=== PATIENT | male | born 1985 | race Caucasian/White ===

== ENCOUNTER 2024-03-22 20:14 | Inpatient (IN) | payer SELFPAY ==
[2024-03-22] VITALS (14 sets, daily range): BP systolic 147–194; BP diastolic 108–150; PULSE 64–96; RESP 10–19; TEMP 36.4; O2SAT 90–96
--- NOTE | ~2024-03-22 | CT_ITS ---
EXAMINATION: CT abdomen pelvis wo con DATE: 03/26/2024 15:37 INDICATION: Acute abdominal pain. TECHNIQUE: Computed tomography (CT) of the abdomen and pelvis was performed without intravenous contr ast. Automated exposure control and iterative reconstruction technique were employed. The dose-length product was 2081.70 mGy-cm. COMPARISON: CT abdomen and pelvis 03/22/2024 FINDINGS: The visualized portions of the lung bases demonstrate moderate atelectasis. There are small pleural effusions. The heart size is normal. No pericardial effusion. There are coronary artery calc ifications. There is diffuse hepatic steatosis. There is contrast in the gallbladder, which is normal in size. The spleen is normal. There is fat stranding around the pancreas, consistent with acute int erstitial pancreatitis. The adrenal glands and kidneys are normal. The prostate is mildly enlarged. T here are no dilated loops of bowel. The appendix is normal. There is a small volume of ascites. There are no pathologically enlarged lymph nodes. There is mild lumbar spondylosis. IMPRESSION: 1. Acute interstitial pancreatitis, stable from 03/22/2024. 2. Worsened small volume of ascites. 3. Worsened small pleural effusions. Reviewed, dictated and finalized at location A. TRICIAN SHIP
--- NOTE | ~2024-03-22 | US_ITS ---
EXAMINATION: US abdomen limited DATE: 03/27/2024 11:14 INDICATION: Abdominal pain. Biliary sludge. TECHNIQUE: Multiple grayscale and Doppler ultrasound images of the abdomen were obtained. COMPARISON: CT abdomen and pelvis 03/26/2024 FINDINGS: The pancreas is indistinct, consistent with pancreatitis. There is diffuse hepatic steatosi s. There is no abnormal flow in main portal vein. The gallbladder is normal in size. No gallstones or gallbladder wall thickening. There is no sonographic Babin's sign. The common duct is normal and me asures 5 mm. IMPRESSION: 1. Normal gallbladder. 2. Acute pancreatitis. 3. Diffuse hepatic steatosis. Reviewed, dictated and finalized at location A. E DEVELOPER
--- NOTE | ~2024-03-22 | MR_ITS ---
EXAMINATION: MR MRCP wo/w con/w 3D wo ind DATE: 03/27/2024 10:49 INDICATION: Acute interstitial pancreatitis. Assess for IPMN TECHNIQUE: Magnetic resonance imaging (MRI) of the abdomen was performed without and with 20 mL Multi venessa intravenous contrast. Sequences included coronal T2-weighted SS-FSE, coronal T2-weighted FS SS- FSE, coronal T2-weighted FS FIESTA, axial T2-weighted FS FIESTA, axial T2-weighted FIESTA, sagittal T 2-weighted SS-FSE, axial T1-weighted dual-echo FSPGR, axial T2-weighted SS-FSE, axial T1-weighted LAV A, axial T2-weighted STIR FSE. Thick-slab T2-weighted FRFSE-XL images were obtained for magnetic reso nance cholangiopancreatography (MRCP). Rotating maximum intensity projection 3-D reconstructions of t he volumetric data were created by the technologist. Postcontrast sequences included a time course of axial T1-weighted LAVA. COMPARISON: CT dated 03/26/2024 FINDINGS: ABDOMEN MRI: Heart size is normal. No pericardial effusion. There is consolidation along the dependen t bilateral lung bases which could represent atelectasis or pneumonia. Tiny bilateral pleural effusio ns. Hepatomegaly with diffuse hepatic steatosis. Gallbladder, spleen, bilateral adrenal glands and ki dneys are normal. There is prominent peripancreatic stranding consistent with acute interstitial panc reatitis. Homogeneous pancreatic parenchymal enhancement with no evident necrosis or lesions concerni ng for neoplasm. No dilation of the main pancreatic duct or side branches with no evident IPMN. No lo culated peripancreatic fluid collections. Visualized portion of the bowels are unremarkable. Small am ount of ascites scattered throughout the visualized abdomen. No pathologically enlarged abdominal lym phadenopathy. Mild lumbar spondylosis. Normal bone marrow signal throughout. ABDOMEN MRCP: No intra-axial hepatic ductal or ductal dilation or evident intraluminal filling defects to suggest c holedocholithiasis. The common bile duct measures up to 4 mm in maximal diameter which is normal. The distal main pancreatic duct near the ampulla measures up to 2 mm which is normal. The more distal ma in pancreatic duct too small in diameter to be visualized. IMPRESSION: 1. Radiographically uncomplicated acute interstitial pancreatitis. No pancreatic ductal dilation, IPM N or other suspicious pancreatic lesions. 2. Bibasilar lung disease which could represent atelectasis or pneumonia with tiny bilateral pleural effusions. 3. Hepatomegaly with diffuse hepatic steatosis. 4. Small amount of ascites scattered throughout the abdomen and pelvis likely related to the pancreat itis. Reviewed, dictated and finalized at location A. T GRADING SUPERVISOR IMPRESSION: 1. Radiographically uncomplicated acute interstitial pancreatitis. No pancreati c ductal dilation, IPMN or other suspicious pancreatic lesions. 2. Bibasilar lung disease which could represent atelectasis or pneumonia with t iny bilateral pleural effusions. 3. Hepatomegaly with diffuse hepatic steatosis. 4. Small amount of ascites scattered throughout the abdomen and pelvis likely r elated to the pancreatitis.
--- NOTE | ~2024-03-22 | CT_ITS ---
EXAMINATION: CT abdomen pelvis w con DATE: 03/22/2024 21:52 INDICATION: Abdominal pain TECHNIQUE: Computed tomography (CT) of the abdomen and pelvis was performed with 100 mL Omnipaque-350 intravenous contrast. Automated exposure control and iterative reconstruction technique were employe d. The dose-length product was 2036.68 mGy-cm. COMPARISON: None FINDINGS: Mild atelectasis in bilateral lower lobes. Heart size is normal. No pericardial or pleural effusion. Diffuse hepatic steatosis. Spleen, bilateral adrenal glands and kidneys are normal. There is prominen t peripancreatic edema with minimal amounts of fluid tracking craniocaudally in the anterior left par arenal spaces consistent with acute interstitial pancreatitis. No evident necrosis or loculated perip ancreatic fluid collections. Bowels including the appendix are normal. Bladder is normal. No free int raperitoneal gas or fluid. No pathologically enlarged abdominal or pelvic lymphadenopathy. Mild degen erative skeletal changes in the spine and pelvis. IMPRESSION: 1. Radiographically uncomplicated acute interstitial pancreatitis. 2. Diffuse hepatic steatosis. Reviewed, dictated and finalized at location A. PHERE PORTAL ARCHITECT
--- NOTE | ~2024-03-22 | XR_ITS ---
XR chest 1V portable Ordering provider: Andre Cha MD History: 38 years Male with . chest pain . Comparison: None. FINDINGS: MEDIASTINUM: The cardiac silhouette is slightly enlarged. Congestive nolvia. LUNGS: No infiltrates, effusions or pneumothorax. Bilateral interstitial changes which may indicate p neumonitis. Underlying fibrotic changes or pulmonary edema is not excluded. Clinical correlation advi sed. OTHER: No free air under the diaphragm. IMPRESSION: Bilateral interstitial changes with congestive nolvia. This may indicate pneumonitis. Underlying fibrot ic changes versus pulmonary edema is not excluded. Reviewed, dictated and finalized at location A. STERED NURSE NURSERY IMPRESSION: Bilateral interstitial changes with congestive nolvia. This may indicate pneumoni tis. Underlying fibrotic changes versus pulmonary edema is not excluded.
--- NOTE | ~2024-03-22 | XR_ITS ---
EXAMINATION: XR chest 1V portable DATE: 03/26/2024 09:17 INDICATION: Leukocytosis TECHNIQUE: frontal view of the chest was obtained. COMPARISON: Chest radiograph dated 03/22/2024 FINDINGS: Increased linear, bandlike opacities airspace opacities in the lateral lower lung zones which could r epresent atelectasis or pneumonia. Calcified nodules in the right lower lung zone consistent with old granulomatous disease. No pleural effusion or pneumothorax. The cardiomediastinal silhouette is norm al. IMPRESSION: 1. New opacities in the bilateral lower lung zones which could represent atelectasis, pneumonia or co mbination thereof. Reviewed, dictated and finalized at location A. GRAPH OFFICE TELEPHONE CLERK IMPRESSION: 1. New opacities in the bilateral lower lung zones which could represent atelec tasis, pneumonia or combination thereof.
--- NOTE | 2024-03-22 20:19 | ECG_ITS ---
Test Date: 2024-03-22 20:17:51 Measurements Intervals [place] Rate: 89 P: 31 [place]: 163 QRS: 49 QRSD: 98 T: 96 QT: 391 QTc: 476 Interpretive Statements SINUS RHYTHM VOLTAGE CRITERIA FOR LVH ST-T WAVE ABNORMALITY IN HIGH LATERAL LEADS- CONSIDER ISCHEMIA BASELINE ARTIFACT- I, II, III, AVR, AVL, AVF, V5-V6 ABNORMAL ECG No previous ECG available for comparison Electronically Signed On 03-22-2024 20:38:20 ROLLER OPERATOR by Per Restrepo D.O.
[2024-03-22] MEDS: HYDROmorphone HCL INJ (*CRX) 1 MG/ML SYR IV PUSH ×5 (20:23→23:06)
[2024-03-22] MEDS: ONDANSETRON INJ 4 MG/2 ML VIAL IV PUSH (20:27)
--- NOTE | 2024-03-22 20:28 | ED.GENADULT ---
HPI - General Adult General Chief complaint: Chest Pain Stated complaint: STEMI History of Present Illness HPI narrative: patient is a 38-year-old gentleman presents emergency department with chief complaint of chest pain. Patient reports that he had a heart attack about a year ago whenever he was in [place] the patient states that he has heart failure and reports that he has been poorly compliant with his medications due to cost. The patient states the pain has been ongoing since this afternoon. The patient reports that it is a sharp type pain reports that it is not improved by anything reports he is given aspirin prior to EMS arrival and reports that the pain started after eating today Related Data Allergies Allergy/AdvReac Type Severity Reaction Status Date / Time RAGWEED Allergy Mild Uncoded 08/07/09 06:53 Review of Systems Review of Systems: A 10 system review of systems was completed on the patient and is negative except for what is stated in the HPI. Nursing and ancillary documentation was reviewed. Exam Narrative: GENERAL: Well-appearing, well-nourished, and in no acute distress. HEAD: Normocephalic, atraumatic. EYES: PERRLA and EOMI. ENT: Nares clear, no rhinorrhea or epistaxis. Mucous membranes moist. NECK: Supple. CHEST: Clear to auscultation. No respiratory distress. HEART: Regular rate and rhythm. No murmur heard. Normal peripheral pulses. ABDOMEN: Soft, nontender, nondistended, normal active bowel sounds. EXTREMITIES: Normal range of motion. No edema. SKIN: Warm, dry, no rash. NEURO: No focal deficits. Alert and oriented x3. PSYCH: Normal mood and affect. Course Vital Signs Vital signs: Vital Signs Temperature 36.4 C L 03/22/24 20:14 Pulse Rate 92 03/22/24 20:14 Respiratory Rate 13 03/22/24 20:14 Blood Pressure 179/131 H 03/22/24 20:14 Pulse Oximetry 96 03/22/24 20:14 Oxygen Delivery Room Air 03/22/24 20:14 Temperature 36.4 C L 03/22/24 20:14 Pulse Rate 95 03/22/24 23:15 Respiratory Rate 19 03/22/24 23:15 Blood Pressure 194/115 H 03/22/24 23:02 Pulse Oximetry 95 03/22/24 23:02 Oxygen Delivery Room Air 03/22/24 20:30 Medical Decision Making MDM Narrative Medical decision making narrative: differential diagnosis includes ACS, pancreatitis, gastritis, laboratory studies were obtained on the patient which showed a significantly elevated lipase troponin was negative CT scan of the abdomen pelvis showed acute pancreatitis EKG showed no acute ST elevations Vital Signs Vital Signs: Vital Signs Temperature 36.4 C L 03/22/24 20:14 Pulse Rate 92 03/22/24 20:14 Respiratory Rate 13 03/22/24 20:14 Blood Pressure 179/131 H 03/22/24 20:14 Pulse Oximetry 96 03/22/24 20:14 Oxygen Delivery Room Air 03/22/24 20:14 Temperature 36.4 C L 03/22/24 20:14 Pulse Rate 95 03/22/24 23:15 Respiratory Rate 19 03/22/24 23:15 Blood Pressure 194/115 H 03/22/24 23:02 Pulse Oximetry 95 03/22/24 23:02 Oxygen Delivery Room Air 03/22/24 20:30 Lab Data 03/22/24 20:26 03/22/24 20:26 Labs: Lab Results 03/22/24 03/22/24 03/22/24 Range/Units 20:26 22:14 23:31 WBC 10.7 H (4.5-10.0) K/mm3 RBC 5.90 (4.6-6.20) M/mm3 Hgb 16.7 (14.0-18.0) g/dL Hct 49.8 (42.0-52.0) % MCV 84.4 (80-100) fl MCH 28.3 (26-34) pg MCHC 33.5 (32-36) g/dl RDW 13.1 (11.5-14.5) % Plt Count 267 (150-375) k/mm3 MPV 11.1 H (7.4-10.4) fl Immature Gran % (Auto) 0.6 H (0-0.5) % Neut % (Auto) 72.4 (45.5-73.1) % Lymph % (Auto) 14.9 L (18.3-44.2) % [place] % (Auto) 8.9 H (2.6-8.5) % Eos % (Auto) 2.5 (0-4.4) % Baso % (Auto) 0.7 (0.2-1.2) % Lymph # (Auto) 1.60 (0.9-3.2) K/mm3 [place] # (Auto) 1.0 H (0.1-0.6) K/mm3 Eos # (Auto) 0.3 (0-0.3) K/mm3 Baso # (Auto) 0.1 (0.0-0.1) K/mm3 Abs Immat Gran (auto) 0.06 H (0.00-0.031) K/mm3 Absolute Neuts (auto) 7.8 H (1.3-6.7) K/mm3 Absolute Nucleated RBC 0.000 (0.0-0.012) K/mm3 Nucleated RBC % 0.0 (0.0-0.2) % PT 13.0 (11.1-14.7) Seconds INR 1.0 APTT 23.4 (22.3-36.8) Seconds Sodium 138 (137-145) mmol/L Potassium 4.2 (3.4-5.0) mmol/L Chloride 100 (98-107) mmol/L Carbon Dioxide 29 (22-30) mmol/L Anion Gap 9 (4-12) mmol/L BUN 15 (9-20) mg/dL Creatinine 0.90 (0.7-1.3) mg/dL Estim Creat Clear Calc 171 ml/min Estimated GFR > 60 (59 - ) Glucose 335 H (65-110) mg/dL Calcium 9.6 (8.4-10.2) mg/dL Magnesium 2.2 (1.6-2.3) mg/dL Total Bilirubin 0.7 (0.2-1.3) mg/dL AST 22 (17-59) U/L ALT 24 (6-50) U/L Alkaline Phosphatase 98 (38-126) U/L Troponin I < 0.012 0.012 (0.000-0.034) ng/mL NT-Pro-B Natriuret Pep 206 H (19.9-100) pg/mL Total Protein 8.0 (6.3-8.2) g/dL Albumin 4.5 (3.5-5.1) g/dL Lipase 31945 H (23-300) U/L Urine Color Yellow (Yellow) Urine Appearance Clear (Clear) Urine pH 6.0 (5.0-9.0) Ur Specific [place] > 1.045 H (1.001-1.035) Urine Protein 1+ H (Negative) mg/dL Urine Glucose (UA) 3+ H (Negative) mg/dL Urine Ketones Negative (Negative) mg/dL Ur Blood (Man) Negative (Negative) Urine Nitrate Negative (Negative) Urine Bilirubin Negative (Negative) Urine Urobilinogen 0.2 (<2.0) mg/dL Leukocyte Esterase Rfl Negative (Negative) UNIQUE/UL Urine RBC 0-2 (0-2) /hpf Urine WBC 0-5 (0-3) /hpf Ur Squamous Epith Cells None seen (Few) /hpf Urine Bacteria None seen /hpf Urine Casts 0-2 Urine Opiates Screen Positive A (Negative) Urine Methadone Screen Negative (Negative) Ur Barbiturates Screen Negative (Negative) Ur Phencyclidine Scrn Negative (Negative) Ur Amphetamine Screen Negative (Negative) U Benzodiazepines Scrn Negative (Negative) Urine Cocaine Screen Negative (Negative) U Cannabinoids Screen Negative (Negative) Discharge Plan Discharge Clinical Impression: Acute pancreatitis Patient Disposition: Still a Patient Condition: Stable Follow-up/Referrals: Fred Rios MD [Primary Care Provider] - Time of Disposition: 00:07
[2024-03-22 20:31] LABS: Basophils Absolute Auto 0.1 K/mm3 (0.0-0.1); Basophils Percent Auto 0.7 % (0.2-1.2); Eosinophils Absolute Auto 0.3 K/mm3 (0-0.3); Eosinophils Percent Auto 2.5 % (0-4.4); Hematocrit 49.8 % (42.0-52.0); Hemoglobin 16.7 g/dL (14.0-18.0); Immature Granulocyte Absolute 0.06 K/mm3 (0.00-0.031); Immature Granulocyte Percent A 0.6 % (0-0.5); Lymphocytes Percent Auto 14.9 % (18.3-44.2); Mean Corpuscular HGB Conc 33.5 g/dl (32-36); Mean Corpuscular Hemoglobin 28.3 pg (26-34); Mean Corpuscular Volume 84.4 fl (80-100); Mean Platelet Volume 11.1 fl (7.4-10.4); Monocytes Percent Auto 8.9 % (2.6-8.5); Neutrophils Absolute Auto 7.8 K/mm3 (1.3-6.7); Neutrophils Percent Auto 72.4 % (45.5-73.1); Platelet Count Result 267 k/mm3 (150-375); Red Cell Distribution Width 13.1 % (11.5-14.5); White Blood Count 10.7 K/mm3 (4.5-10.0)
[2024-03-22] MEDS: PANTOPRAZOLE SODIUM IV 40 MG VIAL IV PUSH (20:41)
[2024-03-22 20:42] LABS: Alanine Aminotransferase 24 U/L (6-50); Albumin Level 4.5 g/dL (3.5-5.1); Alkaline Phosphatase 98 U/L (38-126); Anion Gap 9 mmol/L (4-12); Aspartate Amino Transferase 22 U/L (17-59); Bilirubin,Total 0.7 mg/dL (0.2-1.3); Blood Urea Nitrogen 15 mg/dL (9-20); Calcium 9.6 mg/dL (8.4-10.2); Carbon Dioxide 29 mmol/L (22-30); Chloride 100 mmol/L (98-107); Estimated CRCL calculation 171 ml/min; Estimated Glomerular Filt Rate > 60; Glucose 335 mg/dL (65-110); Magnesium 2.2 mg/dL (1.6-2.3); Potassium 4.2 mmol/L (3.4-5.0); Sodium 138 mmol/L (137-145)
[2024-03-22 20:46] LABS: Partial Thromboplastin Time 23.4 Seconds (22.3-36.8)
[2024-03-22 20:53] LABS: NT Pro B Type Natriuretic Pept 206 pg/mL (19.9-100); Troponin I < 0.012 ng/mL (0.000-0.034)
[2024-03-22] MEDS: NITROGLYCERIN OINTMENT 1 INCH DOSE TRANSDERM (20:53)
[2024-03-22] MEDS: BELLADONNA ALK/PHENOB ELIX 10 ML, MAG HYDROX/ALUMINUM HYD/SIMETH 30 ML, LIDOCAINE HCL 2... PO (21:08)
[2024-03-22 21:18] LABS: Lipase 25312 U/L (23-300)
[2024-03-22] MEDS: SODIUM CHLORIDE 0.9% IV 1,000 ML 999 ML IV CONT (22:16)
[2024-03-22 22:28] LABS: Add Urine Microscopic? YES; Appearance Urine Clear (Clear); Bacteria Urine None Seen /hpf; Bilirubin Urine Negative (Negative); Blood Urine Negative (Negative); Color Urine Yellow (Yellow); Glucose Urine UA 3+ mg/dL (Negative); Ketones Urine Negative (Negative); Leukocyte Esterase Ur Negative LEU/UL (Negative); Nitrate Urine Negative (Negative); Non Pathogenic Casts 0-2; Protein Urine 1+ mg/dL (Negative); RBC Urine 0-2 /hpf (0-2); Specific Grav Ur > 1.045 (1.001-1.035); Squamous Epithelial Cell Urine None Seen /hpf (Few); Urobilinogen Urine 0.2 mg/dL (<2.0); WBC Urine 0-5 /hpf (0-3)
[2024-03-22 22:38] LABS: Amphetamine Screen Urine Negative (Negative); Barbiturate Screen Urine Negative (Negative); Benzodiazepines Screen Urine Negative (Negative); Cannabinoid Screen Urine Negative (Negative); Cocaine Screen Urine Negative (Negative); Methadone Screen Urine Negative (Negative); Opiate Screen Urine Positive (Negative); Phencyclidine Screen Urine Negative (Negative)
--- NOTE | 2024-03-22 23:33 | ECG_ITS ---
Test Date: 2024-03-22 23:41:30 Measurements Intervals [place] Rate: 63 P: 51 [place]: 132 QRS: -8 QRSD: 92 T: 96 QT: 406 QTc: 418 Interpretive Statements SINUS RHYTHM DELAYED PRECORDIAL R/S TRANSITION VOLTAGE CRITERIA FOR LVH ST-T WAVE ABNORMALITY IN HIGH LATERAL LEADS- CONSIDER ISCHEMIA BASELINE ARTIFACT- I, II, AVR, AVL, V5-V6 ABNORMAL ECG Compared to ECG 03/22/2024 20:17:51 NO SIGNIFICANT CHANGE Electronically Signed On 03-23-2024 06:08:12 SECOND CHEF by Per Restrepo D.O.
[2024-03-23] VITALS (36 sets, daily range): BP systolic 138–217; BP diastolic 107–136; PULSE 64–116; RESP 13–28; TEMP 36.3–36.6; O2SAT 92–100; BMI 41.3
[2024-03-23] LABS: Troponin I 0.012 ng/mL (0.000-0.034)
[2024-03-23] MEDS: HYDROmorphone HCL INJ (*CRX) 1 MG/ML SYR IV PUSH ×4 (00:20→09:16)
[2024-03-23] MEDS: SODIUM CHLORIDE 0.9% IV 1,000 ML 999 ML IV CONT (00:33)
[2024-03-23] MEDS: KETOROLAC 30 MG/ML VIAL (*BKC) IV PUSH ×2 (01:02→06:47)
[2024-03-23] MEDS: SODIUM CHLORIDE 0.9% IV 1,000 ML 200 ML IV CONT (01:46)
[2024-03-23] MEDS: METOPROLOL TARTRATE INJ 5 MG/5 ML VIAL IV PUSH ×2 (01:50→03:21)
--- NOTE | 2024-03-23 02:44 | P.HP_ITS ---
H&P: HPI History of Present Illness Date/Time: 03/23/24 02:44 Chief Complaint: Chest pain Narrative: 38-year-old male with past medical history of asthma, CHF, essential hypertension, coronary artery disease, TIA and prior [place] due to hypertensive disease who presented to the ER from home via EMS due to chest pain. In the field a STEMI was called but EKG was reviewed by ER staff and was not consistent with STEMI findings. The patient reports that he was feeling okay until right after he ate Thanksgiving dinner. He then developed acute severe epigastric pain that radiated into his chest. He became acutely diaphoretic and nauseous. He reported that the symptoms or exactly like when he had had prior heart attack. He the patient admits that he has been noncompliant with his cardiac medications. He had not filled his Coreg or Lasix since January of 2023. He still had some pills left in his bottles of Coreg and Lasix. He was also supposed be on lisinopril. He is also supposed be on cholesterol medications. He states that he was on more expensive cardiac meds but was unable to pay for them. EMS reported that the patient's blood pressures on their arrival to his residence was in 250/150. The patient received 100 mcg of fentanyl, 4 mg of morphine and 2 sublingual nitroglycerin without improvement his pain. His labs demonstrated a lipase greater than 25,[address] demonstrated acute interstitial pancreatitis. The patient denies any recent alcohol use. He was also noted to have glucoses greater than 300. He denies a known history of diabetes. He has been having polydipsia, polyphagia and urinary frequency for the last 2-3 months. He has also been experiencing increased fatigue. The patient reports he has been more were short of breath today. He has noticed that he has been wh eezing but he has been living with his mother who has 3 cats. He is allergic to cats and does have history of asthma. He denies known history of COPD did but does smoke a pack of cigarettes per day and has smoked morbid cigarettes on a daily basis in the past. The patient reports that his pain is not any better despite receiving 6 mg of Dilaudid in the ER. He did receive 1 dose of Toradol which she thinks may have helped this pain more than the Dilaudid. The patient's urine drug screen was positive for opiates on presentation to the ER. He adamantly denies use of non-prescribed opiate agents. He did receive fentanyl and morphine in route to the ER. He was diagnosed with his cardiac condition in 2008 and had his last hospital stay in 2022 at which time he had a cardiac catheterization he did not receive any cardiac stents. Review of Systems Review of Systems: 12 systems were reviewed with pertinent positives and negatives per HPI. Except as documented in the HPI, all other systems were reviewed and are negative. FOR[facility]LY [facility], [facility] Past Medical History Medical History (Updated 03/23/24 @ 06:48 by Kate Henley DO) Asthma Coronary artery disease Hypertensive cardiomyopathy Hypertensive heart disease Kidney stones Morbid obesity with BMI of 40.0-44.9, adult Obstructive sleep apnea Patient never went and got a CPAP because he knew he could not afford it? TIA (transient ischemic attack) Tobacco abuse disorder Surgical History Surgical History (Updated 03/23/24 @ 06:22 by Kate Henley DO) History of cardiac catheterization Status post open reduction with internal fixation of fracture Left orbital fracture Family History Family History (Updated 03/23/24 @ 06:24 by Kate Henley DO) Mother Diabetes mellitus Social History Social History (Updated 03/23/24 @ 06:27 by Kate Henley DO) Social History: He is single. The patient moved here from [place] middle the year 2023. He is living with his mother. He has smoked 1-1/2 pack of cigarettes a day since he was 16. He served in the [employer] 6 years. He worked in [employer] after that but has been unemployed recently. He rarely drinks alcohol. He denies illicit substance use. Code status: Full code (patient states he would not want long-term intubation, tracheostomy or G-tube) Surrogate decision maker: Zahida (Mother) Smoking packs per day: 1 Smoking cigarettes per day: 20.0 Years smoked: 22 Smoking pack-years: 22.00 Smoking status: Heavy tobacco smoker Alcohol intake: current Drinks per week: 1 Substance use: never Do You Feel Safe in your Home?: Yes Lack of Transportation: No Lack of Food: Never True Current Housing: I Have Housing Concerned About Future Housing: No Difficulty Paying Gas/Electric Bills: No Difficulty Paying for Meds: YES Currently Unemployed: YES Education: Bachelor's Degree Difficulty w/ Childcare or Family Care: No 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: Yes ([facility]) Meds Home Medications and Allergies Home Medications Medication Instructions Recorded Confirmed Type aspirin 81 mg tablet,delayed 81 mg PO DAILY 03/23/24 03/23/24 History release (Adult Low Dose Aspirin) carvedilol 12.5 mg tablet 12.5 mg PO BID 03/23/24 03/23/24 History furosemide 40 mg tablet 40 mg PO DAILY 03/23/24 03/23/24 History lisinopril 10 mg tablet 10 mg PO DAILY 03/23/24 03/23/24 History loratadine 10 mg tablet (Claritin) 10 mg PO DAILY 03/23/24 03/23/24 History Allergies Allergy/AdvReac Type Severity Reaction Status Date / Time cat dander Allergy Itching Verified 03/23/24 02:29 RAGWEED Allergy Mild Itching Uncoded 03/23/24 02:29 Vital Signs Vital Signs - 24 hr 03/22/24 20:14 03/22/24 20:21 03/22/24 20:21 Temperature 97.5 F L Pulse Rate 92 91 Respiratory Rate 13 Blood Pressure 179/131 H Pulse Oximetry 96 95 Oxygen Delivery Room Air Room Air 03/22/24 20:30 03/22/24 20:32 03/22/24 22:18 Temperature Pulse Rate 80 94 Respiratory Rate 19 17 Blood Pressure 147/108 H Pulse Oximetry 95 96 96 Oxygen Delivery Room Air 03/22/24 22:30 03/22/24 22:32 03/22/24 22:45 Temperature Pulse Rate 74 74 87 Respiratory Rate 13 10 L 12 Blood Pressure 173/150 H Pulse Oximetry 94 93 94 Oxygen Delivery 03/22/24 22:46 03/22/24 23:00 03/22/24 23:02 Temperature Pulse Rate 76 96 96 Respiratory Rate 14 17 16 Blood Pressure 184/127 H 194/115 H Pulse Oximetry 90 95 95 Oxygen Delivery 03/22/24 23:15 03/22/24 23:30 03/22/24 23:45 Temperature Pulse Rate 95 95 64 Respiratory Rate 19 18 10 L Blood Pressure Pulse Oximetry 96 Oxygen Delivery 03/23/24 00:09 03/23/24 00:16 03/23/24 00:30 Temperature Pulse Rate 110 H 104 H Respiratory Rate 15 28 H Blood Pressure Pulse Oximetry 92 93 Oxygen Delivery 03/23/24 00:45 03/23/24 01:50 03/23/24 01:45 Temperature Pulse Rate 106 H 97 101 H Respiratory Rate 21 H 13 Blood Pressure Pulse Oximetry 95 97 Oxygen Delivery 03/23/24 01:47 03/23/24 01:50 03/23/24 02:00 Temperature Pulse Rate 100 99 73 Respiratory Rate 20 14 14 Blood Pressure 138/112 H 164/125 H Pulse Oximetry 97 96 92 Oxygen Delivery 03/23/24 02:01 03/23/24 02:09 03/23/24 02:24 Temperature Pulse Rate 84 89 Respiratory Rate 15 17 Blood Pressure 169/110 H 182/136 H 182/136 H Pulse Oximetry 97 97 97 Oxygen Delivery Exam Narrative: Weight 170.6 kg BMI 41.3 Const: Other: No acute distress, lying in bed with head of bed at 60? go appears stated age, morbidly obese HENMT: Other: Mucous membranes are tacky, no oral pharyngeal erythema, crowded posterior oropharynx, fair dentition Eyes: Other: Pupils are equal and reactive, extraocular movements intact although it appears if the patient's right eye may chronically be slightly deviated inward but patient does have history of prior orbital surgery which may be distorting the appearance of orbits Neck: Other: Large neck circumference, possible thyromegaly, no JVD Resp: Other: Tachypneic, diffuse wheezing bilateral upper and lower lung zones, no accessory muscle use Cardio: Other: Tachycardic, 2+ bilateral radial pedal pulses, no murmur, no JVD GI: Other: Diffuse abdominal tenderness but worse in the epigastric and right upper quadrant region, distended, normoactive bowel sounds : Other: 1 L of urine sitting in the urinal at be dside Skin: Other: No jaundice, no pallor, extensive struck nugent across the abdominal wall Neuro: Other: Alert oriented x4, speech is clear, no facial asymmetry Extrem: Other: 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, no clubbing , cyanosis or edema Psych: Other: Appropriate mood and affect, cooperative, H&P: Results Labs Labs: Laboratory Tests 03/22/24 20:26 03/22/24 20:26 03/22/24 03/22/24 03/22/24 20:26 22:14 23:31 WBC 10.7 H RBC 5.90 Hgb 16.7 Hct 49.8 MCV 84.4 MCH 28.3 MCHC 33.5 RDW 13.1 Plt Count 267 MPV 11.1 H Immature Gran % (Auto) 0.6 H Neut % (Auto) 72.4 Lymph % (Auto) 14.9 L [place] % (Auto) 8.9 H Eos % (Auto) 2.5 Baso % (Auto) 0.7 Lymph # (Auto) 1.60 [place] # (Auto) 1.0 H Eos # (Auto) 0.3 Baso # (Auto) 0.1 Abs Immat Gran (auto) 0.06 H Absolute Neuts (auto) 7.8 H Absolute Nucleated RBC 0.000 Nucleated RBC % 0.0 PT 13.0 INR 1.0 APTT 23.4 Sodium 138 Potassium 4.2 Chloride 100 Carbon Dioxide 29 Anion Gap 9 BUN 15 Creatinine 0.90 Estim Creat Clear Calc 171 Estimated GFR > 60 Glucose 335 H POC Capillary Glucose Hemoglobin A1c Calcium 9.6 Magnesium 2.2 Total Bilirubin 0.7 AST 22 ALT 24 Alkaline Phosphatase 98 Troponin I < 0.012 0.012 NT-Pro-B Natriuret Pep 206 H Total Protein 8.0 Albumin 4.5 Triglycerides Cholesterol LDL Cholesterol Direct HDL Direct Lipase 90487 H Urine Color Yellow Urine Appearance Clear Urine pH 6.0 Ur Specific [place] > 1.045 H Urine Protein 1+ H Urine Glucose (UA) 3+ H Urine Ketones Negative Ur Blood (Man) Negative Urine Nitrate Negative Urine Bilirubin Negative Urine Urobilinogen 0.2 Leukocyte Esterase Rfl Negative Urine RBC 0-2 Urine WBC 0-5 Ur Squamous Epith Cells None seen Urine Bacteria None seen Urine Casts 0-2 Urine Opiates Screen Positive A Urine Methadone Screen Negative Ur Barbiturates Screen Negative Ur Phencyclidine Scrn Negative Ur Amphetamine Screen Negative U Benzodiazepines Scrn Negative Urine Cocaine Screen Negative U Cannabinoids Screen Negative 03/23/24 03/23/24 05:21 06:16 WBC RBC Hgb Hct MCV MCH MCHC RDW Plt Count MPV Immature Gran % (Auto) Neut % (Auto) Lymph % (Auto) [place] % (Auto) Eos % (Auto) Baso % (Auto) Lymph # (Auto) [place] # (Auto) Eos # (Auto) Baso # (Auto) Abs Immat Gran (auto) Absolute Neuts (auto) Absolute Nucleated RBC Nucleated RBC % PT INR APTT Sodium Potassium Chloride Carbon Dioxide Anion Gap BUN Creatinine Estim Creat Clear Calc Estimated GFR Glucose POC Capillary Glucose 302 H Hemoglobin A1c 10.2 H Calcium Magnesium Total Bilirubin AST ALT Alkaline Phosphatase Troponin I NT-Pro-B Natriuret Pep Total Protein Albumin Triglycerides 160 H Cholesterol 187 LDL Cholesterol Direct 115 HDL Direct 35 Lipase Urine Color Urine Appearance Urine pH Ur Specific [place] Urine Protein Urine Glucose (UA) Urine Ketones Ur Blood (Man) Urine Nitrate Urine Bilirubin Urine Urobilinogen Leukocyte Esterase Rfl Urine RBC Urine WBC Ur Squamous Epith Cells Urine Bacteria Urine Casts Urine Opiates Screen Urine Methadone Screen Ur Barbiturates Screen Ur Phencyclidine Scrn Ur Amphetamine Screen U Benzodiazepines Scrn Urine Cocaine Screen U Cannabinoids Screen Impressions Chest X-Ray 03/22/24 20:58 (personally reviewed and interpreted, possible pulmonary vascular congestion and nolvia although patient appears euvolemic) IMPRESSION: Bilateral interstitial changes with congestive nolvia. This may indicate pneumonitis. Underlying fibrotic changes versus pulmonary edema is not excluded. EKG: Personally reviewed and interpreted Cardiology interpretation below Measurements Intervals [place] Rate: 63 P: 51 NM: 132 QRS: -8 QRSD: 92 T: 96 QT: 406 QTc: 418 Interpretive Statements SINUS RHYTHM DELAYED PRECORDIAL R/S TRANSITION VOLTAGE CRITERIA FOR LVH ST-T WAVE ABNORMALITY IN HIGH LATERAL LEADS- CONSIDER ISCHEMIA BASELINE ARTIFACT- I, II, AVR, AVL, V5-V6 ABNORMAL ECG Compared to ECG 03/22/2024 20:17:[address] personally reviewed and interpreted please see stat read interpretation listed under HPI. Official radiologic interpretation pending. Assessment and Plan Assessment and plan (1) Acute pancreatitis: Qualifiers: Pancreatitis type: idiopathic Acute pancreatitis complication: no infection or necrosis Qualified Code(s): K85.00 - Idiopathic acute pancreatitis without necrosis or infection Code(s): K85.90 - Acute pancreatitis without necrosis or infection, unspecified Status: Acute (2) Type 2 diabetes mellitus: Qualifiers: Diabetes mellitus long term care administrator insulin use: without residential use Diabetes mellitus complication status: with hyperglycemia Qualified Code(s): E11.65 - Type 2 diabetes mellitus with hyperglycemia Code(s): E11.9 - Type 2 diabetes mellitus without complications Status: Acute (3) Uncontrolled hypertension: Code(s): I10 - Essential (primary) hypertension Status: Acute (4) Nonadherence to medication: Code(s): Z91.148 - Patient's other noncompliance with medication regimen for other reason Status: Acute (5) Asthma: Qualifiers: Asthma severity: mild Asthma persistence: intermittent Asthma complication type: with acute exacerbation Qualified Code(s): J45.21 - Mild intermittent asthma with (acute) exacerbation Code(s): J45.909 - Unspecified asthma, uncomplicated Status: Acute (6) Tobacco abuse disorder: Code(s): Z72.0 - Tobacco use Status: Acute Plan The patient has acute uncomplicated interstitial pancreatitis most likely idiopathic in nature. Triglyceride levels were obtained after patient was admitted and were only minimally elevated. Usually pancreatitis due to hypertriglyceridemia would be seen with much higher triglyceride levels. Patient does not have any evidence of biliary involvement, gallstones or transaminases to indicate obstruction. Patient denies alcohol use or family history of pancreatitis. Initially patient was started on aggressive IV fluid hydration at 200 mL an hour but given the patient's history of hypertensive cardiomyopathy will decrease the fluid rate to 150 mL normal monitor strict I&O's and daily weights. Will monitor fluid status closely. Currently the patient appears euvolemic or mildly volume depleted with tacky to dry mucous membranes. Patient will be NPO due to his unrelenting pain and need for excessive amounts of narcotics. I do not want to cause more pancreatic irritat ion in the short term. The patient will be allowed to have home medications with sips. Patient does have uncontrolled hypertension in part due to pain but also due to nonadherence to medication regimen. Will resume the patient's home Coreg and lisinopril. Will also place patient on scheduled IV Lopressor if he cannot tolerate oral medications. Will also give the patient hydralazine 10 mg IV q.4 hours p.r.n. systolic blood pressures greater than 180. Patient is actively wheezing he may have a mild asthma exacerbation versus chronic wheezing doing due to allergic exposure and or some component of COPD. Will place patient on scheduled nebulizer treatments with Xopenex and Atrovent. Patient has new diagnosis of diabetes mellitus. The patient has likely been having hyperglycemia from months. His A1c came back greater than 10. Patient would benefit from diet lifestyle modifications. Will place patient on moderate sliding scale insulin with Accu-Cheks every 6 hours and hypoglycemia protocol. Smoking cessation education has been provided. Patient is not interested in quitting smoking. Nicotine patch was offered but patient refused. Patient has been admitted as observation status. Quality VTE Prophylaxis VTE prophylaxis: pharmacologic ordered (Lovenox 40 mg subQ daily.) Hospitalist MIPS Advance Care Plan I have confirmed that the patient's Advanced Care Plan is present, code status is documented, or surrogate decision maker is listed in patient medical record.: Yes Medication Reconciliation I have utilized all available resources to obtain, update and review the p atients current medications (includes all prescriptions, OTC, herbals, cannabis, and nutritional supplements).: Yes
[2024-03-23] MEDS: ONDANSETRON INJ 4 MG/2 ML VIAL IV PUSH ×3 (02:45→21:34)
[2024-03-23 05:35] LABS: Hemoglobin A1C 10.2 % (<5.7)
[2024-03-23 05:36] LABS: Cholesterol 187 mg/dL (0-200); HDL Direct 35 mg/dL; Triglycerides 160 mg/dL (<150)
[2024-03-23 05:47] LABS: LDL Cholesterol Direct 115 mg/dL
[2024-03-23 06:19] LABS: Glucose Point of Care 302 mg/dl (65-105)
[2024-03-23] MEDS: SODIUM CHLORIDE 0.9% IV 1,000 ML 150 ML IV CONT (06:47)
[2024-03-23] MEDS: INSULIN ASPART (*BKC) 100 UNITS/ML SUB-Q ×3 (06:48→19:01)
[2024-03-23] MEDS: IPRATROPIUM BR 0.02% INH SOLN 0.5 MG/2.5 ML VIAL INHALATION ×3 (07:16→19:28)
[2024-03-23] MEDS: LEVALBUTEROL NEB 1.25 MG/3 ML INHALATION ×3 (07:16→19:28)
[2024-03-23 07:47] LABS: Basophils Percent Auto 0.3 % (0.2-1.2); Eosinophils Percent Auto 0.3 % (0-4.4); Hematocrit 49.3 % (42.0-52.0); Hemoglobin 15.6 g/dL (14.0-18.0); Immature Granulocyte Absolute 0.06 K/mm3 (0.00-0.031); Immature Granulocyte Percent A 0.5 % (0-0.5); Lymphocytes Absolute Auto 1.03 K/mm3 (0.9-3.2); Lymphocytes Percent Auto 7.8 % (18.3-44.2); Mean Corpuscular HGB Conc 31.6 g/dl (32-36); Mean Corpuscular Hemoglobin 27.7 pg (26-34); Mean Corpuscular Volume 87.6 fl (80-100); Mean Platelet Volume 11.2 fl (7.4-10.4); Monocytes Absolute Auto 0.9 K/mm3 (0.1-0.6); Monocytes Percent Auto 7.1 % (2.6-8.5); Neutrophils Absolute Auto 11.2 K/mm3 (1.3-6.7); Platelet Count Result 230 k/mm3 (150-375); Red Blood Count 5.63 M/mm3 (4.6-6.20); Red Cell Distribution Width 13.4 % (11.5-14.5); White Blood Count 13.3 K/mm3 (4.5-10.0)
--- NOTE | 2024-03-23 07:53 | P.PNIM_ITS ---
Progress Note: A&P Assessment and Plan (1) Acute pancreatitis: Qualifiers: Acute pancreatitis complication: no infection or necrosis Pancreatitis type: idiopathic Qualified Code(s): K85.00 - Idiopathic acute pancreatitis without necrosis or infection Code(s): K85.90 - Acute pancreatitis without necrosis or infection, unspecified Status: Acute Assessment and Plan: acute uncomplicated interstitial pancreatitis most likely idiopathic in nature Patient denies alcohol use or family history of pancreatitis. LR @ 200 monitor for fluid overload/ pulmonary edema (2) Uncontrolled hypertension: Code(s): I10 - Essential (primary) hypertension Status: Acute Assessment and Plan: Will resume the patient's home Coreg and lisinopril. Will also give the patient hydralazine 10 mg IV q.4 hours p.r.n. systolic blood pressures greater than 180. (3) Type 2 diabetes mellitus: Qualifiers: Diabetes mellitus complication status: with hyperglycemia Diabetes mellitus manager long term care insulin use: without nursing home use Qualified Code(s): E11.65 - Type 2 diabetes mellitus with hyperglycemia Code(s): E11.9 - Type 2 diabetes mellitus without complications Status: Acute Assessment and Plan: A1c came back greater than 10. would benefit from diet lifestyle modifications Will place patient on moderate sliding scale insulin with Accu-Cheks every 6 hours and hypoglycemia protocol. (4) Asthma: Qualifiers: Asthma complication type: with acute exacerbation Asthma persistence: intermittent Asthma severity: mild Qualified Code(s): J45.21 - Mild intermittent asthma with (acute) exacerbation Code(s): J45.909 - Unspecified asthma, uncomplicated Status: Acute Assessment and Plan: Will place patient on scheduled nebulizer treatments with Xopenex and Atrovent. (5) Tobacco abuse disorder: Code(s): Z72.0 - Tobacco use Status: Acute Assessment and Plan: Smoking cessation education has been provided. Patient is not interested in quitting smoking. Nicotine patch was offered but patient refused. (6) Nonadherence to medication: Code(s): Z91.148 - Patient's other noncompliance with medication regimen for other reason Status: Acute (7) Acute pain: Code(s): R52 - Pain, unspecified Status: Acute Assessment and Plan: Change dilaudid to morphine and oral medications to see if this will help with better pain control Plan The patient has acute uncomplicated interstitial pancreatitis most likely idiopathic in nature. Triglyceride levels were obtained after patient was admitted and were only minimally elevated. Usually pancreatitis due to hypertriglyceridemia would be seen with much higher triglyceride levels. Patient does not have any evidence of biliary involvement, gallstones or t ransaminases to indicate obstruction. Patient denies alcohol use or family history of pancreatitis. Initially patient was started on aggressive IV fluid hydration at 200 mL an hour but given the patient's history of hypertensive cardiomyopathy will decrease the fluid rate to 150 mL normal monitor strict I&O's and daily weights. Will monitor fluid status closely. Currently the patient appears euvolemic or mildly volume depleted with tacky to dry mucous membranes. Patient will be NPO due to his unrelenting pain and need for excessive amounts of narcotics. I do not want to cause more pancreatic irritation in the short term. The patient will be allowed to have home medications with sips. Patient does have uncontrolled hypertension in part due to pain but also due to nonadherence to medication regimen. Will resume the patient's home Coreg and lisinopril. Will also place patient on scheduled IV Lopressor if he cannot tolerate oral medications. Will also give the patient hydralazine 10 mg IV q.4 hours p.r.n. systolic blood pressures greater than 180. Patient is actively wheezing he may have a mild asthma exacerbation versus chronic wheezing doing due to allergic exposure and or some component of COPD. Will place patient on scheduled nebulizer treatments with Xopenex and Atrovent. Patient has new diagnosis of diabetes mellitus. The patient has likely been having hyperglycemia from months. His A1c came back greater than 10. Patient would benefit from diet lifestyle modifications. Will place patient on moderate sliding scale insulin with Accu-Cheks every 6 hours and hypoglycemia protocol. Smoking cessation education has been provided. Patient is not interested in quitting smoking. Nicotine patch was offered but patient refused. Patient has been admitted as observation status. Time Spent With Patient Time with patient: Greater than 35 minutes Subjective Date/time seen: 03/23/24 07:53 Interval history: 38-year-old male with past medical history of asthma, CHF, essential hypert ension, coronary artery disease, TIA and prior NH due to hypertensive disease who presented to the ER from home with acute uncomplicated interstitial pancreatitis. Lipase decreased on AM labs, issues with pain control overnight and this morning switched Dilaudid to morphine and oral medications to see if that will help with better pain control. Review of Systems Review of Systems: 12 systems were reviewed with pertinent positives and negatives per HPI. Except as documented in the HPI, all other systems were reviewed and are negative. Exam Narrative: Weight 170.6 kg BMI 41.3 Const: Other: No acute distress, lying in bed with head of bed at 60? go appears stated age, morbidly obese HENMT: Other: Mucous membranes are tacky, no oral pharyngeal erythema, crowded posterior oropharynx, fair dentition Eyes: Other: Pupils are equal and reactive, extraocular movements intact although it appears if the patient's right eye may chronically be slightly deviated inward but patient does have history of prior orbital surgery which may be distorting the appearance of orbits Neck: Other: Large neck circumference, possible thyromegaly, no JVD Resp: Other: Tachypneic, diffuse wheezing bilateral upper and lower lung zones, no accessory muscle use Cardio: Other: Tachycardic, 2+ bilateral radial pedal pulses, no murmur, no JVD GI: Other: Diffuse abdominal tenderness but worse in the epigastric and right upper quadrant region, distended, normoactive bowel sounds : Other: 1 L of urine sitting in the urinal at be dside Skin: Other: No jaundice, no pallor, extensive struck nugent across the abdominal wall Neuro: Other: Alert oriented x4, speech is clear, no facial asymmetry Extrem: Other: 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, no clubbing , cyanosis or edema Psych: Other: Appropriate mood and affect, cooperative, Objective Data Vital Signs Vital Signs: Vital Signs - 24 hr 03/22/24 20:14 03/22/24 20:21 03/22/24 20:21 Temperature 97.5 F L Pulse Rate 92 91 Respiratory Rate 13 Blood Pressure 179/131 H Pulse Oximetry 96 95 Oxygen Delivery Room Air Room Air 03/22/24 20:30 03/22/24 20:32 03/22/24 22:18 Temperature Pulse Rate 80 94 Respiratory Rate 19 17 Blood Pressure 147/108 H Pulse Oximetry 95 96 96 Oxygen Delivery Room Air 03/22/24 22:30 03/22/24 22:32 03/22/24 22:45 Temperature Pulse Rate 74 74 87 Respiratory Rate 13 10 L 12 Blood Pressure 173/150 H Pulse Oximetry 94 93 94 Oxygen Delivery 03/22/24 22:46 03/22/24 23:00 03/22/24 23:02 Temperature Pulse Rate 76 96 96 Respiratory Rate 14 17 16 Blood Pressure 184/127 H 194/115 H Pulse Oximetry 90 95 95 Oxygen Delivery 03/22/24 23:15 03/22/24 23:30 03/22/24 23:45 Temperature Pulse Rate 95 95 64 Respiratory Rate 19 18 10 L Blood Pressure Pulse Oximetry 96 Oxygen Delivery 03/23/24 00:09 03/23/24 00:16 03/23/24 00:30 Temperature Pulse Rate 110 H 104 H Respiratory Rate 15 28 H Blood Pressure Pulse Oximetry 92 93 Oxygen Delivery 03/23/24 00:45 03/23/24 01:50 03/23/24 01:45 Temperature Pulse Rate 106 H 97 101 H Respiratory Rate 21 H 13 Blood Pressure Pulse Oximetry 95 97 Oxygen Delivery 03/23/24 01:47 03/23/24 01:50 03/23/24 02:00 Temperature Pulse Rate 100 99 73 Respiratory Rate 20 14 14 Blood Pressure 138/112 H 164/125 H Pulse Oximetry 97 96 92 Oxygen Delivery 03/23/24 02:01 03/23/24 02:09 03/23/24 02:24 Temperature Pulse Rate 84 89 Respiratory Rate 15 17 Blood Pressure 169/110 H 182/136 H 182/136 H Pulse Oximetry 97 97 97 Oxygen Delivery 03/23/24 02:32 03/23/24 03:05 03/23/24 03:21 Temperature 97.8 F Pulse Rate 87 91 93 Respiratory Rate 20 Blood Pressure 154/115 H Pulse Oximetry 95 Oxygen Delivery 03/23/24 03:15 03/23/24 04:00 03/23/24 04:24 Temperature 97.6 F Pulse Rate 93 87 64 Respiratory Rate 20 22 H Blood Pressure 180/115 H Pulse Oximetry 95 95 Oxygen Delivery Room Air Intake/Output Intake/Output: Intake & Output 03/20/24 03/21/24 03/22/24 03/23/24 23:59 23:59 23:59 23:59 Intake Total 999 1999 Balance 1000 1999 Meds/Results Medications: Active Medications Generic Name Dose Route Start Last Admin Trade Name Freq PRN Reason Stop Dose Admin Aspirin 81 mg 03/23/24 09:00 Aspirin 81 Mg Enteric Tablet PO DAILY [facility] Carvedilol 12.5 mg 03/23/24 08:00 Carvedilol 12.5 Mg Tablet PO BIDWM VIKY Dextrose 12.5 gm 03/23/24 05:48 Dextrose 50% 25 Gm/50 Ml Syringe IV PUSH PRN PRN Hypoglycemia Protocol Enoxaparin Sodium 40 mg 03/23/24 09:00 Enoxaparin 40 Mg/0.4 Ml Syringe SUB-Q DAILY VIKY Glucagon 1 mg 03/23/24 05:48 Glucagon For Inj 1 Mg Vial IM PRN PRN Hypoglycemia Protocol Glucose 15 gm 03/23/24 05:48 Glucose Oral Gel 15 Gm Of Glucse In 37.5 Gm Tube PO PRN PRN Hypoglycemia Protocol Hydralazine HCl 10 mg 03/23/24 02:44 Hydralazine Hcl 20 Mg/Ml Vial IV PUSH Q4H PRN SBP greater than 180 Hydromorphone HCl 1 mg 03/23/24 04:57 03/23/24 05:09 Hydromorphone Hcl Inj (*Crx) 1 Mg/Ml Syr IV PUSH 1 mg Q2H PRN Administration Pain Rated 7-10 Sodium Chloride 1,000 mls @ 150 mls/hr 03/23/24 00:50 03/23/24 06:47 Normal Saline Iv IV CONT 150 mls/hr .Q6H40M VIKY Administration Dextrose 1,000 mls @ 100 mls/hr 03/23/24 05:48 Dextrose 5% 1,000 Ml IVPB PRN PRN Hypoglycemia Protocol Insulin Aspart 3 - 6 units 03/23/24 06:00 03/23/24 06:48 Insulin Aspart (*Bkc) 100 Units/Ml SUB-Q 5 units Q6HR VIKY Administration Protocol Ipratropium [place] 0.5 mg 03/23/24 08:00 03/23/24 07:16 Ipratropium Br 0.02% Inh Soln 0.5 Mg/2.5 Ml Vial INHALATION 0.5 mg Q6HRT VIKY Administration Ketorolac Tromethamine 30 mg 03/23/24 00:48 03/23/24 06:47 Ketorolac 30 Mg/Ml Vial (*Bkc) IV PUSH 03/28/24 00:47 30 mg Q6H PRN Administration Pain Rated 4-6 Levalbuterol HCl 1.25 mg 03/23/24 08:00 03/23/24 07:16 Levalbuterol Neb 1.25 Mg/3 Ml INHALATION 1.25 mg Q6HRT VIKY Administration Lisinopril 10 mg 03/23/24 09:00 Lisinopril 10 Mg Tablet PO DAILY [facility] Loratadine 10 mg 03/23/24 09:00 Loratadine 10 Mg Tablet PO DAILY [facility] Metoprolol Tartrate 5 mg 03/23/24 03:00 03/23/24 03:21 Metoprolol Tartrate Inj 5 Mg/5 Ml Vial IV PUSH 5 mg Q6H VIKY Administration Ondansetron HCl 4 mg 03/23/24 00:48 03/23/24 06:47 Ondansetron Inj 4 Mg/2 Ml Vial IV PUSH 4 mg Q4H PRN Administration Nausea Pantoprazole Sodium 40 mg 03/23/24 09:00 Pantoprazole Sodium Iv 40 Mg Vial IV PUSH Q12HR [facility] Radiology Results: ITS Impressions Chest X-Ray 03/22/24 20:58 IMPRESSION: Bilateral interstitial changes with congestive nolvia. This may indicate pneumonitis. Underlying fibrotic changes versus pulmonary edema is not excluded. Labs Labs: Laboratory Results - last 24 hr 03/22/24 03/22/24 03/22/24 20:26 22:14 23:31 WBC 10.7 H RBC 5.90 Hgb 16.7 Hct 49.8 MCV 84.4 MCH 28.3 MCHC 33.5 RDW 13.1 Plt Count 267 MPV 11.1 H Immature Gran % (Auto) 0.6 H Neut % (Auto) 72.4 Lymph % (Auto) 14.9 L [place] % (Auto) 8.9 H Eos % (Auto) 2.5 Baso % (Auto) 0.7 Lymph # (Auto) 1.60 [place] # (Auto) 1.0 H Eos # (Auto) 0.3 Baso # (Auto) 0.1 Abs Immat Gran (auto) 0.06 H Absolute Neuts (auto) 7.8 H Absolute Nucleated RBC 0.000 Nucleated RBC % 0.0 PT 13.0 INR 1.0 APTT 23.4 Sodium 138 Potassium 4.2 Chloride 100 Carbon Dioxide 29 Anion Gap 9 BUN 15 Creatinine 0.90 Estim Creat Clear Calc 171 Estimated GFR > 60 Glucose 335 H POC Capillary Glucose Hemoglobin A1c Calcium 9.6 Magnesium 2.2 Total Bilirubin 0.7 AST 22 ALT 24 Alkaline Phosphatase 98 Troponin I < 0.012 0.012 NT-Pro-B Natriuret Pep 206 H Total Protein 8.0 Albumin 4.5 Triglycerides Cholesterol LDL Cholesterol Direct HDL Direct Lipase 73345 H Urine Color Yellow Urine Appearance Clear Urine pH 6.0 Ur Specific [place] > 1.045 H Urine Protein 1+ H Urine Glucose (UA) 3+ H Urine Ketones Negative Ur Blood (Man) Negative Urine Nitrate Negative Urine Bilirubin Negative Urine Urobilinogen 0.2 Leukocyte Esterase Rfl Negative Urine RBC 0-2 Urine WBC 0-5 Ur Squamous Epith Cells None seen Urine Bacteria None seen Urine Casts 0-2 Urine Opiates Screen Positive A Urine Methadone Screen Negative Ur Barbiturates Screen Negative Ur Phencyclidine Scrn Negative Ur Amphetamine Screen Negative U Benzodiazepines Scrn Negative Urine Cocaine Screen Negative U Cannabinoids Screen Negative 03/23/24 03/23/24 03/23/24 05:21 06:16 07:41 WBC 13.3 H RBC 5.63 Hgb 15.6 Hct 49.3 MCV 87.6 MCH 27.7 MCHC 31.6 L RDW 13.4 Plt Count 230 MPV 11.2 H Immature Gran % (Auto) 0.5 Neut % (Auto) 84.0 H Lymph % (Auto) 7.8 L [place] % (Auto) 7.1 Eos % (Auto) 0.3 Baso % (Auto) 0.3 Lymph # (Auto) 1.03 [place] # (Auto) 0.9 H Eos # (Auto) 0.0 Baso # (Auto) 0.0 Abs Immat Gran (auto) 0.06 H Absolute Neuts (auto) 11.2 H Absolute Nucleated RBC 0.000 Nucleated RBC % 0.0 PT INR APTT Sodium Potassium Chloride Carbon Dioxide Anion Gap BUN Creatinine Estim Creat Clear Calc Estimated GFR Glucose POC Capillary Glucose 302 H Hemoglobin A1c 10.2 H Calcium Magnesium Total Bilirubin AST ALT Alkaline Phosphatase Troponin I NT-Pro-B Natriuret Pep Total Protein Albumin Triglycerides 160 H Cholesterol 187 LDL Cholesterol Direct 115 HDL Direct 35 Lipase Urine Color Urine Appearance Urine pH Ur Specific [place] Urine Protein Urine Glucose (UA) Urine Ketones Ur Blood (Man) Urine Nitrate Urine Bilirubin Urine Urobilinogen Leukocyte Esterase Rfl Urine RBC Urine WBC Ur Squamous Epith Cells Urine Bacteria Urine Casts Urine Opiates Screen Urine Methadone Screen Ur Barbiturates Screen Ur Phencyclidine Scrn Ur Amphetamine Screen U Benzodiazepines Scrn Urine Cocaine Screen U Cannabinoids Screen Quality VTE Prophylaxis VTE prophylaxis: pharmacologic ordered (Lovenox 40 mg subQ daily.) Hospitalist MIPS Advance Care Plan I have confirmed that the patient's Advanced Care Plan is present, code status is documented, or surrogate decision maker is listed in patient medical record.: Yes Medication Reconciliation I have utilized all available resources to obtain, update and review the patients current medications (includes all prescriptions, OTC, herbals, cannabis, and nutritional supplements).: Yes
[2024-03-23 08:28] LABS: Alanine Aminotransferase 21 U/L (6-50); Alkaline Phosphatase 83 U/L (38-126); Anion Gap 8 mmol/L (4-12); Aspartate Amino Transferase 18 U/L (17-59); Bilirubin,Total 0.8 mg/dL (0.2-1.3); Blood Urea Nitrogen 21 mg/dL (9-20); Calcium 8.7 mg/dL (8.4-10.2); Carbon Dioxide 27 mmol/L (22-30); Chloride 104 mmol/L (98-107); Estimated CRCL calculation 141 ml/min; Estimated Glomerular Filt Rate > 60; Glucose 327 mg/dL (65-110); Potassium 4.8 mmol/L (3.4-5.0); Sodium 139 mmol/L (137-145)
[2024-03-23 08:41] LABS: Lipase 2895 U/L (23-300)
[2024-03-23] MEDS: ASPIRIN 81 MG ENTERIC TABLET PO (09:13)
[2024-03-23] MEDS: carvediloL 12.5 MG TABLET PO ×2 (09:14→17:46)
[2024-03-23] MEDS: LORATADINE 10 MG TABLET PO (09:14)
[2024-03-23] MEDS: lisinopriL 10 MG TABLET PO (09:15)
[2024-03-23] MEDS: ENOXAPARIN 40 MG/0.4 ML SYRINGE SUB-Q (09:16)
[2024-03-23] MEDS: PANTOPRAZOLE SODIUM IV 40 MG VIAL IV PUSH ×2 (09:20→21:33)
[2024-03-23] MEDS: LACTATED RINGERS 1,000 ML 200 ML IV CONT ×2 (09:21→14:35)
[2024-03-23] MEDS: KETOROLAC 15 MG/ML VIAL (*BKC) IV PUSH (11:37)
[2024-03-23 11:53] LABS: Glucose Point of Care 272 mg/dl (65-105)
[2024-03-23] MEDS: MORPHINE SULFATE (*CRX) 4 MG/ML INJ IV PUSH ×4 (13:29→21:33)
[2024-03-23] MEDS: hydrALAZINE HCL 20 MG/ML VIAL 10 MG IV PUSH ×2 (16:38→22:25)
[2024-03-23] MEDS: NITROGLYCERIN 0.2 MG/HR PATCH 1 PATCH TRANSDERM (18:32)
[2024-03-23] MEDS: amLODIPine BESYLATE 5 MG TABLET PO (18:32)
[2024-03-23 18:35] LABS: Glucose Point of Care 267 mg/dl (65-105)
--- NOTE | 2024-03-23 18:37 | ECG_ITS ---
Test Date: 2024-03-23 19:02:39 Measurements Intervals [place] Rate: 105 P: 49 ME: 144 QRS: 44 QRSD: 93 T: 58 QT: 351 QTc: 465 Interpretive Statements SINUS TACHYCARDIA POSSIBLE LEFT ATRIAL ENLARGEMENT BORDERLINE T WAVE ABNORMALITY- LAT/HIGH LAT LEADS BASELINE ARTIFACT- I, II, III, AVR, AVL BORDERLINE ECG Compared to ECG 03/22/2024 23:41:30 HEART HEART HAD DECREASED Electronically Signed On 03-24-2024 07:33:29 [employer]IKE WARFARE/MISSILE SYSTEMS OFFICER by Per Restrepo D.O.
--- NOTE | 2024-03-23 19:31 | PC.NURSE ---
This RN called at rapid response (see rapid note) due to continued concern regarding uncontrolled blood pressures and new onset chest pain that is not subsiding.
[2024-03-23 19:38] LABS: Troponin I < 0.012 ng/mL (0.000-0.034)
--- NOTE | 2024-03-23 19:47 | P.PNCROSS_ITS ---
Event Note Event Note Event Note: Date and time of evaluation 03/23/2024 at 19:20 Subjective: Rapid response was called due to uncontrolled blood pressure and chest pain. Upon arrival to the room the patient was sitting up complaining of severe 10/10 pain, not in the chest but in his mid to left upper abdomen. It is sharp and stabbing in nature and radiates through to the back. He is nauseated as well. Upon review of his EMR, he was admitted through the ED yesterday with pancreatitis. He denies headache, sweats, lightheadedness, chest pain, pleuritic pain, shortness of breath, and vomiting. He admits that he is not always compliant with his medications. When he checks his blood pressures at home they are typically in the 160s -170s over 110s - 120s. Objective: Nontoxic-appearing male in significant discomfort due to pain pain sitting up in bed. Skin is warm and dry. He is tachycardic with rates in the low 100s to low 120s. Mildly tachypneic, he states the pain is intensified if he takes in a deep breath. Lung sounds are a bit diminished but are otherwise clear to auscultation. Abdomen is soft and nondistended with slightly hypoactive bowel sounds. He is exquisitely tender to palpation in the upper abdomen, more so in the left upper quadrant with voluntary guarding but no rebound tenderness. No lower extremity edema. Assessment: Uncontrolled hypertension Acute pancreatitis Plan: The patient has uncontrolled hypertension. This is unfortunately not a new finding for him as he reports that his blood pressures are typically in the 160s over 110s if not higher at home. This is in part due to noncompliance and likely undertreated hypertension when he does take them. Daytime hospitalist added amlodipine 5 mg this evening and increased lisinopril to 20 mg daily. There is room to increase all of these medication depending on how he trends. Hydralazine ordered p.r.n.. Unfortunately his blood pressure continues to run high due to poorly controlled pain. Frequency of morphine dose was increased and he seems to be doing better in that regard. 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 Again, the patient has not had any chest pain whatsoever. Daytime hospitalist ordered EKG and troponins which have been normal thus far. Critical Care Time Critical Care Time: Yes Total Critical Care Time: 30 Attestation: Due to a high probability of clinically significant, life threatening deterioration, the patient required my highest level of preparedness to inte rvene emergently and I personally spent this critical care time directly and personally managing the patient. This critical care time included obtaining a history; examining the patient; pulse oximetry; ordering and review of studies; arranging urgent treatment with development of a management plan; evaluation of patient's response to treatment; frequent reassessment; and discussions with other providers. It was exclusive of separately billable procedures and treating other patients and teaching time. Please see Assessment and Plan section and the rest of the note for further information on patient assessment and treatment.
[2024-03-23] MEDS: LACTATED RINGERS 1,000 ML 75 ML IV CONT (21:34)
[2024-03-23] MEDS: SENNA/DOCUSATE SODIUM TABLET 1 TAB PO (21:34)
[2024-03-24] VITALS (22 sets, daily range): BP systolic 125–175; BP diastolic 70–109; PULSE 85–121; RESP 16–24; TEMP 36.1–37.7; O2SAT 93–98
[2024-03-24] MEDS: MORPHINE SULFATE (*CRX) 4 MG/ML INJ IV PUSH ×6 (00:27→15:50)
[2024-03-24] MEDS: INSULIN ASPART (*BKC) 100 UNITS/ML SUB-Q ×3 (00:27→12:11)
[2024-03-24 00:31] LABS: Glucose Point of Care 231 mg/dl (65-105)
[2024-03-24] MEDS: IPRATROPIUM BR 0.02% INH SOLN 0.5 MG/2.5 ML VIAL INHALATION ×3 (02:45→23:38)
[2024-03-24] MEDS: LEVALBUTEROL NEB 1.25 MG/3 ML INHALATION ×3 (02:45→23:38)
[2024-03-24 06:00] LABS: Basophils Absolute Auto 0.1 K/mm3 (0.0-0.1); Basophils Percent Auto 0.3 % (0.2-1.2); Eosinophils Percent Auto 0.1 % (0-4.4); Hematocrit 47.8 % (42.0-52.0); Immature Granulocyte Absolute 0.11 K/mm3 (0.00-0.031); Immature Granulocyte Percent A 0.6 % (0-0.5); Lymphocytes Absolute Auto 0.89 K/mm3 (0.9-3.2); Lymphocytes Percent Auto 4.5 % (18.3-44.2); Mean Corpuscular HGB Conc 31.4 g/dl (32-36); Mean Corpuscular Hemoglobin 27.8 pg (26-34); Mean Corpuscular Volume 88.5 fl (80-100); Mean Platelet Volume 11.2 fl (7.4-10.4); Monocytes Absolute Auto 1.5 K/mm3 (0.1-0.6); Monocytes Percent Auto 7.3 % (2.6-8.5); Neutrophils Absolute Auto 17.4 K/mm3 (1.3-6.7); Neutrophils Percent Auto 87.2 % (45.5-73.1); Platelet Count Result 214 k/mm3 (150-375); Red Cell Distribution Width 13.4 % (11.5-14.5); White Blood Count 19.9 K/mm3 (4.5-10.0)
[2024-03-24 06:16] LABS: Alanine Aminotransferase 17 U/L (6-50); Albumin Level 3.6 g/dL (3.5-5.1); Alkaline Phosphatase 74 U/L (38-126); Anion Gap 3 mmol/L (4-12); Aspartate Amino Transferase 18 U/L (17-59); Bilirubin,Total 1.6 mg/dL (0.2-1.3); Blood Urea Nitrogen 17 mg/dL (9-20); Calcium 8.6 mg/dL (8.4-10.2); Carbon Dioxide 32 mmol/L (22-30); Chloride 101 mmol/L (98-107); Estimated CRCL calculation 170 ml/min; Estimated Glomerular Filt Rate > 60; Glucose 219 mg/dL (65-110); Lipase 1293 U/L (23-300); Sodium 136 mmol/L (137-145)
[2024-03-24] MEDS: hydrALAZINE HCL 20 MG/ML VIAL 10 MG IV PUSH (06:46)
[2024-03-24 06:59] LABS: Glucose Point of Care 208 mg/dl (65-105)
--- NOTE | 2024-03-24 07:34 | P.PNIM_ITS ---
Progress Note: A&P Assessment and Plan (1) Acute pancreatitis: Qualifiers: Acute pancreatitis complication: no infection or necrosis Pancreatitis type: idiopathic Qualified Code(s): K85.00 - Idiopathic acute pancreatitis without necrosis or infection Code(s): K85.90 - Acute pancreatitis without necrosis or infection, unspecified Status: Acute Assessment and Plan: Acute uncomplicated interstitial pancreatitis most likely idiopathic in nature Patient denies alcohol use or family history of pancreatitis. LR @ 200 monitor for fluid overload/ pulmonary edema Pain control (2) Uncontrolled hypertension: Code(s): I10 - Essential (primary) hypertension Status: Acute Assessment and Plan: Home doses Coreg 12.5 BID, Lisinopril 10, furosemide 40mg. Off coreg and Lasix since January, blood pressure also elevated in the setting of pain --Continue hydralazine 10 mg IV q.4 hours p.r.n. for systolic blood pressures greater than 180 --Increased Coreg 12.5<25, Lisinopril 10<20mg--->10mg, started amlodipine 5mg, Started hydralazine 25 QID (hold parameters for SBP <140) (3) Type 2 diabetes mellitus: Qualifiers: Diabetes mellitus complication status: with hyperglycemia Diabetes mellitus remote computer terminal operator insulin use: without remote computer terminal operator use Qualified Code(s): E11.65 - Type 2 diabetes mellitus with hyperglycemia Code(s): E11.9 - Type 2 diabetes mellitus without complications Status: Acute Assessment and Plan: A1c came back greater than 10. would benefit from diet lifestyle modifications Will place patient on moderate sliding scale insulin with Accu-Cheks every 6 hours and hypoglycemia protocol. Patient has a working knowledge of how to inject insulin from helping family previously but needs additional education family educator to see on Tuesday if still admitted (4) Asthma: Qualifiers: Asthma complication type: with acute exacerbation Asthma persistence: intermittent Asthma severity: mild Qualified Code(s): J45.21 - Mild intermittent asthma with (acute) exacerbation Code(s): J45.909 - Unspecified asthma, uncomplicated Status: Acute Assessment and Plan: No wheezing currently. Continue scheduled nebulizer treatments with Xopenex and Atrovent, change to q8H (5) Tobacco abuse disorder: Code(s): Z72.0 - Tobacco use Status: Acute Assessment and Plan: Smoking cessation education has been provided. Patient is not interested in quitting smoking. Nicotine patch was offered but patient refused. (6) Nonadherence to medication: Code(s): Z91.148 - Patient's other noncompliance with medication regimen for other reason Status: Acute (7) Acute pain: Code(s): R52 - Pain, unspecified Status: Acute Assessment and Plan: Schedule oxyCR 10mg q12 x3 days Additional dose of morphine. Change morphine 4mg to dialaudid 1mg q3 prn (8) Conjunctivitis: Code(s): H10.9 - Unspecified conjunctivitis Status: Acute Assessment and Plan: Has significant drainage and crusting to left eye that started today Erythromycin ointment left eye QID x5 days Follow clinically (9) High bilirubin: Code(s): R17 - Unspecified jaundice Status: Acute Assessment and Plan: Bilirubin elevated to 1.5 Check hepatitis panel LFT's in AM Time Spent With Patient Time: 57 minutes Subjective Date/time seen: 03/24/24 07:34 Interval history: Still NPO and having significant pain. Overall pain slightly improved, feels that location is lower than it was, still very uncomfortable Reports crusting and drainage from left eye that started today. Bilirubin up to 1.6 38-year-old male with past medical history of asthma, CHF, essential hypertension, coronary artery disease, TIA and prior NH due to hypertensive disease who presented to the ER from home with acute uncomplicated interstitial pancreatitis. Also treating uncontrolled hypertension, had some wheezing, and left eye conjunctivitis Review of Systems Review of Systems: 12 systems were reviewed with pertinent positives and negatives per HPI. Except as documented in the HPI, all other systems were reviewed and are negative. Exam Narrative: General - Awake and alert. No acute distress Eyes - PERRLA, EOM intact, crusting and purulent drainage to left eye ENT - No thrush, No erythema Neck - No noticeable or palpable swelling Lymph Nodes - No lymphadenopathy Cardiovascular - RRR no m/r/g, no JVD Lungs: Clear to auscultation, No wheezing, use of accessory muscles, no crackles Skin - Skin warm and dry, no wounds or rashes Abdomen - Normal bowel sounds, abdomen soft, distended, lower abdominal tenderness. No RUQ tenderness Extremities - No edema, cyanosis or clubbing Musculoskeletal - 5/5 strength, normal range of motion, no swollen or erythematous joints. Neurological ? Alert and oriented x 3, CN 2-12 grossly intact. Psych: Normal mood and affect Objective Data Vital Signs Vital Signs: Vital Signs - 24 hr 03/23/24 09:14 03/23/24 12:17 03/23/24 13:00 Temperature Pulse Rate 79 98 Respiratory Rate 20 Blood Pressure 151/119 H Pulse Oximetry Oxygen Delivery Fraction of Inspired Oxygen 03/23/24 13:11 03/23/24 14:32 03/23/24 09:10 Temperature 97.3 F L Pulse Rate 102 H 95 Respiratory Rate 20 20 Blood Pressure Pulse Oximetry 100 Oxygen Delivery Room Air Fraction of Inspired Oxygen 03/23/24 16:18 03/23/24 17:46 03/23/24 17:45 Temperature Pulse Rate 112 H Respiratory Rate Blood Pressure 190/130 H 186/135 H Pulse Oximetry Oxygen Delivery Fraction of Inspired Oxygen 03/23/24 19:29 03/23/24 19:30 03/23/24 19:30 Temperature Pulse Rate 116 H Respiratory Rate 20 Blood Pressure 170/107 H Pulse Oximetry 95 Oxygen Delivery Room Air Fraction of Inspired Oxygen 03/23/24 08:00 03/23/24 12:00 03/23/24 16:00 Temperature Pulse Rate 84 95 104 H Respiratory Rate Blood Pressure Pulse Oximetry Oxygen Delivery Fraction of Inspired Oxygen 03/23/24 21:57 03/23/24 20:00 03/23/24 20:00 Temperature 97.9 F Pulse Rate 115 H 115 H 109 H Respiratory Rate 22 H 22 H Blood Pressure 187/119 H Pulse Oximetry 92 92 Oxygen Delivery Room Air Fraction of Inspired Oxygen 03/23/24 19:18 03/24/24 00:32 03/24/24 00:00 Temperature 99.8 F H Pulse Rate 113 H 116 H 121 H Respiratory Rate 24 H Blood Pressure 217/132 H 169/109 H Pulse Oximetry 96 93 Oxygen Delivery Fraction of Inspired Oxygen 03/23/24 19:36 03/24/24 02:48 03/24/24 04:00 Temperature Pulse Rate 113 H 105 H 101 H Respiratory Rate 20 20 Blood Pressure Pulse Oximetry Oxygen Delivery Fraction of Inspired Oxygen 03/24/24 02:58 03/24/24 06:00 Temperature 98.3 F Pulse Rate 102 H 99 Respiratory Rate 20 24 H Blood Pressure 175/108 H Pulse Oximetry 94 Oxygen Delivery Fraction of Inspired Oxygen Intake/Output Intake/Output: Intake & Output 03/21/24 03/22/24 03/23/24 03/24/24 23:59 23:59 23:59 23:59 Intake Total 1000 4000 100 Balance 1000 4000 100 Meds/Results Medications: Active Medications Generic Name Dose Route Start Last Admin Trade Name Freq PRN Reason Stop Dose Admin Hydrocodone Bitart/Acetaminophen 1 tab 03/23/24 18:04 Hydrocodone/Acetaminophen (*Crx) 10-325 Mg Tablet PO Q4H PRN Pain Rated 7-10 Amlodipine Besylate 5 mg 03/23/24 18:08 03/23/24 18:32 Amlodipine Besylate 5 Mg Tablet PO 5 mg DAILY VIKY Administration Aspirin 81 mg 03/23/24 09:00 03/23/24 09:13 Aspirin 81 Mg Enteric Tablet PO 81 mg DAILY VIKY Administration Carvedilol 25 mg 03/24/24 08:00 Carvedilol 25 Mg Tablet PO BIDWM VIKY Dextrose 12.5 gm 03/23/24 05:48 Dextrose 50% 25 Gm/50 Ml Syringe IV PUSH PRN PRN Hypoglycemia Protocol Enoxaparin Sodium 40 mg 03/23/24 09:00 03/23/24 09:16 Enoxaparin 40 Mg/0.4 Ml Syringe SUB-Q 40 mg DAILY VIKY Administration Glucagon 1 mg 03/23/24 05:48 Glucagon For Inj 1 Mg Vial IM PRN PRN Hypoglycemia Protocol Glucose 15 gm 03/23/24 05:48 Glucose Oral Gel 15 Gm Of Glucse In 37.5 Gm Tube PO PRN PRN Hypoglycemia Protocol Hydralazine HCl 25 mg 03/24/24 09:00 Hydralazine Hcl 25 Mg Tablet PO QID [facility] Hydralazine HCl 10 mg 03/24/24 07:23 Hydralazine Hcl 20 Mg/Ml Vial IV PUSH Q4H PRN SBP>200, dbp>110 Dextrose 1,000 mls @ 100 mls/hr 03/23/24 05:48 Dextrose 5% 1,000 Ml IVPB PRN PRN Hypoglycemia Protocol Lactated Ringer's 1,000 mls @ 75 mls/hr 03/23/24 08:50 03/23/24 21:34 Lr - Lactated Ringers Iv IV CONT 75 mls/hr .[id number] VIKY Administration Insulin Aspart 3 - 6 units 03/23/24 06:00 03/24/24 06:45 Insulin Aspart (*Bkc) 100 Units/Ml SUB-Q 3 units Q6HR VIKY Administration Protocol Ipratropium [place] 0.5 mg 03/23/24 08:00 03/24/24 02:45 Ipratropium Br 0.02% Inh Soln 0.5 Mg/2.5 Ml Vial INHALATION 0.5 mg Q6HRT VIKY Administration Levalbuterol HCl 1.25 mg 03/23/24 08:00 03/24/24 02:45 Levalbuterol Neb 1.25 Mg/3 Ml INHALATION 1.25 mg Q6HRT VIKY Administration Lisinopril 20 mg 03/24/24 09:00 Lisinopril 20 Mg Tablet PO QAM VIKY Loratadine 10 mg 03/23/24 09:00 03/23/24 09:14 Loratadine 10 Mg Tablet PO 10 mg DAILY VIKY Administration Metoprolol Tartrate 5 mg 03/23/24 03:00 03/23/24 03:21 Metoprolol Tartrate Inj 5 Mg/5 Ml Vial IV PUSH 5 mg Q6H VIKY Administration Morphine Sulfate 4 mg 03/23/24 20:21 03/24/24 06:46 Morphine Sulfate (*Crx) 4 Mg/Ml Inj IV PUSH 4 mg Q3H PRN Administration Pain Rated 7-10 Nitroglycerin 1 patch 03/23/24 18:04 03/23/24 18:32 Nitroglycerin 0.2 Mg/Hr Patch TRANSDERM 1 patch QAM [facility] Administration Ondansetron HCl 4 mg 03/23/24 00:48 03/23/24 21:34 Ondansetron Inj 4 Mg/2 Ml Vial IV PUSH 4 mg Q4H PRN Administration Nausea Pantoprazole Sodium 40 mg 03/23/24 09:00 03/23/24 21:33 Pantoprazole Sodium Iv 40 Mg Vial IV PUSH 40 mg Q12HR VIKY Administration Senna/Docusate Sodium 1 tab 03/23/24 21:00 03/23/24 21:34 Senna/Docusate Sodium Tablet PO 1 tab HS VIKY Administration Radiology Results: ITS Impressions Chest X-Ray 03/22/24 20:58 IMPRESSION: Bilateral interstitial changes with congestive nolvia. This may indicate pneumonitis. Underlying fibrotic changes versus pulmonary edema is not excluded. Abdomen/Pelvis CT 11/29/24 08:48 IMPRESSION: 1. Radiographically uncomplicated acute interstitial pancreatitis. 2. Diffuse hepatic steatosis. Labs Labs: Laboratory Results - last 24 hr 03/23/24 03/23/24 03/23/24 07:41 11:42 18:24 WBC 13.3 H RBC 5.63 Hgb 15.6 Hct 49.3 MCV 87.6 MCH 27.7 MCHC 31.6 L RDW 13.4 Plt Count 230 MPV 11.2 H Immature Gran % (Auto) 0.5 Neut % (Auto) 84.0 H Lymph % (Auto) 7.[address] [place] % (Auto) 7.1 Eos % (Auto) 0.3 Baso % (Auto) 0.3 Lymph # (Auto) 1.03 [place] # (Auto) 0.9 H Eos # (Auto) 0.0 Baso # (Auto) 0.0 Abs Immat Gran (auto) 0.06 H Absolute Neuts (auto) 11.2 H Absolute Nucleated RBC 0.000 Nucleated RBC % 0.0 Sodium 139 Potassium 4.8 Chloride 104 Carbon Dioxide 27 Anion Gap 8 BUN 21 H Creatinine 1.10 Estim Creat Clear Calc 141 Estimated GFR > 60 Glucose 327 H POC Capillary Glucose 272 H 267 H Calcium 8.7 Total Bilirubin 0.8 AST 18 ALT 21 Alkaline Phosphatase 83 Troponin I Total Protein 7.0 Albumin 4.0 Lipase 2895 H 03/23/24 03/24/24 03/24/24 19:08 00:27 05:32 WBC 19.9 H RBC 5.40 Hgb 15.0 Hct 47.8 MCV 88.5 MCH 27.8 MCHC 31.4 L RDW 13.4 Plt Count 214 MPV 11.2 H Immature Gran % (Auto) 0.6 H Neut % (Auto) 87.2 H Lymph % (Auto) 4.[address] [place] % (Auto) 7.3 Eos % (Auto) 0.1 Baso % (Auto) 0.3 Lymph # (Auto) 0.[address] [place] # (Auto) 1.5 H Eos # (Auto) 0.0 Baso # (Auto) 0.1 Abs Immat Gran (auto) 0.11 H Absolute Neuts (auto) 17.4 H Absolute Nucleated RBC 0.000 Nucleated RBC % 0.0 Sodium 136 L Potassium 4.0 Chloride 101 Carbon Dioxide 32 H Anion Gap 3 L BUN 17 Creatinine 0.90 Estim Creat Clear Calc 170 Estimated GFR > 60 Glucose 219 H POC Capillary Glucose 231 H Calcium 8.6 Total Bilirubin 1.6 H AST 18 ALT 17 Alkaline Phosphatase 74 Troponin I < 0.012 Total Protein 7.0 Albumin 3.6 Lipase 1293 H 03/24/24 06:40 WBC RBC Hgb Hct MCV MCH MCHC RDW Plt Count MPV Immature Gran % (Auto) Neut % (Auto) Lymph % (Auto) [place] % (Auto) Eos % (Auto) Baso % (Auto) Lymph # (Auto) [place] # (Auto) Eos # (Auto) Baso # (Auto) Abs Immat Gran (auto) Absolute Neuts (auto) Absolute Nucleated RBC Nucleated RBC % Sodium Potassium Chloride Carbon Dioxide Anion Gap BUN Creatinine Estim Creat Clear Calc Estimated GFR Glucose POC Capillary Glucose 208 H Calcium Total Bilirubin AST ALT Alkaline Phosphatase Troponin I Total Protein Albumin Lipase Quality VTE Prophylaxis VTE prophylaxis: pharmacologic ordered (Lovenox 40 mg subQ daily.) Hospitalist MIPS Advance Care Plan I have confirmed that the patient's Advanced Care Plan is present, code status is documented, or surrogate decision maker is listed in patient medical record.: Yes Medication Reconciliation I have utilized all available resources to obtain, update and review the patients current medications (includes all prescriptions, OTC, herbals, cannabi s, and nutritional supplements).: Yes
[2024-03-24] MEDS: carvediloL 25 MG TABLET PO ×2 (09:18→17:48)
[2024-03-24] MEDS: ASPIRIN 81 MG ENTERIC TABLET PO (09:19)
[2024-03-24] MEDS: ENOXAPARIN 40 MG/0.4 ML SYRINGE SUB-Q (09:19)
[2024-03-24] MEDS: amLODIPine BESYLATE 5 MG TABLET PO (09:19)
[2024-03-24] MEDS: LORATADINE 10 MG TABLET PO (09:19)
[2024-03-24] MEDS: lisinopriL 20 MG TABLET PO (09:19)
[2024-03-24] MEDS: hydrALAZINE HCL 25 MG TABLET PO ×2 (09:19→20:24)
[2024-03-24] MEDS: PANTOPRAZOLE SODIUM IV 40 MG VIAL IV PUSH ×2 (09:20→20:24)
--- NOTE | 2024-03-24 09:41 | PC.NURSE ---
Voicemail left with plate fitter regarding consult. Awaiting response.
[2024-03-24] MEDS: LACTATED RINGERS 1,000 ML 75 ML IV CONT (11:50)
[2024-03-24 11:57] LABS: Glucose Point of Care 206 mg/dl (65-105)
--- NOTE | 2024-03-24 15:57 | PCRCNOTE ---
Window of time for administration has passed. See next scheduled administration.
[2024-03-24 16:54] LABS: Glucose Point of Care 220 mg/dl (65-105)
[2024-03-24 17:54] LABS: Glucose Point of Care 185 mg/dl (65-105)
[2024-03-24] MEDS: ERYTHROMYCIN OPHTH OINTMENT 1 GM TUBE 1 APPLIC LEFT EYE (20:24)
[2024-03-24] MEDS: SENNA/DOCUSATE SODIUM TABLET 1 TAB PO (20:24)
[2024-03-24] MEDS: oxyCODONE HCL (*CRX) 10 MG TAB SR 12HR PO (20:24)
[2024-03-25] VITALS (15 sets, daily range): BP systolic 133–146; BP diastolic 64–99; PULSE 71–88; RESP 16–20; TEMP 36.4–36.6; O2SAT 92–97
[2024-03-25 00:19] LABS: Glucose Point of Care 178 mg/dl (65-105)
[2024-03-25] MEDS: LACTATED RINGERS 1,000 ML 75 ML IV CONT ×2 (01:05→15:11)
[2024-03-25] MEDS: HYDROcodone/acetaminophen (*CRX) 10-325 MG TABLET 1 TAB PO ×2 (04:42→17:01)
[2024-03-25 05:49] LABS: Basophils Absolute Auto 0.1 K/mm3 (0.0-0.1); Basophils Percent Auto 0.4 % (0.2-1.2); Eosinophils Absolute Auto 0.3 K/mm3 (0-0.3); Eosinophils Percent Auto 1.6 % (0-4.4); Hematocrit 43.1 % (42.0-52.0); Hemoglobin 13.4 g/dL (14.0-18.0); Immature Granulocyte Absolute 0.12 K/mm3 (0.00-0.031); Immature Granulocyte Percent A 0.7 % (0-0.5); Lymphocytes Absolute Auto 1.14 K/mm3 (0.9-3.2); Lymphocytes Percent Auto 6.3 % (18.3-44.2); Mean Corpuscular HGB Conc 31.1 g/dl (32-36); Mean Corpuscular Hemoglobin 27.6 pg (26-34); Mean Corpuscular Volume 88.9 fl (80-100); Mean Platelet Volume 11.3 fl (7.4-10.4); Monocytes Absolute Auto 1.8 K/mm3 (0.1-0.6); Monocytes Percent Auto 9.6 % (2.6-8.5); Neutrophils Absolute Auto 14.9 K/mm3 (1.3-6.7); Neutrophils Percent Auto 81.4 % (45.5-73.1); Platelet Count Result 195 k/mm3 (150-375); Red Blood Count 4.85 M/mm3 (4.6-6.20); Red Cell Distribution Width 13.7 % (11.5-14.5); White Blood Count 18.2 K/mm3 (4.5-10.0)
[2024-03-25 06:00] LABS: Alanine Aminotransferase 15 U/L (6-50); Albumin Level 3.5 g/dL (3.5-5.1); Alkaline Phosphatase 70 U/L (38-126); Anion Gap 4 mmol/L (4-12); Aspartate Amino Transferase 17 U/L (17-59); Bilirubin,Total 1.4 mg/dL (0.2-1.3); Blood Urea Nitrogen 23 mg/dL (9-20); Calcium 8.6 mg/dL (8.4-10.2); Carbon Dioxide 31 mmol/L (22-30); Chloride 101 mmol/L (98-107); Estimated CRCL calculation 170 ml/min; Estimated Glomerular Filt Rate > 60; Glucose 177 mg/dL (65-110); Potassium 3.6 mmol/L (3.4-5.0); Sodium 136 mmol/L (137-145)
[2024-03-25 07:17] LABS: Glucose Point of Care 170 mg/dl (65-105)
[2024-03-25] MEDS: IPRATROPIUM BR 0.02% INH SOLN 0.5 MG/2.5 ML VIAL INHALATION ×2 (07:24→16:17)
[2024-03-25] MEDS: LEVALBUTEROL NEB 1.25 MG/3 ML INHALATION ×2 (07:24→16:17)
--- NOTE | 2024-03-25 07:33 | P.PNIM_ITS ---
Progress Note: A&P Assessment and Plan (1) Acute pancreatitis: Qualifiers: Acute pancreatitis complication: no infection or necrosis Pancreatitis type: idiopathic Qualified Code(s): K85.00 - Idiopathic acute pancreatitis without necrosis or infection Code(s): K85.90 - Acute pancreatitis without necrosis or infection, unspecified Status: Acute Assessment and Plan: Acute uncomplicated interstitial pancreatitis most likely idiopathic in nature Patient denies alcohol use or family history of pancreatitis. LR @ 75 monitor for fluid overload/ pulmonary edema Pain control Okay for clear liquid diet (2) Uncontrolled hypertension: Code(s): I10 - Essential (primary) hypertension Status: Acute Assessment and Plan: Home doses Coreg 12.5 BID, Lisinopril 10, furosemide 40mg. Off coreg and Lasix since January, blood pressure also elevated in the setting of pain --Continue hydralazine 10 mg IV q.4 hours p.r.n. for systolic blood pressures greater than 180 --Increased Coreg 12.5<25, Lisinopril 10<20mg--->10mg, started amlodipine 5mg, Started hydralazine 25 QID (hold parameters for SBP <140) (3) Type 2 diabetes mellitus: Qualifiers: Diabetes mellitus complication status: with hyperglycemia Diabetes mellitus care home insulin use: without care home use Qualified Code(s): E11.65 - Type 2 diabetes mellitus with hyperglycemia Code(s): E11.9 - Type 2 diabetes mellitus without complications Status: Acute Assessment and Plan: A1c came back greater than 10. would benefit from diet lifestyle modifications Will place patient on moderate sliding scale insulin with Accu-Cheks every 6 hours and hypoglycemia protocol. Patient has a working knowledge of how to inject insulin from helping family previously but needs additional education human resources compliance manager to see on Tuesday if still admitted (4) Asthma: Qualifiers: Asthma complication type: with acute exacerbation Asthma persistence: intermittent Asthma severity: mild Qualified Code(s): J45.21 - Mild intermittent asthma with (acute) exacerbation Code(s): J45.909 - Unspecified asthma, uncomplicated Status: Acute Assessment and Plan: No wheezing currently. Continue scheduled nebulizer treatments with Xopenex and Atrovent, change to q8H (5) Tobacco abuse disorder: Code(s): Z72.0 - Tobacco use Status: Acute Assessment and Plan: Smoking cessation education has been provided. Patient is not interested in quitting smoking. Nicotine patch was offered but patient refused. (6) Nonadherence to medication: Code(s): Z91.148 - Patient's other noncompliance with medication regimen for other reason Status: Acute (7) Acute pain: Code(s): R52 - Pain, unspecified Status: Acute Assessment and Plan: Schedule oxyCR 10mg q12 x3 days Additional dose of morphine. Change morphine 4mg to dialaudid 1mg q3 prn (8) Conjunctivitis: Code(s): H10.9 - Unspecified conjunctivitis Status: Acute Assessment and Plan: Has significant drainage and crusting to left eye that started today Erythromycin ointment left eye QID x5 days Follow clinically (9) High bilirubin: Code(s): R17 - Unspecified jaundice Status: Acute Assessment and Plan: Bilirubin elevated to 1.5 Check hepatitis panel LFT's in AM Subjective Date/time seen: 03/25/24 07:33 Interval history: 38-year-old male with past medical history of asthma, CHF, essential hypertensio n, coronary artery disease, TIA and prior [place] due to hypertensive disease who presented to the ER from home with acute uncomplicated interstitial pancreatitis. Also treating uncontrolled hypertension, had some wheezing, and left eye conjunctivitis Leukocytosis and Bilirubin trending down. LFTs normal, hepatitis panel pending patient's pain is improved this morning and he would like to try clear liquid diet. Review of Systems Review of Systems: 12 systems were reviewed with pertinent positives and negatives per HPI. Except as documented in the HPI, all other systems were reviewed and are negative. Exam Narrative: General - Awake and alert. No acute distress Eyes - PERRLA, EOM intact, crusting and purulent drainage to left eye ENT - No thrush, No erythema Neck - No noticeable or palpable swelling Lymph Nodes - No lymphadenopathy Cardiovascular - RRR no m/r/g, no JVD Lungs: Clear to auscultation, No wheezing, use of accessory muscles, no crackles Skin - Skin warm and dry, no wounds or rashes Abdomen - Normal bowel sounds, abdomen soft, distended, lower abdominal tenderness. No RUQ tenderness Extremities - No edema, cyanosis or clubbing Musculoskeletal - 5/5 strength, normal range of motion, no swollen or erythematous joints. Neurological ? Alert and oriented x 3, CN 2-12 grossly intact. Psych: Normal mood and affect Const: Other: No acute distress, lying in bed with head of bed at 60? go appears stated age, morbidly obese HENMT: Other: Mucous membranes are tacky, no oral pharyngeal erythema, crowded posterior oropharynx, fair dentition Eyes: Other: Pupils are equal and reactive, extraocular movements intact although it appears if the patient's right eye may chronically be slightly deviated inward but patient does have history of prior orbital surgery which may be distorting the appearance of orbits Neck: Other: Large neck circumference, possible thyromegaly, no JVD Resp: Other: Tachypneic, diffuse wheezing bilateral upper and lower lung zones, no accessory muscle use Cardio: Other: Tachycardic, 2+ bilateral radial pedal pulses, no murmur, no JVD GI: Other: Diffuse abdominal tenderness but worse in the epigastric and right upper quadrant region, distended, normoactive bowel sounds : Other: 1 L of urine sitting in the urinal at be dside Skin: Other: No jaundice, no pallor, extensive struck nugent across the abdominal wall Neuro: Other: Alert oriented x4, speech is clear, no facial asymmetry Extrem: Other: 5/5 strength 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, no clubbing , cyanosis or edema Psych: Other: Appropriate mood and affect, cooperative, Objective Data Vital Signs Vital Signs: Vital Signs - 24 hr 03/24/24 08:46 03/24/24 08:46 03/24/24 09:02 Temperature Pulse Rate 96 99 Respiratory Rate 16 16 Blood Pressure Pulse Oximetry 94 Oxygen Delivery Room Air Fraction of Inspired Oxygen 21 03/24/24 09:18 03/24/24 09:18 03/24/24 09:15 Temperature Pulse Rate 100 100 Respiratory Rate Blood Pressure 156/93 H Pulse Oximetry Oxygen Delivery Room Air Fraction of Inspired Oxygen 03/24/24 08:00 03/24/24 12:49 03/24/24 12:00 Temperature 97.8 F Pulse Rate 101 H 92 87 Respiratory Rate 16 Blood Pressure 139/95 H Pulse Oximetry 94 Oxygen Delivery Fraction of Inspired Oxygen 03/24/24 15:41 03/24/24 16:00 03/24/24 17:48 Temperature Pulse Rate 88 92 Respiratory Rate Blood Pressure 132/83 Pulse Oximetry Oxygen Delivery Fraction of Inspired Oxygen 03/24/24 18:14 03/24/24 22:06 03/24/24 20:00 Temperature 97.0 F L 97.8 F Pulse Rate 90 90 90 Respiratory Rate 16 16 16 Blood Pressure 125/78 129/70 Pulse Oximetry 93 98 98 Oxygen Delivery Room Air Fraction of Inspired Oxygen 21 03/24/24 20:00 03/24/24 23:38 03/24/24 23:42 Temperature Pulse Rate 85 95 Respiratory Rate 20 Blood Pressure Pulse Oximetry 94 Oxygen Delivery Room Air Fraction of Inspired Oxygen 03/24/24 23:41 03/24/24 23:46 03/25/24 00:00 Temperature 97.7 F Pulse Rate 92 88 86 Respiratory Rate 20 20 Blood Pressure 133/76 Pulse Oximetry 94 Oxygen Delivery Fraction of Inspired Oxygen 03/25/24 04:00 03/25/24 05:49 03/25/24 07:25 Temperature 97.5 F L Pulse Rate 80 88 81 Respiratory Rate 16 20 Blood Pressure 146/99 H Pulse Oximetry 94 Oxygen Delivery Fraction of Inspired Oxygen Intake/Output Intake/Output: Intake & Output 03/22/24 03/23/24 03/24/24 03/25/24 23:59 23:59 23:59 23:59 Intake Total 1000 4000 1100 1043.8 Balance 1000 4000 1100 1043.8 Meds/Results Medications: Active Medications Generic Name Dose Route Start Last Admin Trade Name Freq PRN Reason Stop Dose Admin Hydrocodone Bitart/Acetaminophen 1 tab 03/24/24 18:53 03/25/24 04:42 Hydrocodone/Acetaminophen (*Crx) 10-325 Mg Tablet PO 1 tab Q4H PRN Administration Pain Rated 5 or Less Amlodipine Besylate 5 mg 03/23/24 18:08 03/24/24 09:19 Amlodipine Besylate 5 Mg Tablet PO 5 mg DAILY VIKY Administration Aspirin 81 mg 03/23/24 09:00 03/24/24 09:19 Aspirin 81 Mg Enteric Tablet PO 81 mg DAILY VIKY Administration Carvedilol 25 mg 03/24/24 08:00 03/24/24 17:48 Carvedilol 25 Mg Tablet PO 25 mg BIDWM VIKY Administration Dextrose 12.5 gm 03/23/24 05:48 Dextrose 50% 25 Gm/50 Ml Syringe IV PUSH PRN PRN Hypoglycemia Protocol Enoxaparin Sodium 40 mg 03/23/24 09:00 03/24/24 09:19 Enoxaparin 40 Mg/0.4 Ml Syringe SUB-Q 40 mg DAILY VIKY Administration Erythromycin 1 applic 03/24/24 21:00 03/24/24 20:24 Erythromycin Ophth Ointment 1 Gm Tube LEFT EYE 03/30/24 09:00 1 applic QID VIKY Administration Glucagon 1 mg 03/23/24 05:48 Glucagon For Inj 1 Mg Vial IM PRN PRN Hypoglycemia Protocol Glucose 15 gm 03/23/24 05:48 Glucose Oral Gel 15 Gm Of Glucse In 37.5 Gm Tube PO PRN PRN Hypoglycemia Protocol Hydralazine HCl 25 mg 03/24/24 09:00 03/24/24 20:24 Hydralazine Hcl 25 Mg Tablet PO 25 mg QID VIKY Administration Hydralazine HCl 10 mg 03/24/24 07:23 Hydralazine Hcl 20 Mg/Ml Vial IV PUSH Q4H PRN SBP>200, dbp>110 Hydromorphone HCl 1 mg 03/24/24 18:51 Hydromorphone Hcl Inj (*Crx) 1 Mg/Ml Syr IV PUSH Q3H PRN Pain Rated 7-10 Dextrose 1,000 mls @ 100 mls/hr 03/23/24 05:48 Dextrose 5% 1,000 Ml IVPB PRN PRN Hypoglycemia Protocol Lactated Ringer's 1,000 mls @ 75 mls/hr 03/23/24 08:50 03/25/24 01:05 Lr - Lactated Ringers Iv IV CONT 75 mls/hr .[id number] VIKY Administration Insulin Aspart 3 - 6 units 03/23/24 06:00 03/25/24 06:00 Insulin Aspart (*Bkc) 100 Units/Ml SUB-Q Not Given Q6HR [facility] Protocol Ipratropium Crozier 0.5 mg 03/25/24 00:00 03/25/24 07:24 Ipratropium Br 0.02% Inh Soln 0.5 Mg/2.5 Ml Vial INHALATION 0.5 mg Q8HRT VIKY Administration Levalbuterol HCl 1.25 mg 03/24/24 18:45 03/25/24 07:24 Levalbuterol Neb 1.25 Mg/3 Ml INHALATION 1.25 mg Q8HRT VIKY Administration Lisinopril 10 mg 03/25/24 09:00 Lisinopril 10 Mg Tablet PO QAM VIKY Loratadine 10 mg 03/23/24 09:00 03/24/24 09:19 Loratadine 10 Mg Tablet PO 10 mg DAILY VIKY Administration Metoprolol Tartrate 5 mg 03/23/24 03:00 03/23/24 03:21 Metoprolol Tartrate Inj 5 Mg/5 Ml Vial IV PUSH 5 mg Q6H VIKY Administration Nitroglycerin 1 patch 03/23/24 18:04 03/24/24 09:37 Nitroglycerin 0.2 Mg/Hr Patch TRANSDERM Not Given QAM VIKY Ondansetron HCl 4 mg 03/23/24 00:48 03/23/24 21:34 Ondansetron Inj 4 Mg/2 Ml Vial IV PUSH 4 mg Q4H PRN Administration Nausea Oxycodone HCl 10 mg 03/24/24 21:00 03/24/24 20:24 Oxycodone Hcl (*Crx) 10 Mg Tab Sr 12hr PO 03/27/24 09:00 10 mg Q12HR VIKY Administration Pantoprazole Sodium 40 mg 03/23/24 09:00 03/24/24 20:24 Pantoprazole Sodium Iv 40 Mg Vial IV PUSH 40 mg Q12HR VIKY Administration Senna/Docusate Sodium 1 tab 03/23/24 21:00 03/24/24 20:24 Senna/Docusate Sodium Tablet PO 1 tab HS VIKY Administration Radiology Results: ITS Impressions Chest X-Ray 03/22/24 20:58 IMPRESSION: Bilateral interstitial changes with congestive nolvia. This may indicate pneumon itis. Underlying fibrotic changes versus pulmonary edema is not excluded. Abdomen/Pelvis CT 03/23/24 08:48 IMPRESSION: 1. Radiographically uncomplicated acute interstitial pancreatitis. 2. Diffuse hepatic steatosis. Labs Labs: Laboratory Results - last 24 hr 03/24/24 03/24/24 03/24/24 11:48 16:50 17:50 WBC RBC Hgb Hct MCV MCH MCHC RDW Plt Count MPV Immature Gran % (Auto) Neut % (Auto) Lymph % (Auto) Benzie % (Auto) Eos % (Auto) Baso % (Auto) Lymph # (Auto) Benzie # (Auto) Eos # (Auto) Baso # (Auto) Abs Immat Gran (auto) Absolute Neuts (auto) Absolute Nucleated RBC Nucleated RBC % Sodium Potassium Chloride Carbon Dioxide Anion Gap BUN Creatinine Estim Creat Clear Calc Estimated GFR Glucose POC Capillary Glucose 206 H 220 H 185 H Calcium Total Bilirubin Direct Bilirubin AST ALT Alkaline Phosphatase Total Protein Albumin 03/24/24 03/25/24 03/25/24 23:37 05:22 05:53 WBC 18.2 H RBC 4.85 Hgb 13.4 L Hct 43.1 MCV 88.9 MCH 27.6 MCHC 31.1 L RDW 13.7 Plt Count 195 MPV 11.3 H Immature Gran % (Auto) 0.7 H Neut % (Auto) 81.4 H Lymph % (Auto) 6.3 L Benzie % (Auto) 9.6 H Eos % (Auto) 1.6 Baso % (Auto) 0.4 Lymph # (Auto) 1.14 Benzie # (Auto) 1.8 H Eos # (Auto) 0.3 Baso # (Auto) 0.1 Abs Immat Gran (auto) 0.12 H Absolute Neuts (auto) 14.9 H Absolute Nucleated RBC 0.000 Nucleated RBC % 0.0 Sodium 136 L Potassium 3.6 Chloride 101 Carbon Dioxide 31 H Anion Gap 4 BUN 23 H Creatinine 0.90 Estim Creat Clear Calc 170 Estimated GFR > 60 Glucose 177 H POC Capillary Glucose 178 H 170 H Calcium 8.6 Total Bilirubin 1.4 H Direct Bilirubin 0.0 AST 17 ALT 15 Alkaline Phosphatase 70 Total Protein 7.0 Albumin 3.5 Quality VTE Prophylaxis VTE prophylaxis: pharmacologic ordered (Lovenox 40 mg subQ daily.)
[2024-03-25] MEDS: ASPIRIN 81 MG ENTERIC TABLET PO (08:23)
[2024-03-25] MEDS: oxyCODONE HCL (*CRX) 10 MG TAB SR 12HR PO ×2 (08:23→20:34)
[2024-03-25] MEDS: ENOXAPARIN 40 MG/0.4 ML SYRINGE SUB-Q (08:23)
[2024-03-25] MEDS: hydrALAZINE HCL 25 MG TABLET PO ×3 (08:23→20:34)
[2024-03-25] MEDS: LORATADINE 10 MG TABLET PO (08:24)
[2024-03-25] MEDS: PANTOPRAZOLE SODIUM IV 40 MG VIAL IV PUSH ×2 (08:24→20:33)
[2024-03-25] MEDS: amLODIPine BESYLATE 5 MG TABLET PO (08:24)
[2024-03-25] MEDS: lisinopriL 10 MG TABLET PO (08:24)
[2024-03-25] MEDS: carvediloL 25 MG TABLET PO ×2 (08:24→17:02)
[2024-03-25 12:28] LABS: Glucose Point of Care 168 mg/dl (65-105)
[2024-03-25] MEDS: ERYTHROMYCIN OPHTH OINTMENT 1 GM TUBE 1 APPLIC LEFT EYE (13:38)
[2024-03-25] MEDS: HYDROmorphone HCL INJ (*CRX) 1 MG/ML SYR IV PUSH (15:10)
[2024-03-25 18:34] LABS: Glucose Point of Care 219 mg/dl (65-105)
[2024-03-25] MEDS: INSULIN ASPART (*BKC) 100 UNITS/ML SUB-Q (18:38)
[2024-03-25] MEDS: SENNA/DOCUSATE SODIUM TABLET 1 TAB PO (20:34)
[2024-03-25 23:50] LABS: Glucose Point of Care 195 mg/dl (65-105)
[2024-03-26] VITALS (13 sets, daily range): BP systolic 117–140; BP diastolic 68–79; PULSE 80–88; RESP 17–24; TEMP 36.6–36.9; O2SAT 95–98; BMI 41.3
[2024-03-26] MEDS: HYDROcodone/acetaminophen (*CRX) 10-325 MG TABLET 1 TAB PO ×3 (00:16→14:42)
[2024-03-26] MEDS: LEVALBUTEROL NEB 1.25 MG/3 ML INHALATION ×4 (00:20→23:57)
[2024-03-26] MEDS: IPRATROPIUM BR 0.02% INH SOLN 0.5 MG/2.5 ML VIAL INHALATION ×4 (00:20→23:57)
[2024-03-26 01:36] LABS: Hepatitis B Surface Antigen Negative (Negative)
[2024-03-26 01:42] LABS: HAV RESULT Negative (Negative); Hepatitis B Core IgM Result Negative (Negative)
[2024-03-26 01:54] LABS: Hepatitis C Virus Antibody Negative (Negative)
[2024-03-26] MEDS: LACTATED RINGERS 1,000 ML 75 ML IV CONT (04:42)
[2024-03-26] MEDS: HYDROmorphone HCL INJ (*CRX) 1 MG/ML SYR IV PUSH ×2 (05:10→10:28)
[2024-03-26 05:56] LABS: Basophils Absolute Auto 0.1 K/mm3 (0.0-0.1); Basophils Percent Auto 0.3 % (0.2-1.2); Eosinophils Absolute Auto 0.5 K/mm3 (0-0.3); Eosinophils Percent Auto 3.2 % (0-4.4); Hematocrit 38.8 % (42.0-52.0); Hemoglobin 12.4 g/dL (14.0-18.0); Immature Granulocyte Absolute 0.11 K/mm3 (0.00-0.031); Immature Granulocyte Percent A 0.7 % (0-0.5); Lymphocytes Absolute Auto 1.33 K/mm3 (0.9-3.2); Lymphocytes Percent Auto 8.6 % (18.3-44.2); Mean Corpuscular Hemoglobin 28.2 pg (26-34); Mean Corpuscular Volume 88.2 fl (80-100); Mean Platelet Volume 11.6 fl (7.4-10.4); Monocytes Absolute Auto 1.7 K/mm3 (0.1-0.6); Monocytes Percent Auto 10.9 % (2.6-8.5); Neutrophils Absolute Auto 11.8 K/mm3 (1.3-6.7); Neutrophils Percent Auto 76.3 % (45.5-73.1); Platelet Count Result 216 k/mm3 (150-375); Red Cell Distribution Width 13.5 % (11.5-14.5); White Blood Count 15.4 K/mm3 (4.5-10.0)
[2024-03-26 06:09] LABS: Alanine Aminotransferase 36 U/L (6-50); Albumin Level 3.3 g/dL (3.5-5.1); Alkaline Phosphatase 88 U/L (38-126); Anion Gap 3 mmol/L (4-12); Aspartate Amino Transferase 33 U/L (17-59); Bilirubin,Total 1.4 mg/dL (0.2-1.3); Blood Urea Nitrogen 19 mg/dL (9-20); Calcium 8.4 mg/dL (8.4-10.2); Carbon Dioxide 31 mmol/L (22-30); Chloride 97 mmol/L (98-107); Estimated CRCL calculation 190 ml/min; Estimated Glomerular Filt Rate > 60; Glucose 160 mg/dL (65-110); Potassium 3.5 mmol/L (3.4-5.0); Sodium 131 mmol/L (137-145)
[2024-03-26 07:10] LABS: Glucose Point of Care 161 mg/dl (65-105)
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
[2024-03-26] MEDS: amLODIPine BESYLATE 5 MG TABLET PO (09:22)
[2024-03-26] MEDS: lisinopriL 10 MG TABLET PO (09:22)
[2024-03-26] MEDS: ASPIRIN 81 MG ENTERIC TABLET PO (09:22)
[2024-03-26] MEDS: carvediloL 25 MG TABLET PO ×2 (09:22→16:40)
[2024-03-26] MEDS: hydrALAZINE HCL 25 MG TABLET PO ×2 (09:22→12:38)
[2024-03-26] MEDS: LORATADINE 10 MG TABLET PO (09:23)
[2024-03-26] MEDS: oxyCODONE HCL (*CRX) 10 MG TAB SR 12HR PO (09:24)
[2024-03-26] MEDS: PANTOPRAZOLE SODIUM IV 40 MG VIAL IV PUSH ×2 (09:25→20:52)
[2024-03-26] MEDS: ENOXAPARIN 40 MG/0.4 ML SYRINGE SUB-Q (09:25)
[2024-03-26 12:22] LABS: Glucose Point of Care 237 mg/dl (65-105)
[2024-03-26] MEDS: INSULIN ASPART (*BKC) 100 UNITS/ML SUB-Q (12:36)
[2024-03-26] MEDS: MORPHINE SULFATE (*CRX) 4 MG/ML INJ 6 MG IV PUSH ×3 (12:41→20:52)
[2024-03-26] MEDS: FUROSEMIDE INJ 100 MG/10 ML VIAL 60 MG IV PUSH (12:43)
[2024-03-26 13:04] LABS: Add Urine Microscopic? YES; Appearance Urine Clear (Clear); Bacteria Urine None Seen /hpf; Bilirubin Urine 1+ (Negative); Blood Urine Negative (Negative); Color Urine Dark Yellow (Yellow); Glucose Urine UA 3+ mg/dL (Negative); Ketones Urine Trace mg/dL (Negative); Leukocyte Esterase Ur Negative LEU/UL (Negative); Nitrate Urine Negative (Negative); Non Pathogenic Casts 0-2; Protein Urine 2+ mg/dL (Negative); RBC Urine 0-2 /hpf (0-2); Specific Grav Ur 1.034 (1.001-1.035); Squamous Epithelial Cell Urine Occasional /hpf (Few); Urobilinogen Urine >=8.0 mg/dL (<2.0); WBC Urine 0-5 /hpf (0-3); pH Urine 6.5 (5.0-9.0)
[2024-03-26 17:18] LABS: Glucose Point of Care 183 mg/dl (65-105)
--- NOTE | 2024-03-26 18:37 | P.CONGI_ITS ---
Assessment and Plan Assessment and plan (1) Acute pancreatitis: Qualifiers: Acute pancreatitis complication: no infection or necrosis Pancreatitis type: idiopathic Qualified Code(s): K85.00 - Idiopathic acute pancreatitis without necrosis or infection Code(s): K85.90 - Acute pancreatitis without necrosis or infection, unspecified Status: Acute Assessment and Plan: The patient has a new onset of mild acute pancreatitis, but is experiencing persistent pain. Despite good prognostic indicators like normal BUN, hematocrit, and overall well-being, the underlying cause of the pancreatitis remains unclear. The patient presents with risk factors including morbid obesity and new-onset diabetes, but without obvious gallstones or alcohol abuse. To further investigate, a gallbladder sonogram will be ordered to assess for gallbladder sludge, as it is more sensitive than a CT scan for this purpose. Additionally, an MRCP is indicated to better visualize the pancreatic duct and identify any subtle abnormalities like IPMNs or nodules that might be missed on CT. GI Consult Note Consult date/time: 03/26/24 18:37 HPI: Daren Rome is a 38 year old male with past medical history of asthma, CHF, essential hypertension, coronary artery disease, TIA and prior HI due to hypertensive disease who presented to the ER from home via EMS due to chest pain. He then developed acute severe epigastric pain that radiated into his chest. He became acutely diaphoretic and nauseous. He reported that the symptoms or exactly like when he had had prior heart attack. His labs demonstrated a lipase greater than 25,[address] demonstrated acute interstitial pancreatitis. The patient denies any recent alcohol use. He denies a known history of diabetes but his glucose levels have reached the 300s. He has been having polydipsia, polyphagia and urinary frequency for the last 2-3 months. He smokes a pack of cigarettes per day and has smoked morbid cigarettes on a daily basis in the past. He has been hospitalized for acute pancreatitis rece iving fluids and analgesics. Today's CT scan showed interstitial pancreatitis, minimal ascites, but no masses or necrosis. Review of Systems Review of Systems: All systems reviewed & are unremarkable except as noted in HPI and below [facility] Past Medical History Medical History (Updated 03/26/24 @ 15:02 by Fanta Barillas, SURI) Asthma Coronary artery disease Hypertensive cardiomyopathy Hypertensive heart disease Kidney stones Morbid obesity with BMI of 40.0-44.9, adult Obstructive sleep apnea Patient never went and got a CPAP because he knew he could not afford it? TIA (transient ischemic attack) Tobacco abuse disorder Surgical History Surgical History (Updated 03/23/24 @ 06:22 by Kate Henley DO) History of cardiac catheterization Status post open reduction with internal fixation of fracture Left orbital fracture Family History Family History (Updated 03/23/24 @ 06:24 by Kate Henley DO) Mother Diabetes mellitus Social History Social History (Updated 03/23/24 @ 06:27 by Kate Henley DO) Social History: He is single. The patient moved here from [place] middle the year 2023. He is living with his mother. He has smoked 1-1/2 pack of cig arettes a day since he was 16. He served in [employer] for [email or web address] 6 years. He worked in [employer] after that but has been unemployed recently. He rarely drinks alcohol. He denies illicit substance use. Code status: Full code (patient states he would not want long-term intubation, tracheostomy or G-tube) Surrogate decision maker: Zahida (Mother) Smoking packs per day: 1 Smoking cigarettes per day: 20.0 Years smoked: 22 Smoking pack-years: 22.00 Smoking status: Heavy tobacco smoker Alcohol intake: current Drinks per week: 1 Substance use: never Do You Feel Safe in your Home?: Yes Lack of Transportation: No Lack of Food: Never True Current Housing: I Have Housing Concerned About Future Housing: No Difficulty Paying Gas/Electric Bills: No Difficulty Paying for Meds: YES Currently Unemployed: YES Education: Bachelor's Degree Difficulty w/ Childcare or Family Care: No 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: Yes ([facility]) Meds Home Medications and Allergies Home Medications Medication Instructions Recorded Confirmed Type aspirin 81 mg tablet,delayed 81 mg PO DAILY 03/23/24 03/23/24 History release (Adult Low Dose Aspirin) carvedilol 12.5 mg tablet 12.5 mg PO BID 03/23/24 03/23/24 History furosemide 40 mg tablet 40 mg PO DAILY 03/23/24 03/23/24 History lisinopril 10 mg tablet 10 mg PO DAILY 03/23/24 03/23/24 History loratadine 10 mg tablet (Claritin) 10 mg PO DAILY 03/23/24 03/23/24 History Allergies Allergy/AdvReac Type Severity Reaction Status Date / Time cat dander Allergy Itching Verified 03/23/24 02:29 RAGWEED Allergy Mild Itching Uncoded 03/23/24 02:29 Vital Signs Vital Signs - 24 hr 03/25/24 22:00 03/25/24 20:00 03/26/24 00:20 Temperature 97.7 F Pulse Rate 77 77 80 Respiratory Rate 18 18 20 Blood Pressure 144/64 H Pulse Oximetry 97 97 Oxygen Delivery Room Air Fraction of Inspired Oxygen 21 03/26/24 00:33 03/26/24 06:00 03/26/24 09:07 Temperature 98.2 F Pulse Rate 82 81 Respiratory Rate 20 18 Blood Pressure 140/79 Pulse Oximetry 95 96 Oxygen Delivery Room Air Fraction of Inspired Oxygen 21 03/26/24 09:07 03/26/24 09:18 03/26/24 09:22 Temperature Pulse Rate 85 86 88 Respiratory Rate 20 20 Blood Pressure Pulse Oximetry Oxygen Delivery Fraction of Inspired Oxygen 03/26/24 09:25 03/26/24 14:00 03/26/24 16:24 Temperature 97.9 F Pulse Rate 87 Respiratory Rate 20 17 Blood Pressure 119/77 Pulse Oximetry 96 95 95 Oxygen Delivery Room Air Room Air Fraction of Inspired Oxygen 21 03/26/24 16:24 03/26/24 16:40 03/26/24 16:38 Temperature Pulse Rate 85 80 82 Respiratory Rate 20 20 Blood Pressure Pulse Oximetry Oxygen Delivery Fraction of Inspired Oxygen Exam Narrative: General - Awake and alert. No acute distress Eyes - PERRLA, EOM intact, crusting and purulent drainage to left eye ENT - No thrush, No erythema Neck - No noticeable or palpable swelling Lymph Nodes - No lymphadenopathy Cardiovascular - RRR no m/r/g, no JVD Lungs: Clear to auscultation, No wheezing, use of accessory muscles, no crackles Skin - Skin warm and dry, no wounds or rashes Abdomen - Normal bowel sounds, abdomen soft, distended, lower abdominal tenderness. No RUQ tenderness Extremities - No edema, cyanosis or clubbing Musculoskeletal - 5/5 strength, normal range of motion, no swollen or erythematous joints. Neurological ? Alert and oriented x 3, CN 2-12 grossly intact. Psych: Normal mood and affect Const: Other: No acute distress, lying in bed with head of bed at 60? go appears stated age, morbidly obese HENMT: Other: Mucous membranes are tacky, no oral pharyngeal erythema, crowded posterior oropharynx, fair dentition Eyes: Other: Pupils are equal and reactive, extraocular movements intact although it appears if the patient's right eye may chronically be slightly deviated inward but patient does have history of prior orbital surgery which may be distorting the appearance of orbits Neck: Other: Large neck circumference, possible thyromegaly, no JVD Resp: Other: Tachypneic, diffuse wheezing bilateral upper and lower lung zones, no accessory muscle use Cardio: Other: Tachycardic, 2+ bilateral radial pedal pulses, no murmur, no JVD GI: Other: Diffuse abdominal tenderness but worse in the epigastric and right upper q uadrant region, distended, normoactive bowel sounds : Other: 1 L of urine sitting in the urinal at be dside Skin: Other: No jaundice, no pallor, extensive struck nugent across the abdominal wall Neuro: Other: Alert oriented x4, speech is clear, no facial asymmetry Extrem: Other: 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, no clubbing , cyanosis or edema Psych: Other: Appropriate mood and affect, cooperative, Results Labs 03/26/24 05:18 03/26/24 05:18 Labs: Short CBC 03/26/24 Range/Units 05:18 WBC 15.4 H (4.5-10.0) K/mm3 Hgb 12.4 L (14.0-18.0) g/dL Hct 38.8 L (42.0-52.0) % Plt Count 216 (150-375) k/mm3 BMP 03/26/24 05:18 Sodium 131 L Potassium 3.5 Chloride 97 L Carbon Dioxide 31 H BUN 19 Creatinine 0.80 Glucose 160 H Calcium 8.4 Liver Function 03/26/24 Range/Units 05:18 Total Bilirubin 1.4 H (0.2-1.3) mg/dL Direct Bilirubin 0.0 (0-0.3) mg/dL AST 33 (17-59) U/L ALT 36 (6-50) U/L Alkaline Phosphatase 88 (38-126) U/L Albumin 3.3 L (3.5-5.1) g/dL Urine 03/26/24 Range/Units 12:46 Urine Color Dark yellow (Yellow) Urine Appearance Clear (Clear) Urine pH 6.5 (5.0-9.0) Ur Specific [place] 1.034 (1.001-1.035) Urine Protein 2+ H (Negative) mg/dL Urine Glucose (UA) 3+ H (Negative) mg/dL
[2024-03-26] MEDS: SENNA/DOCUSATE SODIUM TABLET 1 TAB PO (20:52)
--- NOTE | 2024-03-26 21:03 | PC.NURSE ---
I brought Pt's scheduled medications into room, including scheduled Oxycodone. Pt. C/O pain rating '14/10' on '0-10 pain scale' and requesting Morphine. Informed Pt. that I have his scheduled Oxycodone for which Pt. states 'I want the pain shot not a pill as the pill does not work. I have told several people, several times this. Informed Pt. that I am willing to get the Morphine as it has been 4 hours since his last dose but want to know if he wants the Oxycodone also or not. Pt. REFUSED Oxycodone at this time stating that it does not work and would only like the Morphine. Documented Pt. refused Oxycodone on JUN and Morphine given.
[2024-03-27] VITALS (12 sets, daily range): BP systolic 114–146; BP diastolic 69–79; PULSE 74–95; RESP 18–24; TEMP 36.4–37.4; O2SAT 95–100
[2024-03-27 00:24] LABS: Glucose Point of Care 175 mg/dl (65-105)
[2024-03-27] MEDS: MORPHINE SULFATE (*CRX) 4 MG/ML INJ 6 MG IV PUSH ×6 (00:47→23:40)
[2024-03-27 05:27] LABS: Glucose Point of Care 161 mg/dl (65-105)
[2024-03-27 06:12] LABS: Basophils Absolute Auto 0.1 K/mm3 (0.0-0.1); Basophils Percent Auto 0.5 % (0.2-1.2); Eosinophils Absolute Auto 0.4 K/mm3 (0-0.3); Eosinophils Percent Auto 3.2 % (0-4.4); Hematocrit 38.6 % (42.0-52.0); Hemoglobin 12.5 g/dL (14.0-18.0); Immature Granulocyte Absolute 0.09 K/mm3 (0.00-0.031); Immature Granulocyte Percent A 0.7 % (0-0.5); Lymphocytes Absolute Auto 0.91 K/mm3 (0.9-3.2); Lymphocytes Percent Auto 6.9 % (18.3-44.2); Mean Corpuscular HGB Conc 32.4 g/dl (32-36); Mean Corpuscular Hemoglobin 27.8 pg (26-34); Mean Platelet Volume 11.2 fl (7.4-10.4); Monocytes Absolute Auto 1.7 K/mm3 (0.1-0.6); Monocytes Percent Auto 12.4 % (2.6-8.5); Neutrophils Absolute Auto 10.1 K/mm3 (1.3-6.7); Neutrophils Percent Auto 76.3 % (45.5-73.1); Platelet Count Result 234 k/mm3 (150-375); Red Blood Count 4.49 M/mm3 (4.6-6.20); Red Cell Distribution Width 13.4 % (11.5-14.5); White Blood Count 13.3 K/mm3 (4.5-10.0)
[2024-03-27 06:30] LABS: Anion Gap 5 mmol/L (4-12); Blood Urea Nitrogen 13 mg/dL (9-20); Calcium 8.4 mg/dL (8.4-10.2); Carbon Dioxide 30 mmol/L (22-30); Chloride 95 mmol/L (98-107); Estimated CRCL calculation 215 ml/min; Estimated Glomerular Filt Rate > 60; Glucose 154 mg/dL (65-110); Sodium 130 mmol/L (137-145)
[2024-03-27] MEDS: IPRATROPIUM BR 0.02% INH SOLN 0.5 MG/2.5 ML VIAL INHALATION ×2 (08:17→16:19)
[2024-03-27] MEDS: LEVALBUTEROL NEB 1.25 MG/3 ML INHALATION ×2 (08:17→16:19)
[2024-03-27] MEDS: PANTOPRAZOLE SODIUM IV 40 MG VIAL IV PUSH ×2 (09:32→20:27)
[2024-03-27] MEDS: carvediloL 25 MG TABLET PO ×2 (09:33→16:22)
[2024-03-27] MEDS: oxyCODONE HCL (*CRX) 10 MG TAB SR 12HR PO (09:33)
[2024-03-27] MEDS: LORATADINE 10 MG TABLET PO (09:33)
[2024-03-27] MEDS: lisinopriL 10 MG TABLET PO (09:33)
[2024-03-27] MEDS: ASPIRIN 81 MG ENTERIC TABLET PO (09:33)
[2024-03-27] MEDS: amLODIPine BESYLATE 5 MG TABLET PO (09:33)
[2024-03-27] MEDS: ENOXAPARIN 40 MG/0.4 ML SYRINGE SUB-Q (09:33)
[2024-03-27] MEDS: hydrALAZINE HCL 25 MG TABLET PO (09:34)
[2024-03-27] MEDS: POTASSIUM CHLORIDE INJ 40 MEQ in SODIUM CHLORIDE 0.9% IV 500 ML 130 MEQ IVPB (09:34)
[2024-03-27 09:39] LABS: Magnesium 2.3 mg/dL (1.6-2.3)
[2024-03-27] MEDS: FUROSEMIDE 40 MG TABLET PO (11:22)
[2024-03-27 11:55] LABS: Glucose Point of Care 153 mg/dl (65-105)
--- NOTE | 2024-03-27 12:46 | P.PNIM_ITS ---
Progress Note: A&P Assessment and Plan (1) Acute pancreatitis: Qualifiers: Acute pancreatitis complication: no infection or necrosis Pancreatitis type: idiopathic Qualified Code(s): K85.00 - Idiopathic acute pancreatitis without necrosis or infection Code(s): K85.90 - Acute pancreatitis without necrosis or infection, unspecified Status: Acute Assessment and Plan: MRCP and Ultrasound show interstitial pancreatitis, prior imaging shows pleural effusion and ascites noted on MRCP. No obstruction noted, LFTs improving. Start Diabetic diet as tolerated. (2) Uncontrolled hypertension: Code(s): I10 - Essential (primary) hypertension Status: Acute Assessment and Plan: Home doses Coreg 12.5 BID, Lisinopril 10, furosemide 40mg. Off coreg and Lasix since January, blood pressure also elevated in the setting of pain --Continue hydralazine 10 mg IV q.4 hours p.r.n. for systolic blood pressures greater than 180 --Increased Coreg 12.5<25, Lisinopril 10<20mg--->10mg, started amlodipine 5mg, Started hydralazine 25 QID (hold parameters for SBP <140) 03/27: BP stable and improved (3) Type 2 diabetes mellitus: Qualifiers: Diabetes mellitus chcf insulin use: without chcf use Diabetes mellitus complication status: with hyperglycemia Qualified Code(s): E11.65 - Type 2 diabetes mellitus with hyperglycemia Code(s): E11.9 - Type 2 diabetes mellitus without complications Status: Acute Assessment and Plan: A1c came back greater than 10. would benefit from diet lifestyle modifications Will place patient on moderate sliding scale insulin with Accu-Cheks ACHS and hypoglycemia protocol. Patient has a working knowledge of how to inject insulin from helping family previously but needs additional education primary special educator to see (4) Asthma: Qualifiers: Asthma severity: mild Asthma persistence: intermittent Asthma complication type: with acute exacerbation Qualified Code(s): J45.21 - Mild intermittent asthma with (acute) exacerbation Code(s): J45.909 - Unspecified asthma, uncomplicated Status: Acute Assessment and Plan: Nebs changed to PRN (5) Tobacco abuse disorder: Code(s): Z72.0 - Tobacco use Status: Acute Assessment and Plan: Smoking cessation education has been provided. Patient is not interested in quitting smoking. Nicotine patch was offered but patient refused. (6) Acute pain: Code(s): R52 - Pain, unspecified Status: Acute Assessment and Plan: Schedule oxyCR 10mg q12 x3 days patient states that he wants to go to back to the morphine as he feels it works better than the Dilaudid (7) Conjunctivitis: Code(s): H10.9 - Unspecified conjunctivitis Status: Acute Assessment and Plan: Improvement Has significant drainage and crusting to left eye that started today Erythromycin ointment left eye QID x5 days Follow clinically (8) High bilirubin: Code(s): R17 - Unspecified jaundice Status: Acute Assessment and Plan: LFT/Bilirubin improved (9) Leukocytosis: Code(s): D72.829 - Elevated white blood cell count, unspecified Status: Acute Assessment and Plan: UA unremarkable chest x-ray with possible pneumonia no signs of soft tissue infection WBC 13.3, downtrending (10) CHF (congestive heart failure): Code(s): I50.9 - Heart failure, unspecified Status: Acute Assessment and Plan: Pleural effusion, on room air Resume home Lasix Consider Echo if any worsening (11) Pneumonia: Code(s): J18.9 - Pneumonia, unspecified organism Status: Acute Assessment and Plan: pneumonia versus atelectasis seen on chest x-ray, patient has leukocytosis On Rocephin/Azithromycin, WBC downtrending Time Spent With Patient Time with patient: 25 - 35 minutes Subjective Date/time seen: 03/27/24 12:46 Interval history: Patient underwent MRCP and Abdominal Ultrasound today, both indicating interstitial pancreatitis with pleural effusion and small volume ascites. Diabetic diet started. Patient still having significant pain control issues. IV fluids stopped. Potassium low, sodium low. Restart diet and replace potassium oral instead of IV due to third spacing fluid. Review of Systems Review of Systems: 12 systems were reviewed with pertinent positives and negatives per HPI. Except as documented in the HPI, all other systems were reviewed and are negative. All systems reviewed & are unremarkable except as noted in HPI and below Exam Narrative: General - Awake and alert. No acute distress Eyes - PERRLA, EOM intact ENT - No thrush, No erythema Neck - No noticeable or palpable swelling Lymph Nodes - No lymphadenopathy Cardiovascular - RRR no m/r/g, no JVD Lungs: Clear to auscultation, No wheezing, use of accessory muscles, no crackles Skin - Skin warm and dry, no wounds or rashes Abdomen - Normal bowel sounds, abdomen soft, distended, generalized tenderness to palpation Extremities - No edema, cyanosis or clubbing Musculoskeletal - 5/5 strength, normal range of motion, no swollen or erythematous joints. Neurological ? Alert and oriented x 3, CN 2-12 grossly intact. Psych: Normal mood and affect Objective Data Vital Signs Vital Signs: Vital Signs - 24 hr 03/26/24 14:00 03/26/24 16:24 03/26/24 16:24 Temperature 36.6 C Pulse Rate 87 85 Respiratory Rate 17 20 Blood Pressure 119/77 Pulse Oximetry 95 95 Oxygen Delivery Room Air Fraction of Inspired Oxygen 21 03/26/24 16:40 03/26/24 16:38 03/26/24 19:58 Temperature 36.9 C Pulse Rate 80 82 85 Respiratory Rate 20 20 Blood Pressure 117/68 Pulse Oximetry 98 Oxygen Delivery Fraction of Inspired Oxygen 03/26/24 20:00 03/26/24 23:58 03/26/24 23:58 Temperature Pulse Rate 84 Respiratory Rate 24 H Blood Pressure Pulse Oximetry 97 Oxygen Delivery Room Air Room Air Fraction of Inspired Oxygen 03/27/24 00:07 03/27/24 03:49 03/27/24 08:17 Temperature 37.4 C Pulse Rate 89 84 Respiratory Rate 24 H 20 20 Blood Pressure 146/79 H Pulse Oximetry 97 97 Oxygen Delivery Room Air Fraction of Inspired Oxygen 03/27/24 08:19 03/27/24 08:19 03/27/24 08:29 Temperature Pulse Rate 90 95 Respiratory Rate 20 20 Blood Pressure Pulse Oximetry 95 Oxygen Delivery Room Air Fraction of Inspired Oxygen 03/27/24 09:33 03/27/24 12:44 Temperature Pulse Rate 95 85 Respiratory Rate 20 Blood Pressure 120/69 Pulse Oximetry 95 Oxygen Delivery Fraction of Inspired Oxygen Intake/Output Intake/Output: Intake & Output 03/24/24 03/25/24 03/26/24 03/27/24 23:59 23:59 23:59 23:59 Intake Total 1100 2953.8 3738.3 164.7 Balance 1100 2953.8 3738.3 164.7 Meds/Results Medications: Active Medications Generic Name Dose Route Start Last Admin Trade Name Freq PRN Reason Stop Dose Admin Hydrocodone Bitart/Acetaminophen 1 tab 03/24/24 18:53 12/02/24 14:42 Hydrocodone/Acetaminophen (*Crx) 10-325 Mg Tablet PO 1 tab Q4H PRN Administration Pain Rated 5 or Less Amlodipine Besylate 5 mg 03/23/24 18:08 03/27/24 09:33 Amlodipine Besylate 5 Mg Tablet PO 5 mg DAILY VIKY Administration Aspirin 81 mg 03/23/24 09:00 03/27/24 09:33 Aspirin 81 Mg Enteric Tablet PO 81 mg DAILY VIKY Administration Carvedilol 25 mg 03/24/24 08:00 03/27/24 09:33 Carvedilol 25 Mg Tablet PO 25 mg BIDWM VIKY Administration Dextrose 12.5 gm 03/23/24 05:48 Dextrose 50% 25 Gm/50 Ml Syringe IV PUSH PRN PRN Hypoglycemia Protocol Enoxaparin Sodium 40 mg 03/23/24 09:00 03/27/24 09:33 Enoxaparin 40 Mg/0.4 Ml Syringe SUB-Q 40 mg DAILY VIKY Administration Furosemide 40 mg 03/27/24 09:00 03/27/24 11:22 Furosemide 40 Mg Tablet PO 40 mg DAILY VIKY Administration Glucagon 1 mg 03/23/24 05:48 Glucagon For Inj 1 Mg Vial IM PRN PRN Hypoglycemia Protocol Glucose 15 gm 03/23/24 05:48 Glucose Oral Gel 15 Gm Of Glucse In 37.5 Gm Tube PO PRN PRN Hypoglycemia Protocol Hydralazine HCl 25 mg 03/24/24 09:00 03/27/24 09:34 Hydralazine Hcl 25 Mg Tablet PO 25 mg QID VIKY Administration Hydralazine HCl 10 mg 03/24/24 07:23 Hydralazine Hcl 20 Mg/Ml Vial IV PUSH Q4H PRN SBP>200, dbp>110 Dextrose 1,000 mls @ 100 mls/hr 03/23/24 05:48 Dextrose 5% 1,000 Ml IVPB PRN PRN Hypoglycemia Protocol Ceftriaxone Sodium 1 gm in 50 mls @ 100 mls/hr 03/26/24 16:00 03/26/24 16:15 Rocephin 1 Gm/Ns 50 Ml IVPB Infused Q24H VIKY Infusion Azithromycin 500 mg in 250 mls @ 250 mls/hr 03/27/24 17:00 Zithromax IVPB Q24H VIKY Insulin Aspart 3 - 6 units 03/23/24 06:00 03/27/24 12:00 Insulin Aspart (*Bkc) 100 Units/Ml SUB-Q Not Given Q6HR [facility] Protocol Ipratropium [place] 0.5 mg 03/25/24 00:00 03/27/24 08:17 Ipratropium Br 0.02% Inh Soln 0.5 Mg/2.5 Ml Vial INHALATION 0.5 mg Q8HRT VIKY Administration Levalbuterol HCl 1.25 mg 03/24/24 18:45 03/27/24 08:17 Levalbuterol Neb 1.25 Mg/3 Ml INHALATION 1.25 mg Q8HRT VIKY Administration Lisinopril 10 mg 03/25/24 09:00 03/27/24 09:33 Lisinopril 10 Mg Tablet PO 10 mg QAM [facility] Administration Loratadine 10 mg 03/23/24 09:00 03/27/24 09:33 Loratadine 10 Mg Tablet PO 10 mg DAILY [facility] Administration Metoprolol Tartrate 5 mg 03/23/24 03:00 03/23/24 03:21 Metoprolol Tartrate Inj 5 Mg/5 Ml Vial IV PUSH 5 mg Q6H VIKY Administration Morphine Sulfate 6 mg 03/26/24 12:22 03/27/24 09:18 Morphine Sulfate (*Crx) 4 Mg/Ml Inj IV PUSH 6 mg Q4H PRN Administration Pain Rated 7-10 Nitroglycerin 1 patch 03/23/24 18:04 03/24/24 09:37 Nitroglycerin 0.2 Mg/Hr Patch [facility] Pantoprazole Sodium 40 mg 03/23/24 09:00 03/27/24 09:32 Pantoprazole Sodium Iv 40 Mg Vial IV PUSH 40 mg Q12HR VIKY Administration Senna/Docusate Sodium 1 tab 03/23/24 21:00 03/26/24 20:52 Senna/Docusate Sodium Tablet PO 1 tab HS VIKY Administration Radiology Results: ITS Impressions Chest X-Ray 03/26/24 09:19 IMPRESSION: 1. New opacities in the bilateral lower lung zones which could represent atelectasis, pneumonia or combination thereof. Abdomen/Pelvis CT 03/26/24 16:14 IMPRESSION: 1. Acute interstitial pancreatitis, stable from 03/22/2024. 2. Worsened small volume of ascites. 3. Worsened small pleural effusions. MRCP 03/27/24 11:06 IMPRESSION: 1. Radiographically uncomplicated acute interstitial pancreatitis. No pancreatic ductal dilation, IPMN or other suspicious pancreatic lesions. 2. Bibasilar lung disease which could represent atelectasis or pneumonia with tiny bilateral pleural effusions. 3. Hepatomegaly with diffuse hepatic steatosis. 4. Small amount of ascites scattered throughout the abdomen and pelvis likely related to the pancreatitis. Abdomen Ultrasound 03/27/24 11:15 IMPRESSION: 1. Normal gallbladder. 2. Acute pancreatitis. 3. Diffuse hepatic steatosis. Labs Labs: Laboratory Results - last 24 hr 03/26/24 03/26/24 03/27/24 12:46 17:06 00:19 WBC RBC Hgb Hct MCV MCH MCHC RDW Plt Count MPV Immature Gran % (Auto) Neut % (Auto) Lymph % (Auto) [place] % (Auto) Eos % (Auto) Baso % (Auto) Lymph # (Auto) [place] # (Auto) Eos # (Auto) Baso # (Auto) Abs Immat Gran (auto) Absolute Neuts (auto) Absolute Nucleated RBC Nucleated RBC % Sodium Potassium Chloride Carbon Dioxide Anion Gap BUN Creatinine Estim Creat Clear Calc Estimated GFR Glucose POC Capillary Glucose 183 H 175 H Calcium Magnesium Urine Color Dark yellow Urine Appearance Clear Urine pH 6.5 Ur Specific [place] 1.034 Urine Protein 2+ H Urine Glucose (UA) 3+ H Urine Ketones Trace H Ur Blood (Man) Negative Urine Nitrate Negative Urine Bilirubin 1+ H Urine Urobilinogen >=8.0 H Ur Leukocyte Esterase Negative Urine RBC 0-2 Urine WBC 0-5 Ur Squamous Epith Cells Occasional Urine Bacteria None seen Urine Casts 0-2 03/27/24 03/27/24 03/27/24 03:56 05:42 11:53 WBC 13.3 H RBC 4.49 L Hgb 12.5 L Hct 38.6 L MCV 86.0 MCH 27.8 MCHC 32.4 RDW 13.4 Plt Count 234 MPV 11.2 H Immature Gran % (Auto) 0.7 H Neut % (Auto) 76.3 H Lymph % (Auto) 6.9 L [place] % (Auto) 12.4 H Eos % (Auto) 3.2 Baso % (Auto) 0.5 Lymph # (Auto) 0.91 [place] # (Auto) 1.7 H Eos # (Auto) 0.4 H Baso # (Auto) 0.1 Abs Immat Gran (auto) 0.09 H Absolute Neuts (auto) 10.1 H Absolute Nucleated RBC 0.000 Nucleated RBC % 0.0 Sodium 130 L Potassium 3.0 L Chloride 95 L Carbon Dioxide 30 Anion Gap 5 BUN 13 D Creatinine 0.70 Estim Creat Clear Calc 215 Estimated GFR > 60 Glucose 154 H POC Capillary Glucose 161 H 153 H Calcium 8.4 Magnesium 2.3 Urine Color Urine Appearance Urine pH Ur Specific [place] Urine Protein Urine Glucose (UA) Urine Ketones Ur Blood (Man) Urine Nitrate Urine Bilirubin Urine Urobilinogen Ur Leukocyte Esterase Urine RBC Urine WBC Ur Squamous Epith Cells Urine Bacteria Urine Casts Pulse Oximetry SpO2 results: 95-97% on room air Attestation: I personally reviewed and interpreted this pulse oximetry as follows: Interpretation: No need for supplemental oxygenation at this time Quality VTE Prophylaxis VTE prophylaxis: pharmacologic ordered (Lovenox 40 mg subQ daily.) Hospitalist MIPS Advance Care Plan I have confirmed that the patient's Advanced Care Plan is present, code status is documented, or surrogate decision maker is listed in patient medical record.: Yes Medication Reconciliation I have utilized all available resources to obtain, update and review the patients current medications (includes all prescriptions, OTC, herbals, cannabis, and nutritional supplements).: Yes
[2024-03-27] MEDS: POTASSIUM CHLORIDE 20 MEQ ER TABLET 60 MEQ PO (12:47)
[2024-03-27] MEDS: AZITHROMYCIN 500 MG/NS 250 ML 500 MG/250 ML BAG 250 MG IVPB (16:22)
[2024-03-27 17:28] LABS: Glucose Point of Care 188 mg/dl (65-105)
--- NOTE | 2024-03-27 17:38 | P.PNGI_ITS ---
Progress Note: A&P Assessment and Plan (1) Acute pancreatitis: Qualifiers: Acute pancreatitis complication: no infection or necrosis Pancreatitis type: idiopathic Qualified Code(s): K85.00 - Idiopathic acute pancreatitis without necrosis or infection Code(s): K85.90 - Acute pancreatitis without necrosis or infection, unspecified Status: Acute Assessment and Plan: patient with acute pancreatitis of unknown etiology. Ultrasound this morning ruled out gallstones or sludge. MRCP showed a normal pancreatic duct, ruling out IPMN or solid masses. Even though triglycerides might be normal in the setting of acute pancreatitis, will order a baseline level for tomorrow. In general, this is considered a mild interstitial pancreatitis and patient is already tolerating food. The only issue pending is to manage analgesia, ideally deescalating to non narcotic alternatives. Time Spent With Patient Time with patient: less than 15 minutes Subjective Date/time seen: 03/27/24 17:38 Interval history: Patient continues to have abdominal pain, requiring scheduled dose of morphine Objective Data Vital Signs Vital Signs: Vital Signs - 24 hr 03/26/24 19:58 03/26/24 20:00 03/26/24 23:58 Temperature 98.4 F Pulse Rate 85 Respiratory Rate 20 Blood Pressure 117/68 Pulse Oximetry 98 97 Oxygen Delivery Room Air Room Air 03/26/24 23:58 03/27/24 00:07 03/27/24 03:49 Temperature 99.3 F Pulse Rate 84 89 84 Respiratory Rate 24 H 24 H 20 Blood Pressure 146/79 H Pulse Oximetry 97 Oxygen Delivery 03/27/24 08:17 03/27/24 08:19 03/27/24 08:19 Temperature Pulse Rate 90 Respiratory Rate 20 20 Blood Pressure Pulse Oximetry 97 95 Oxygen Delivery Room Air Room Air 03/27/24 08:29 03/27/24 09:33 03/27/24 12:44 Temperature Pulse Rate 95 95 85 Respiratory Rate 20 20 Blood Pressure 120/69 Pulse Oximetry 95 Oxygen Delivery 03/27/24 14:00 03/27/24 16:22 03/27/24 16:20 Temperature 98.1 F Pulse Rate 91 80 82 Respiratory Rate 18 20 Blood Pressure 133/69 Pulse Oximetry 96 Oxygen Delivery 03/27/24 16:30 Temperature Pulse Rate 74 Respiratory Rate 20 Blood Pressure Pulse Oximetry Oxygen Delivery Intake/Output Intake/Output: Intake & Output 03/24/24 03/25/24 03/26/24 03/27/24 23:59 23:59 23:59 23:59 Intake Total 1100 2953.8 3738.3 694.7 Balance 1100 2953.8 3738.3 694.7 Meds/Results Medications: Active Medications Generic Name Dose Route Start Last Admin Trade Name Freq PRN Reason Stop Dose Admin Hydrocodone Bitart/Acetaminophen 1 tab 03/24/24 18:53 03/26/24 14:42 Hydrocodone/Acetaminophen (*Crx) 10-325 Mg Tablet PO 1 tab Q4H PRN Administration Pain Rated 5 or Less Amlodipine Besylate 5 mg 03/23/24 18:08 03/27/24 09:33 Amlodipine Besylate 5 Mg Tablet PO 5 mg DAILY VIKY Administration Aspirin 81 mg 03/23/24 09:00 03/27/24 09:33 Aspirin 81 Mg Enteric Tablet PO 81 mg DAILY VIKY Administration Carvedilol 25 mg 03/24/24 08:00 03/27/24 16:22 Carvedilol 25 Mg Tablet PO 25 mg BIDWM VIKY Administration Dextrose 12.5 gm 03/23/24 05:48 Dextrose 50% 25 Gm/50 Ml Syringe IV PUSH PRN PRN Hypoglycemia Protocol Enoxaparin Sodium 40 mg 03/23/24 09:00 03/27/24 09:33 Enoxaparin 40 Mg/0.4 Ml Syringe SUB-Q 40 mg DAILY VIKY Administration Furosemide 40 mg 03/27/24 09:00 03/27/24 11:22 Furosemide 40 Mg Tablet PO 40 mg DAILY VIKY Administration Glucagon 1 mg 03/23/24 05:48 Glucagon For Inj 1 Mg Vial IM PRN PRN Hypoglycemia Protocol Glucose 15 gm 03/23/24 05:48 Glucose Oral Gel 15 Gm Of Glucse In 37.5 Gm Tube PO PRN PRN Hypoglycemia Protocol Hydralazine HCl 25 mg 03/24/24 09:00 03/27/24 16:24 Hydralazine Hcl 25 Mg Tablet PO Not Given QID VIKY Hydralazine HCl 10 mg 03/24/24 07:23 Hydralazine Hcl 20 Mg/Ml Vial IV PUSH Q4H PRN SBP>200, dbp>110 Dextrose 1,000 mls @ 100 mls/hr 03/23/24 05:48 Dextrose 5% 1,000 Ml IVPB PRN PRN Hypoglycemia Protocol Ceftriaxone Sodium 1 gm in 50 mls @ 100 mls/hr 03/26/24 16:00 03/27/24 15:51 Rocephin 1 Gm/Ns 50 Ml IVPB Infused Q24H VIKY Infusion Azithromycin 500 mg in 250 mls @ 250 mls/hr 03/27/24 17:00 03/27/24 16:22 Zithromax IVPB 250 mls/hr Q24H VIKY Administration Insulin Aspart 3 - 6 units 03/23/24 06:00 03/27/24 17:31 Insulin Aspart (*Bkc) 100 Units/Ml SUB-Q Not Given Q6HR [facility] Protocol Ipratropium [place] 0.5 mg 03/27/24 16:41 Ipratropium Br 0.02% Inh Soln 0.5 Mg/2.5 Ml Vial INHALATION Q6HRT PRN wheezing/Shortness of breath Levalbuterol HCl 1.25 mg 03/27/24 16:41 Levalbuterol Neb 1.25 Mg/3 Ml INHALATION Q6HRT PRN wheezing/Shortness of breath Lisinopril 10 mg 03/25/24 09:00 03/27/24 09:33 Lisinopril 10 Mg Tablet PO 10 mg QAM VIKY Administration Loratadine 10 mg 03/23/24 09:00 03/27/24 09:33 Loratadine 10 Mg Tablet PO 10 mg DAILY VIKY Administration Morphine Sulfate 6 mg 03/26/24 12:22 03/27/24 17:30 Morphine Sulfate (*Crx) 4 Mg/Ml Inj IV PUSH 6 mg Q4H PRN Administration Pain Rated 7-10 Pantoprazole Sodium 40 mg 03/23/24 09:00 03/27/24 09:32 Pantoprazole Sodium Iv 40 Mg Vial IV PUSH 40 mg Q12HR VIKY Administration Senna/Docusate Sodium 1 tab 03/23/24 21:00 03/26/24 20:52 Senna/Docusate Sodium Tablet PO 1 tab HS VIKY Administration Radiology Results: ITS Impressions Chest X-Ray 03/26/24 09:19 IMPRESSION: 1. New opacities in the bilateral lower lung zones which could represent atelectasis, pneumonia or combination thereof. Abdomen/Pelvis CT 03/26/24 16:14 IMPRESSION: 1. Acute interstitial pancreatitis, stable from 03/22/2024. 2. Worsened small volume of ascites. 3. Worsened small pleural effusions. MRCP 03/27/24 11:06 IMPRESSION: 1. Radiographically uncomplicated acute interstitial pancreatitis. No pancreatic ductal dilation, IPMN or other suspicious pancreatic lesions. 2. Bibasilar lung disease which could represent atelectasis or pneumonia with tiny bilateral pleural effusions. 3. Hepatomegaly with diffuse hepatic steatosis. 4. Small amount of ascites scattered throughout the abdomen and pelvis likely related to the pancreatitis. Abdomen Ultrasound 03/27/24 11:15 IMPRESSION: 1. Normal gallbladder. 2. Acute pancreatitis. 3. Diffuse hepatic steatosis. Labs Labs: Laboratory Results - last 24 hr 03/27/24 03/27/24 03/27/24 00:19 03:56 05:42 WBC 13.3 H RBC 4.49 L Hgb 12.5 L Hct 38.6 L MCV 86.0 MCH 27.8 MCHC 32.4 RDW 13.4 Plt Count 234 MPV 11.2 H Immature Gran % (Auto) 0.7 H Neut % (Auto) 76.3 H Lymph % (Auto) 6.9 L [place] % (Auto) 12.4 H Eos % (Auto) 3.2 Baso % (Auto) 0.5 Lymph # (Auto) 0.91 [place] # (Auto) 1.7 H Eos # (Auto) 0.4 H Baso # (Auto) 0.1 Abs Immat Gran (auto) 0.09 H Absolute Neuts (auto) 10.1 H Absolute Nucleated RBC 0.000 Nucleated RBC % 0.0 Sodium 130 L Potassium 3.0 L Chloride 95 L Carbon Dioxide 30 Anion Gap 5 BUN 13 D Creatinine 0.70 Estim Creat Clear Calc 215 Estimated GFR > 60 Glucose 154 H POC Capillary Glucose 175 H 161 H Calcium 8.4 Magnesium 2.3 03/27/24 03/27/24 11:53 17:24 WBC RBC Hgb Hct MCV MCH MCHC RDW Plt Count MPV Immature Gran % (Auto) Neut % (Auto) Lymph % (Auto) [place] % (Auto) Eos % (Auto) Baso % (Auto) Lymph # (Auto) [place] # (Auto) Eos # (Auto) Baso # (Auto) Abs Immat Gran (auto) Absolute Neuts (auto) Absolute Nucleated RBC Nucleated RBC % Sodium Potassium Chloride Carbon Dioxide Anion Gap BUN Creatinine Estim Creat Clear Calc Estimated GFR Glucose POC Capillary Glucose 153 H 188 H Calcium Magnesium
[2024-03-27] MEDS: SENNA/DOCUSATE SODIUM TABLET 1 TAB PO (20:22)
[2024-03-27 20:52] LABS: Cholesterol 130 mg/dL (0-200); HDL Direct 19 mg/dL; Triglycerides 144 mg/dL (<150)
[2024-03-27 21:03] LABS: LDL Cholesterol Direct 76 mg/dL
[2024-03-27 23:37] LABS: Glucose Point of Care 159 mg/dl (65-105)
[2024-03-28] MEDS: HYDROcodone/acetaminophen (*CRX) 10-325 MG TABLET 1 TAB PO ×5 (01:32→17:09)
[2024-03-28] MEDS: MORPHINE SULFATE (*CRX) 4 MG/ML INJ 6 MG IV PUSH (03:44)
[2024-03-28 05:33] LABS: Glucose Point of Care 190 mg/dl (65-105)
[2024-03-28 05:34] VITALS: BP 143/75; PULSE 80; RESP 17; TEMP 36.6; O2SAT 96
[2024-03-28 06:04] LABS: Basophils Absolute Auto 0.1 K/mm3 (0.0-0.1); Basophils Percent Auto 0.6 % (0.2-1.2); Eosinophils Absolute Auto 0.4 K/mm3 (0-0.3); Eosinophils Percent Auto 3.1 % (0-4.4); Hemoglobin 12.1 g/dL (14.0-18.0); Immature Granulocyte Absolute 0.16 K/mm3 (0.00-0.031); Immature Granulocyte Percent A 1.2 % (0-0.5); Lymphocytes Absolute Auto 1.09 K/mm3 (0.9-3.2); Lymphocytes Percent Auto 7.8 % (18.3-44.2); Mean Corpuscular HGB Conc 31.8 g/dl (32-36); Mean Corpuscular Hemoglobin 28.1 pg (26-34); Mean Corpuscular Volume 88.4 fl (80-100); Mean Platelet Volume 11.2 fl (7.4-10.4); Monocytes Absolute Auto 1.4 K/mm3 (0.1-0.6); Neutrophils Absolute Auto 10.8 K/mm3 (1.3-6.7); Neutrophils Percent Auto 77.3 % (45.5-73.1); Platelet Count Result 276 k/mm3 (150-375); Red Cell Distribution Width 13.4 % (11.5-14.5); White Blood Count 13.9 K/mm3 (4.5-10.0)
[2024-03-28 06:16] LABS: Anion Gap 2 mmol/L (4-12); Blood Urea Nitrogen 14 mg/dL (9-20); Calcium 8.7 mg/dL (8.4-10.2); Carbon Dioxide 33 mmol/L (22-30); Chloride 96 mmol/L (98-107); Estimated CRCL calculation 215 ml/min; Estimated Glomerular Filt Rate > 60; Glucose 184 mg/dL (65-110); Lipase 45 U/L (23-300); Potassium 3.3 mmol/L (3.4-5.0); Sodium 131 mmol/L (137-145)
[2024-03-28 06:24] LABS: NT Pro B Type Natriuretic Pept 261 pg/mL (19.9-100)
[2024-03-28 08:51] LABS: Glucose Point of Care 162 mg/dl (65-105)
--- NOTE | 2024-03-28 09:24 | PM.IMPN ---
Progress Note: A&P Assessment and Plan (1) Acute pancreatitis: Qualifiers: Acute pancreatitis complication: no infection or necrosis Pancreatitis type: idiopathic Qualified Code(s): K85.00 - Idiopathic acute pancreatitis without necrosis or infection Code(s): K85.90 - Acute pancreatitis without necrosis or infection, unspecified Status: Acute Assessment and Plan: MRCP and Ultrasound show interstitial pancreatitis, prior imaging shows pleural effusion and ascites noted on MRCP. No obstruction noted, LFTs improving. Start Diabetic diet as tolerated. (2) Uncontrolled hypertension: Code(s): I10 - Essential (primary) hypertension Status: Acute Assessment and Plan: Home doses Coreg 12.5 BID, Lisinopril 10, furosemide 40mg. Off coreg and Lasix since January, blood pressure also elevated in the setting of pain --Continue hydralazine 10 mg IV q.4 hours p.r.n. for systolic blood pressures greater than 180 --Increased Coreg 12.5<25, Lisinopril 10<20mg--->10mg, started amlodipine 5mg, Started hydralazine 25 QID (hold parameters for SBP <140) 03/27: BP stable and improved (3) Type 2 diabetes mellitus: Qualifiers: Diabetes mellitus complication status: with hyperglycemia Diabetes mellitus nursing home insulin use: without remote computer terminal operator use Qualified Code(s): E11.65 - Type 2 diabetes mellitus with hyperglycemia Code(s): E11.9 - Type 2 diabetes mellitus without complications Status: Acute Assessment and Plan: A1c came back greater than 10. would benefit from diet lifestyle modifications Will place patient on moderate sliding scale insulin with Accu-Cheks ACHS and hypoglycemia protocol. Patient has a working knowledge of how to inject insulin from helping family previously but needs additional education family educator to see (4) Asthma: Qualifiers: Asthma complication type: with acute exacerbation Asthma persistence: intermittent Asthma severity: mild Qualified Code(s): J45.21 - Mild intermittent asthma with (acute) exacerbation Code(s): J45.909 - Unspecified asthma, uncomplicated Status: Acute Assessment and Plan: Nebs changed to PRN (5) Tobacco abuse disorder: Code(s): Z72.0 - Tobacco use Status: Acute Assessment and Plan: Smoking cessation education has been provided. Patient is not interested in quitting smoking. Nicotine patch was offered but patient refused. (6) Acute pain: Code(s): R52 - Pain, unspecified Status: Acute Assessment and Plan: Schedule oxyCR 10mg q12 x3 days patient states that he wants to go to back to the morphine as he feels it works better than the Dilaudid (7) Conjunctivitis: Code(s): H10.9 - Unspecified conjunctivitis Status: Acute Assessment and Plan: Improvement Has significant drainage and crusting to left eye that started today Erythromycin ointment left eye QID x5 days Follow clinically (8) High bilirubin: Code(s): R17 - Unspecified jaundice Status: Acute Assessment and Plan: LFT/Bilirubin improved (9) Leukocytosis: Code(s): D72.829 - Elevated white blood cell count, unspecified Status: Acute Assessment and Plan: UA unremarkable chest x-ray with possible pneumonia no signs of soft tissue infection WBC 13.3, downtrending (10) CHF (congestive heart failure): Code(s): I50.9 - Heart failure, unspecified Status: Acute Assessment and Plan: Pleural effusion, on room air Resume home Lasix Consider Echo if any worsening (11) Pneumonia: Code(s): J18.9 - Pneumonia, unspecified organism Status: Acute Assessment and Plan: pneumonia versus atelectasis seen on chest x-ray, patient has leukocytosis On Rocephin/Azithromycin, WBC downtrending Time Spent With Patient Time with patient: Greater than 35 minutes Subjective Date/time seen: 03/28/24 09:24 Interval history: 03/28- assuming care. Patient continues to have abdominal pain, requiring scheduled dose of morphine Review of Systems Review of Systems: 12 systems were reviewed with pertinent positives and negatives per HPI. Except as documented in the HPI, all other systems were reviewed and are negative. All systems reviewed & are unremarkable except as noted in HPI and below Exam Narrative: General - Awake and alert. No acute distress Eyes - PERRLA, EOM intact ENT - No thrush, No erythema Neck - No noticeable or palpable swelling Lymph Nodes - No lymphadenopathy Cardiovascular - RRR no m/r/g, no JVD Lungs: Clear to auscultation, No wheezing, use of accessory muscles, no crackles Skin - Skin warm and dry, no wounds or rashes Abdomen - Normal bowel sounds, abdomen soft, distended, generalized tenderness to palpation Extremities - No edema, cyanosis or clubbing Musculoskeletal - 5/5 strength, normal range of motion, no swollen or erythematous joints. Neurological ? Alert and oriented x 3, CN 2-12 grossly intact. Psych: Normal mood and affect Const: Other: No acute distress, lying in bed with head of bed at 60? go appears stated age, morbidly obese HENMT: Other: Mucous membranes are tacky, no oral pharyngeal erythema, crowded posterior oropharynx, fair dentition Eyes: Other: Pupils are equal and reactive, extraocular movements intact although it appears if the patient's right eye may chronically be slightly deviated inward but patient does have history of prior orbital surgery which may be distorting the appearance of orbits Neck: Other: Large neck circumference, possible thyromegaly, no JVD Resp: Other: Tachypneic, diffuse wheezing bilateral upper and lower lung zones, no accessory muscle use Cardio: Other: Tachycardic, 2+ bilateral radial pedal pulses, no murmur, no JVD GI: Other: Diffuse abdominal tenderness but worse in the epigastric and right upper quadrant region, distended, normoactive bowel sounds : Other: 1 L of urine sitting in the urinal at bedside Skin: Other: No jaundice, no pallor, extensive struck nugent across the abdominal wall Neuro: Other: Alert oriented x4, speech is clear, no facial asymmetry Extrem: Other: 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, no clubbing, cyanosis or edema Psych: Other: Appropriate mood and affect, cooperative, Objective Data Vital Signs Vital Signs: Vital Signs - 24 hr 03/27/24 09:33 03/27/24 12:44 03/27/24 14:00 Temperature 98.1 F Pulse Rate 95 85 91 Respiratory Rate 20 18 Blood Pressure 120/69 133/69 Pulse Oximetry 95 96 Oxygen Delivery 03/27/24 16:22 03/27/24 16:20 03/27/24 16:30 Temperature Pulse Rate 80 82 74 Respiratory Rate 20 20 Blood Pressure Pulse Oximetry Oxygen Delivery 03/27/24 20:07 03/27/24 20:00 03/28/24 05:34 Temperature 97.6 F 97.9 F Pulse Rate 77 80 Respiratory Rate 18 17 Blood Pressure 114/69 143/75 H Pulse Oximetry 100 96 Oxygen Delivery Room Air Intake/Output Intake/Output: Intake & Output 03/25/24 03/26/24 03/27/2404/24 23:59 23:59 23:59 23:59 Intake Total 2953.8 3738.3 1094.7 Balance 2953.8 3738.3 1094.7 Meds/Results Medications: Active Medications Generic Name Dose Route Start Last Admin Trade Name Freq PRN Reason Stop Dose Admin Hydrocodone Bitart/Acetaminophen 1 tab 03/24/24 18:53 03/28/24 05:28 Hydrocodone/Acetaminophen (*Crx) 10-325 Mg Tablet PO 1 tab Q4H PRN Administration Pain Rated 5 or Less Amlodipine Besylate 5 mg 03/23/24 18:08 03/27/24 09:33 Amlodipine Besylate 5 Mg Tablet PO 5 mg DAILY VIKY Administration Aspirin 81 mg 03/23/24 09:00 03/27/24 09:33 Aspirin 81 Mg Enteric Tablet PO 81 mg DAILY VIKY Administration Carvedilol 25 mg 03/24/24 08:00 03/27/24 16:22 Carvedilol 25 Mg Tablet PO 25 mg BIDWM VIKY Administration Dextrose 12.5 gm 03/23/24 05:48 Dextrose 50% 25 Gm/50 Ml Syringe IV PUSH PRN PRN Hypoglycemia Protocol Enoxaparin Sodium 40 mg 03/23/24 09:00 03/27/24 09:33 Enoxaparin 40 Mg/0.4 Ml Syringe SUB-Q 40 mg DAILY VIKY Administration Furosemide 40 mg 03/27/24 09:00 03/27/24 11:22 Furosemide 40 Mg Tablet PO 40 mg DAILY VIKY Administration Glucagon 1 mg 03/23/24 05:48 Glucagon For Inj 1 Mg Vial IM PRN PRN Hypoglycemia Protocol Glucose 15 gm 03/23/24 05:48 Glucose Oral Gel 15 Gm Of Glucse In 37.5 Gm Tube PO PRN PRN Hypoglycemia Protocol Hydralazine HCl 25 mg 03/24/24 09:00 03/27/24 20:29 Hydralazine Hcl 25 Mg Tablet PO Not Given QID VIKY Hydralazine HCl 10 mg 03/24/24 07:23 Hydralazine Hcl 20 Mg/Ml Vial IV PUSH Q4H PRN SBP>200, dbp>110 Dextrose 1,000 mls @ 100 mls/hr 03/23/24 05:48 Dextrose 5% 1,000 Ml IVPB PRN PRN Hypoglycemia Protocol Ceftriaxone Sodium 1 gm in 50 mls @ 100 mls/hr 03/26/24 16:00 03/27/24 15:51 Rocephin 1 Gm/Ns 50 Ml IVPB Infused Q24H VIKY Infusion Azithromycin 500 mg in 250 mls @ 250 mls/hr 03/27/24 17:00 03/27/24 17:20 Zithromax IVPB Infused Q24H VIKY Infusion Insulin Aspart 3 - 6 units 03/23/24 06:00 03/28/24 05:47 Insulin Aspart (*Bkc) 100 Units/Ml SUB-Q Not Given Q6HR [facility] Protocol Ipratropium Archer 0.5 mg 03/27/24 16:41 Ipratropium Br 0.02% Inh Soln 0.5 Mg/2.5 Ml Vial INHALATION Q6HRT PRN wheezing/Shortness of breath Levalbuterol HCl 1.25 mg 03/27/24 16:41 Levalbuterol Neb 1.25 Mg/3 Ml INHALATION Q6HRT PRN wheezing/Shortness of breath Lisinopril 10 mg 03/25/24 09:00 03/27/24 09:33 Lisinopril 10 Mg Tablet PO 10 mg QAM VIKY Administration Loratadine 10 mg 03/23/24 09:00 03/27/24 09:33 Loratadine 10 Mg Tablet PO 10 mg DAILY VIKY Administration Morphine Sulfate 6 mg 03/26/24 12:22 03/28/24 03:44 Morphine Sulfate (*Crx) 4 Mg/Ml Inj IV PUSH 6 mg Q4H PRN Administration Pain Rated 7-10 Pantoprazole Sodium 40 mg 03/23/24 09:00 03/27/24 20:27 Pantoprazole Sodium Iv 40 Mg Vial IV PUSH 40 mg Q12HR VIKY Administration Senna/Docusate Sodium 1 tab 03/23/24 21:00 03/27/24 20:22 Senna/Docusate Sodium Tablet PO 1 tab HS VIKY Administration Radiology Results: ITS Impressions Chest X-Ray 03/26/24 09:19 IMPRESSION: 1. New opacities in the bilateral lower lung zones which could represent atelectasis, pneumonia or combination thereof. Abdomen/Pelvis CT 03/26/24 16:14 IMPRESSION: 1. Acute interstitial pancreatitis, stable from 03/22/2024. 2. Worsened small volume of ascites. 3. Worsened small pleural effusions. MRCP 03/27/24 11:06 IMPRESSION: 1. Radiographically uncomplicated acute interstitial pancreatitis. No pancreatic ductal dilation, IPMN or other suspicious pancreatic lesions. 2. Bibasilar lung disease which could represent atelectasis or pneumonia with tiny bilateral pleural effusions. 3. Hepatomegaly with diffuse hepatic steatosis. 4. Small amount of ascites scattered throughout the abdomen and pelvis likely related to the pancreatitis. Abdomen Ultrasound 03/27/24 11:15 IMPRESSION: 1. Normal gallbladder. 2. Acute pancreatitis. 3. Diffuse hepatic steatosis. Labs Labs: Laboratory Results - last 24 hr 03/27/24 03/27/24 03/27/24 05:42 11:53 17:24 WBC RBC Hgb Hct MCV MCH MCHC RDW Plt Count MPV Immature Gran % (Auto) Neut % (Auto) Lymph % (Auto) [place] % (Auto) Eos % (Auto) Baso % (Auto) Lymph # (Auto) [place] # (Auto) Eos # (Auto) Baso # (Auto) Abs Immat Gran (auto) Absolute Neuts (auto) Absolute Nucleated RBC Nucleated RBC % Sodium Potassium Chloride Carbon Dioxide Anion Gap BUN Creatinine Estim Creat Clear Calc Estimated GFR Glucose POC Capillary Glucose 153 H 188 H Calcium Magnesium 2.3 NT-Pro-B Natriuret Pep Triglycerides 144 Cholesterol 130 LDL Cholesterol Direct 76 HDL Direct 19 Lipase 03/27/24 03/28/24 03/28/24 23:34 05:14 05:40 WBC 13.9 H RBC 4.30 L Hgb 12.1 L Hct 38.0 L MCV 88.4 MCH 28.1 MCHC 31.8 L RDW 13.4 Plt Count 276 MPV 11.2 H Immature Gran % (Auto) 1.2 H Neut % (Auto) 77.3 H Lymph % (Auto) 7.8 L [place] % (Auto) 10.0 H Eos % (Auto) 3.1 Baso % (Auto) 0.6 Lymph # (Auto) 1.09 [place] # (Auto) 1.4 H Eos # (Auto) 0.4 H Baso # (Auto) 0.1 Abs Immat Gran (auto) 0.16 H Absolute Neuts (auto) 10.8 H Absolute Nucleated RBC 0.000 Nucleated RBC % 0.0 Sodium 131 L Potassium 3.3 L Chloride 96 L Carbon Dioxide 33 H Anion Gap 2 L BUN 14 Creatinine 0.70 Estim Creat Clear Calc 215 Estimated GFR > 60 Glucose 184 H POC Capillary Glucose 159 H 190 H Calcium 8.7 Magnesium NT-Pro-B Natriuret Pep 261 H Triglycerides Cholesterol LDL Cholesterol Direct HDL Direct Lipase 45 03/28/24 08:46 WBC RBC Hgb Hct MCV MCH MCHC RDW Plt Count MPV Immature Gran % (Auto) Neut % (Auto) Lymph % (Auto) [place] % (Auto) Eos % (Auto) Baso % (Auto) Lymph # (Auto) [place] # (Auto) Eos # (Auto) Baso # (Auto) Abs Immat Gran (auto) Absolute Neuts (auto) Absolute Nucleated RBC Nucleated RBC % Sodium Potassium Chloride Carbon Dioxide Anion Gap BUN Creatinine Estim Creat Clear Calc Estimated GFR Glucose POC Capillary Glucose 162 H Calcium Magnesium NT-Pro-B Natriuret Pep Triglycerides Cholesterol LDL Cholesterol Direct HDL Direct Lipase Quality VTE Prophylaxis VTE prophylaxis: pharmacologic ordered (Lovenox 40 mg subQ daily.)
[2024-03-28 09:26] VITALS: PULSE 82
[2024-03-28] MEDS: hydrALAZINE HCL 25 MG TABLET PO ×3 (09:26→17:06)
[2024-03-28] MEDS: FUROSEMIDE 40 MG TABLET PO (09:26)
[2024-03-28] MEDS: lisinopriL 10 MG TABLET PO (09:26)
[2024-03-28] MEDS: ASPIRIN 81 MG ENTERIC TABLET PO (09:26)
[2024-03-28] MEDS: carvediloL 25 MG TABLET PO ×2 (09:26→17:06)
[2024-03-28] MEDS: PANTOPRAZOLE SODIUM IV 40 MG VIAL IV PUSH (09:26)
[2024-03-28] MEDS: amLODIPine BESYLATE 5 MG TABLET PO (09:27)
[2024-03-28] MEDS: ENOXAPARIN 40 MG/0.4 ML SYRINGE SUB-Q (09:27)
[2024-03-28] MEDS: LORATADINE 10 MG TABLET PO (09:27)
[2024-03-28 12:04] LABS: Glucose Point of Care 209 mg/dl (65-105)
[2024-03-28] MEDS: AMOXICILLIN/CLAVULANATE K 875-125 MG TAB 1 TABLET PO (13:14)
[2024-03-28] MEDS: AZITHROMYCIN 250 MG TABLET 500 MG PO (13:15)
[2024-03-28] MEDS: POTASSIUM CHLORIDE 20 MEQ PACKET (FOR LIQUID) PO (13:15)
[2024-03-28] MEDS: INSULIN ASPART (*BKC) 100 UNITS/ML SUB-Q ×2 (13:15→17:06)
[2024-03-28] MEDS: FUROSEMIDE INJ 40 MG/4 ML VIAL 20 MG IV PUSH (13:55)
[2024-03-28 14:00] VITALS: BP 158/96; PULSE 88; RESP 20; TEMP 36.4; O2SAT 99
--- NOTE | 2024-03-28 14:32 | PM.DS ---
DS: Admitting Diagnosis Discharge Date 03/28 Admitting Diagnosis abd pain DS: Discharge Diagnosis Discharge Diagnosis (1) Acute pancreatitis: Qualifiers: Acute pancreatitis complication: no infection or necrosis Pancreatitis type: idiopathic Qualified Code(s): K85.00 - Idiopathic acute pancreatitis without necrosis or infection Code(s): K85.90 - Acute pancreatitis without necrosis or infection, unspecified Status: Acute (2) Uncontrolled hypertension: Code(s): I10 - Essential (primary) hypertension Status: Acute (3) Type 2 diabetes mellitus: Qualifiers: Diabetes mellitus complication status: with hyperglycemia Diabetes mellitus technician terminal and repeater insulin use: without technician terminal and repeater use Qualified Code(s): E11.65 - Type 2 diabetes mellitus with hyperglycemia Code(s): E11.9 - Type 2 diabetes mellitus without complications Status: Acute Assessment and Plan: (4) Asthma: Qualifiers: Asthma complication type: with acute exacerbation Asthma persistence: intermittent Asthma severity: mild Qualified Code(s): J45.21 - Mild intermittent asthma with (acute) exacerbation Code(s): J45.909 - Unspecified asthma, uncomplicated Status: Acute (5) Tobacco abuse disorder: Code(s): Z72.0 - Tobacco use Status: Acute (6) Acute pain: Code(s): R52 - Pain, unspecified Status: Acute Assessment and Plan: (7) Conjunctivitis: Code(s): H10.9 - Unspecified conjunctivitis Status: Acute (8) High bilirubin: Code(s): R17 - Unspecified jaundice Status: Acute (9) Leukocytosis: Code(s): D72.829 - Elevated white blood cell count, unspecified Status: Acute Assessment and Plan: (10) CHF (congestive heart failure): Code(s): I50.9 - Heart failure, unspecified Status: Acute (11) Pneumonia: Code(s): J18.9 - Pneumonia, unspecified organism Status: Acute DS: Summary Hospital Course Hospital Course: 38-year-old male with past medical history of asthma, CHF, essential hypertension, coronary artery disease, TIA and prior VT due to hypertensive disease who presented to the ER from home via EMS due to chest pain. In the field a STEMI was called but EKG was reviewed by ER staff and was not consistent with STEMI findings. The patient reports that he was feeling okay until right after he ate Thanksgiving dinner. He then developed acute severe epigastric pain that radiated into his chest. He became acutely diaphoretic and nauseous. He reported that the symptoms or exactly like when he had had prior heart attack. He the patient admits that he has been noncompliant with his cardiac medications. He had not filled his Coreg or Lasix since January of 2023. He still had some pills left in his bottles of Coreg and Lasix. He was also supposed be on lisinopril. He is also supposed be on cholesterol medications. He states that he was on more expensive cardiac meds but was unable to pay for them. EMS reported that the patient's blood pressures on their arrival to his residence was in 250/150. Following issues were addressed: #acute pancreatitis MRCP and Ultrasound show interstitial pancreatitis, prior imaging shows pleural effusion and ascites noted on MRCP. No obstruction noted, LFTs improving. Start Diabetic diet as tolerated. stable- OK with GI for discharge with a close f/u # HTN Home doses Coreg 12.5 BID, Lisinopril 10, furosemide 40mg. Off coreg and Lasix since January, blood pressure also elevated in the setting of pain --Increased Coreg 12.5<25, Lisinopril 10<20mg, started amlodipine 5mg-but stopped due to leg swelling. Started hydralazine 25 QID - needs to take meds as prescribed and not miss doses -close f/u with PCP # t2dm A1c came back greater than 10. would benefit from diet lifestyle modifications Will place patient on moderate sliding scale insulin with Accu-Cheks ACHS and hypoglycemia protocol. Patient has a working knowledge of how to inject insulin from helping family previously but needs additional education Diabetes education completed Plan: start lantus 10 unuts at hs, metfromin 500 mg daily x 1 week and then increase to bid. Needs f/u with pcp in 2 weeks or sooner for regimen titration. Monitor bs in am and record readings. Goal 80-130. If BS 70 or less- call PCP right away. Will need repeat hgac and kidney function in 2-3 months. Time Spent with Patient Time attestation: Total time spent providing and/or coordinating discharge services: Exam Narrative: General - Awake and alert. No acute distress Eyes - PERRLA, EOM intact ENT - No thrush, No erythema Neck - No noticeable or palpable swelling Lymph Nodes - No lymphadenopathy Cardiovascular - RRR no m/r/g, no JVD Lungs: Clear to auscultation, No wheezing, use of accessory muscles, no crackles Skin - Skin warm and dry, no wounds or rashes Abdomen - Normal bowel sounds, abdomen soft, distended, generalized tenderness to palpation Extremities - No edema, cyanosis or clubbing Musculoskeletal - 5/5 strength, normal range of motion, no swollen or erythematous joints. Neurological ? Alert and oriented x 3, CN 2-12 grossly intact. Psych: Normal mood and affect Const: Other: No acute distress, lying in bed with head of bed at 60? go appears stated age, morbidly obese HENMT: Other: Mucous membranes are tacky, no oral pharyngeal erythema, crowded posterior oropharynx, fair dentition Eyes: Other: Pupils are equal and reactive, extraocular movements intact although it appears if the patient's right eye may chronically be slightly deviated inward but patient does have history of prior orbital surgery which may be distorting the appearance of orbits Neck: Other: Large neck circumference, possible thyromegaly, no JVD Resp: Other: Tachypneic, diffuse wheezing bilateral upper and lower lung zones, no accessory muscle use Cardio: Other: Tachycardic, 2+ bilateral radial pedal pulses, no murmur, no JVD GI: Other: Diffuse abdominal tenderness but worse in the epigastric and right upper quadrant region, distended, normoactive bowel sounds : Other: 1 L of urine sitting in the urinal at bedside Skin: Other: No jaundice, no pallor, extensive struck nugent across the abdominal wall Neuro: Other: Alert oriented x4, speech is clear, no facial asymmetry Extrem: Other: 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, no clubbing, cyanosis or edema Psych: Other: Appropriate mood and affect, cooperative, DS: Data Data Completed and Pending Labs on day of discharge: Labs from last 24 hours 03/28/24 03/28/24 03/28/24 11:59 08:46 05:40 WBC 13.9 H RBC 4.30 L Hgb 12.1 L Hct 38.0 L MCV 88.4 MCH 28.1 MCHC 31.8 L RDW 13.4 Plt Count 276 MPV 11.2 H Immature Gran % (Auto) 1.2 H Neut % (Auto) 77.3 H Lymph % (Auto) 7.8 L [place] % (Auto) 10.0 H Eos % (Auto) 3.1 Baso % (Auto) 0.6 Lymph # (Auto) 1.09 [place] # (Auto) 1.4 H Eos # (Auto) 0.4 H Baso # (Auto) 0.1 Abs Immat Gran (auto) 0.16 H Absolute Neuts (auto) 10.8 H Absolute Nucleated RBC 0.000 Nucleated RBC % 0.0 Sodium 131 L Potassium 3.3 L Chloride 96 L Carbon Dioxide 33 H Anion Gap 2 L BUN 14 Creatinine 0.70 Estim Creat Clear Calc 215 Estimated GFR > 60 Glucose 184 H POC Capillary Glucose 209 H 162 H Calcium 8.7 NT-Pro-B Natriuret Pep 261 H Triglycerides Cholesterol LDL Cholesterol Direct HDL Direct Lipase 45 03/28/24 03/27/24 03/27/24 05:14 23:34 17:24 WBC RBC Hgb Hct MCV MCH MCHC RDW Plt Count MPV Immature Gran % (Auto) Neut % (Auto) Lymph % (Auto) [place] % (Auto) Eos % (Auto) Baso % (Auto) Lymph # (Auto) [place] # (Auto) Eos # (Auto) Baso # (Auto) Abs Immat Gran (auto) Absolute Neuts (auto) Absolute Nucleated RBC Nucleated RBC % Sodium Potassium Chloride Carbon Dioxide Anion Gap BUN Creatinine Estim Creat Clear Calc Estimated GFR Glucose POC Capillary Glucose 190 H 159 H 188 H Calcium NT-Pro-B Natriuret Pep Triglycerides Cholesterol LDL Cholesterol Direct HDL Direct Lipase 03/27/24 05:42 WBC RBC Hgb Hct MCV MCH MCHC RDW Plt Count MPV Immature Gran % (Auto) Neut % (Auto) Lymph % (Auto) [place] % (Auto) Eos % (Auto) Baso % (Auto) Lymph # (Auto) [place] # (Auto) Eos # (Auto) Baso # (Auto) Abs Immat Gran (auto) Absolute Neuts (auto) Absolute Nucleated RBC Nucleated RBC % Sodium Potassium Chloride Carbon Dioxide Anion Gap BUN Creatinine Estim Creat Clear Calc Estimated GFR Glucose POC Capillary Glucose Calcium NT-Pro-B Natriuret Pep Triglycerides 144 Cholesterol 130 LDL Cholesterol Direct 76 HDL Direct 19 Lipase Preliminary micro results at discharge 03/25/24 08:01 Blood Culture - Preliminary Blood 03/25/24 07:52 Blood Culture - Preliminary Blood Discharge Plan Discharge Attending physician on discharge: Andre Isbell Discharging Clinician: Rita Oakes Patient Disposition: Home, Self-Care Activity: may shower Diet: diabetic Discharge Instructions: Please finish your antibiotics: azithromycin and augmentin. You should start feeling better- but it migth take few days after antibiotics are done to completely feel back to your normal self. HTN: -continue Coreg 25mg twice a day, Lisinopril 20mg daily, amlodipine 5mg-but stopped due to leg swelling. Started hydralazine 25 mg 4 times a day. Check your BP every morning and keep records. Bring it to your pcp and/or cardiology jean claude for review. Please avoid salt/deep fried foods. You will keep to lose weight to improve BP and diabetes. Start exercising as you are able to tolerates- walking is a great start. Avoid sugary drinks. Plan: start lantus 10 unuts at bedtime, metfromin 500 mg daily x 1 week and then increase to bid. Needs f/u with pcp in 2 weeks or sooner for regimen titration. Monitor bs in am and record readings. Goal 80-130. If BS 70 or less- call PCP right away. Will need repeat hgac and kidney function in 2-3 months. Patient Instructions: Heart Failure (GEN), Chest Pain (GEN), Sleep Apnea (GEN), How to Stop Smoking (DC), Cigarette Smoking and Your Health (GEN), Foot Care for People with Diabetes (GEN), Hypoglycemia in a Person with Diabetes (GEN), Type 2 Diabetes in Adults: New Diagnosis (GEN), Basic Carbohydrate Counting (GEN), Meal Planning with the Plate Method (GEN), Meal Planning with Diabetes Exchanges (GEN), Hyperosmolar Hyperglycemic State (GEN), Managing Diabetes During Sick Days (GEN), Foot Ulcers in a Person with Diabetes (GEN), Low-Sodium Diet (GEN), CPAP (GEN), Diabetic Kidney Disease (GEN), Diabetes and Your Skin (GEN), Hemoglobin A1c (GEN), Mediterranean Diet (GEN), Hypertension and Diabetes (GEN), What to Do if Your Blood Sugar is Low (GEN), Diabetes and Nutrition (GEN), Diabetes and Exercise (GEN), Left-sided and Right-sided Heart Failure (GEN), Type 2 Diabetes Management for Adults (GEN), Antibiotic Form Stand Alone Forms: General Discharge Information Follow-up/Referrals: Fred Rios MD [Primary Care Provider] - 2 Weeks Discharge Medications: New insulin glargine [Lantus Solostar U-100 Insulin] 100 unit/mL (3 mL) insulin pen 10 unit subcut QPM Qty: 15 0RF metformin 500 mg tablet extended release 24 hr 500 mg PO BID Qty: 90 0RF Rx Instructions: take 500 mg daily for 1 week, then increase to twice day hydrocodone-acetaminophen 5-325 mg tablet 1 tablet PO Q6H Qty: 20 0RF (DME) pen needle, diabetic 31 gauge x 1/4 needle See Rx Instructions .Route Qty: 100 0RF Rx Instructions: As directed (DME) blood-glucose meter Kit See Rx Instructions .Route Qty: 1 0RF Rx Instructions: As directed azithromycin [Zithromax] 250 mg Tablet 500 mg PO DAILY Qty: 2 0RF carvedilol [Coreg] 25 mg Tablet 25 mg PO BIDWM Qty: 90 0RF hydralazine 25 mg Tablet 25 mg PO QID Qty: 90 0RF amoxicillin-pot clavulanate 875-125 mg tablet 1 tablet PO Q12H Qty: 5 0RF ketorolac 10 mg tablet 10 mg PO Q8H PRN (Reason: pain) 5 Days Qty: 15 0RF Continued furosemide 40 mg Tablet 40 mg PO DAILY aspirin [Adult Low Dose Aspirin] 81 mg Tablet,Delayed Release (Dr/Ec) 81 mg PO DAILY loratadine [Claritin] 10 mg Tablet 10 mg PO DAILY Changed lisinopril 10 mg Tablet 20 mg PO DAILY Qty: 90 0RF Discontinued carvedilol 12.5 mg Tablet 12.5 mg PO BID Rx Instructions: must administer with a meal/food Date of admission: 03/23/24 07:34 Primary Care Provider: Fred Rios Admitting Provider: Kate Henley Attending physician on admission: Bel Oakes Condition: Stable Quality VTE Prophylaxis VTE prophylaxis: pharmacologic ordered (Lovenox 40 mg subQ daily.) Hospitalist MIPS Heart Failure (Exclusion) Patient has history of Heart Transplant or Left Ventricular Assistive Device?: No IF YES, STOP HERE Heart Failure (Qualifier) Patient has current or prior documentation of LVEF less than or equal to 40%, or mod/servere depressed LVSF?: No IF NO, STOP HERE
[2024-03-28 16:54] LABS: Glucose Point of Care 203 mg/dl (65-105)
[2024-03-28 17:06] VITALS: PULSE 82
== END 2024-03-28 18:10 | disposition home or self-care (01) | DRG 282 ==
LOC: ANHED 03-23 00:07 → ANH2MED 03-23 01:22
PROVIDERS: Internal Medicine; Internal Medicine Gastroenterology; Nurse Practitioner; Nurse Practitioner Acute Care; Nurse Practitioner Gerontology; Admitting Provider Internal Medicine; Emergency Provider Emergency Medicine; PCP Family Medicine Adolescent Medicine; Visit Provider Nurse Practitioner
DX: K85.90 Acute pancreatitis without necrosis or infection, unspecified (principal); J18.9 Pneumonia, unspecified organism; I11.0 Hypertensive heart disease with heart failure; I50.9 Heart failure, unspecified; Z91.148 Patient's other noncompliance with medication regimen for other reason; I25.10 Atherosclerotic heart disease of native coronary artery without angina pectoris; G47.33 Obstructive sleep apnea (adult) (pediatric); J45.909 Unspecified asthma, uncomplicated; E11.65 Type 2 diabetes mellitus with hyperglycemia; H10.9 Unspecified conjunctivitis; R17 Unspecified jaundice; F17.210 Nicotine dependence, cigarettes, uncomplicated; Z86.73 Personal history of transient ischemic attack (TIA), and cerebral infarction without residual deficits; I25.2 Old myocardial infarction
CPT/HCPCS: 36415; 71045; 74176; 74177; 74183; 76376; 76705; 80048; 80053; 80061; 80074; 80076; 80307; 81001; 82948; 83036; 83690; 83735; 83880; 84484; 85025; 85610; 85730; 87040; 93005; 94640; 96361; 96374; 96375; 96376; 99285; A9270; A9577; G0378; J0360; J0456; J0696; J1171; J1650; J1815; J1885; J1940; J2270; J2405; J2470; J3480; J7030; J7040; J7120; Q9967

== ENCOUNTER 2024-09-21 08:03 | Inpatient (IN) | payer SELFPAY ==
[2024-09-21] VITALS (15 sets, daily range): BP systolic 153–212; BP diastolic 103–139; PULSE 61–92; RESP 17–24; TEMP 36.3–36.5; O2SAT 95–100; BMI 42.3
--- NOTE | ~2024-09-21 | CT_ITS ---
EXAMINATION: CT brain wo con DATE: 09/22/2024 11:29 INDICATION: Acute headache. TECHNIQUE: Computed tomography (CT) of the head was performed without intravenous contrast. The dose- length product was 681.00 mGy-cm. Automated exposure control and iterative reconstruction technique w ere employed. COMPARISON: None FINDINGS: Normal brain parenchymal volume for age. No acute hemorrhage, infarction, mass or mass effe ct. There is mucosal thickening of the left maxillary sinus. There are surgical changes of the inferi or orbital rim. Normal chaparro-white differentiation. No ventriculomegaly or midline shift. IMPRESSION: 1. No acute intracranial abnormality. 2: Moderate left maxillary sinusitis. Reviewed, dictated and finalized at location A.
--- NOTE | ~2024-09-21 | XR_ITS ---
CHEST RADIOGRAPH CLINICAL HISTORY: chest pain/soa . COMPARISON: 03/26/2024 TECHNIQUE: Single portable view of the chest. FINDINGS The cardiomediastinal silhouette is unremarkable. The lungs are clear. IMPRESSION: No focal infiltrate or effusion. Reviewed, dictated and finalized at location A.
--- NOTE | ~2024-09-21 | CT_ITS ---
EXAMINATION: CTA chest abdomen pelvis DATE: 09/21/2024 09:50 INDICATION: Chest pain, shortness of breath and epigastric pain TECHNIQUE: Computed tomographic angiography (CTA) of the chest, abdomen, and pelvis was performed wit hout and with 100 mL Omnipaque-350 intravenous contrast. Volume-rendered 3D-reconstructions of the ao rta and large arteries were constructed by the technologist on a separate workstation. Automated expo sure control and iterative reconstruction technique were employed. The dose-length product was 2194.9 4 mGy-cm. COMPARISON: CT dated 03/26/2024 FINDINGS: Chest: Discoid atelectasis at the lingula with additional minimal atelectasis in the bilateral lower lobes. Subtle mosaic attenuation in the visualized upper lungs with a few regions of more lucent air trappin g consistent with small airway disease. No pneumonia, pulmonary edema, pleural effusion or pneumothor ax. Heart size is normal. Atherosclerotic coronary artery calcific location. No pericardial effusion. Thoracic aorta is normal in caliber with no dissection. Enlargement of the central pulmonary arterie s consistent with pulmonary arterial hypertension. No pathologically enlarged thoracic lymphadenopath y. Moderate thoracic spondylosis. Abdomen and pelvis: Diffuse hepatic steatosis. Again seen is subtle marrow edema versus trace amount of pericholecystic f luid surrounding the otherwise normal nondilated gallbladder which was without evident cholelithiasis on MRI/MRCP dated 03/27/2024. Spleen, pancreas, bilateral adrenal glands and kidneys are normal. Blad reymundo is normal. Bowels including the appendix are normal. No pathologically enlarged abdominal or pelv ic lymphadenopathy. Abdominal aorta is normal in caliber with no dissection. Mild lumbar spondylosis. Periumbilical and anterior lower abdominal predominant mild body wall edema. IMPRESSION: 1. Normal caliber aorta with no dissection or other acute cardiopulmonary disease. 2. Enlargement of the central pulmonary arteries consistent with pulmonary arterial hypertension. 3. Diffuse hepatic steatosis. 4. Mild edematous-appearing gallbladder wall thickening versus trace amount of pericholecystic fluid with no gallbladder dilation nor evident cholelithiasis on recent MRI/MRCP to suggest acute cholecyst itis. Differential would include chronic cholecystitis, liver, heart, renal disease or other generali zed edema forming states. Reviewed, dictated and finalized at location A. IMPRESSION: 1. Normal caliber aorta with no dissection or other acute cardiopulmonary disea se. 2. Enlargement of the central pulmonary arteries consistent with pulmonary samreen rial hypertension. 3. Diffuse hepatic steatosis. 4. Mild edematous-appearing gallbladder wall thickening versus trace amount of pericholecystic fluid with no gallbladder dilation nor evident cholelithiasis o n recent MRI/MRCP to suggest acute cholecystitis. Differential would include ch ronic cholecystitis, liver, heart, renal disease or other generalized edema for lawanda states.
--- NOTE | ~2024-09-21 | US_ITS ---
Limited Abdominal Sonogram: Real-time sonographic imaging of the right upper quadrant was performed. Clinical History: Pain Findings: The liver appears normal with no evidence of mass lesion or bile duct dilatation. Main por rahel vein demonstrates normal direction of flow. The gallbladder is well distended, and appears normal with no evidence of gallstone or wall thickening. The common bile duct measures 5 mm. The visualize d pancreas, aorta, and IVC are unremarkable. Impression: No significant abnormality seen. Reviewed, dictated and finalized at location M. Impression: No significant abnormality seen.
--- NOTE | 2024-09-21 08:05 | ECG_ITS ---
Test Date: 2024-09-21 08:05:44 Measurements Intervals [place] Rate: 90 P: 53 GA: 178 QRS: 9 QRSD: 98 T: 64 QT: 381 QTc: 468 Interpretive Statements SINUS RHYTHM NONSPECIFIC ST & T-WAVE ABNORMALITY Compared to ECG 03/23/2024 19:02:39 NO SIGNIFICNAT CHANGES Electronically Signed On 09-21-2024 15:06:24 CDT by Lima Garland M.D.
--- OUTSIDE RECORDS SUMMARY | 2024-09-21 08:34 | XMS_ITS | Patient Health Record ---
Author Organization [facility] Billing Info Address [address] [place] [address] Support Name Relationship Address Phone Noy Rome Emergency Contact [address] [place] [address] Daren Rome Guarantor Unknown [phone] Allergies Allergen (clinical drug ingredient) Drug/Non Drug Allergy documented on EMR Reaction Allergy Type Onset Date Status Ragweed Unknown Allergy Active Reason For Referral No Information Medications Medication SIG (Take, Route, Frequency, Duration) Notes Start Date End Date Status Farxiga 10 MG 1 tablet Orally Once a day for 90 days Active Bumex 0.5 MG 2 tablet Orally Once a day for 90 days Active Aspirin 81 MG 1 tablet Orally Once a day for 90 days Active Carvedilol 12.5 MG 1 tablet with food O rally Twice a day for 90 days Active Entresto 49-51 MG 1 tablet Orally Twic e a day for 90 days Active Spironolactone 25 MG 1 tablet Orally Onc e a day for 90 days Active Rosuvastatin Calcium 40 MG 1 tablet Oral ly Once a day for 30 days 01/06/2023 Active Social History Tobacco Use: Social History Observation Description Date Details (start date - stop date) Former Smoker NA - NA Tobacco Status: Question Answer Notes Patient is a former smoker Problems Problem Type SNOMED Code ICD Code Onset Dates Problem Status W/U Status Risk Notes Problem [id number] Chronic combined systolic (congestive) and diastolic (congestive) heart failure (I50.42) Active confirmed Plan Of Treatment Pending Test Test Name Order Date ECHO (38101) 01/06/2023 EKG (71410) ([facility]) 023 Insurance Providers Payer Name Payer Address Payer Phone Subscriber Number Group Number Insured Name Patient Relationship to Insured Coverage Start Date Coverage End Date MEDICAID PENDING [address] [place], [place] [id number] LatriciaDaren Self - patient is the insured [employer] PENDING [address] [place], [place] [id number] XX Daren Rome Self - patient is the insured UNINSURED DISCOUNT [address] [place], [place] [id number] XX Daren Rome Self - patient is the insured Medical (General) History Medical History History ICD Code NICM HTN TUAN Nonobstructive CAD by [facility] Surgical History Surgery Date(Month/Year) Metal plate in head Hospitalization History Reason Date(Month/Year) Acute on chronic HF exacerbation 12/15/22
[2024-09-21 08:35] LABS: Basophils Absolute Auto 0.1 K/mm3 (0.0-0.1); Basophils Percent Auto 0.5 % (0.2-1.2); Eosinophils Absolute Auto 0.5 K/mm3 (0-0.3); Eosinophils Percent Auto 4.5 % (0-4.4); Hematocrit 43.9 % (42.0-52.0); Hemoglobin 13.1 g/dL (14.0-18.0); Immature Granulocyte Absolute 0.04 K/mm3 (0.00-0.031); Immature Granulocyte Percent A 0.4 % (0-0.5); Lymphocytes Absolute Auto 1.48 K/mm3 (0.9-3.2); Lymphocytes Percent Auto 14.6 % (18.3-44.2); Mean Corpuscular HGB Conc 29.8 g/dl (32-36); Mean Corpuscular Hemoglobin 25.1 pg (26-34); Mean Corpuscular Volume 84.1 fl (80-100); Mean Platelet Volume 10.7 fl (7.4-10.4); Monocytes Absolute Auto 0.9 K/mm3 (0.1-0.6); Monocytes Percent Auto 8.8 % (2.6-8.5); Neutrophils Absolute Auto 7.2 K/mm3 (1.3-6.7); Neutrophils Percent Auto 71.2 % (45.5-73.1); Platelet Count Result 306 k/mm3 (150-375); Red Blood Count 5.22 M/mm3 (4.6-6.20); Red Cell Distribution Width 15.2 % (11.5-14.5); White Blood Count 10.1 K/mm3 (4.5-10.0)
[2024-09-21] MEDS: BELLADONNA ALK/PHENOB ELIX 10 ML, MAG HYDROX/ALUMINUM HYD/SIMETH 30 ML, LIDOCAINE 2% VI... PO (08:40)
[2024-09-21] MEDS: ONDANSETRON INJ 4 MG/2 ML VIAL IV PUSH ×2 (08:42→21:39)
[2024-09-21 08:44] LABS: Alanine Aminotransferase 24 U/L (6-50); Albumin Level 4.2 g/dL (3.5-5.1); Alkaline Phosphatase 75 U/L (38-126); Anion Gap 8 mmol/L (4-12); Aspartate Amino Transferase 23 U/L (17-59); Bilirubin,Total 1.1 mg/dL (0.2-1.3); Blood Urea Nitrogen 19 mg/dL (9-20); Carbon Dioxide 28 mmol/L (22-30); Chloride 103 mmol/L (98-107); Estimated CRCL calculation 174 ml/min; Estimated Glomerular Filt Rate > 60; Glucose 160 mg/dL (65-110); Lipase 33 U/L (23-300); Potassium 3.4 mmol/L (3.4-5.0); Sodium 139 mmol/L (137-145)
[2024-09-21 08:48] LABS: INR 1.1; Partial Thromboplastin Time 26.2 Seconds (22.3-36.8); Prothrombin Time 14.1 Seconds (11.1-14.7)
[2024-09-21 08:53] LABS: Anisocytosis 1+; Burr Cells 1+; Hypochromasia 1+; Platelet Estimate Adequate (Adequate); Schistocytes None Seen; Target Cells 1+
[2024-09-21 08:56] LABS: NT Pro B Type Natriuretic Pept 1870 pg/mL (19.9-100); Troponin I < 0.012 ng/mL (0.000-0.034)
--- NOTE | 2024-09-21 09:32 | ED_ITS ---
HPI - Chest Pain General Chief Complaint: Chest Pain Stated Complaint: CP x 3 hours Time Seen by Provider: 09/21/24 08:09 History of Present Illness HPI narrative: Patient is a 39-year-old male who presents ER with chest pain. Began 2-3 hours prior to arrival. Feels like a person pushing a finger just left of the sternum. Associated with sweats. No improvement with nitroglycerin. Pain did go away after having his left arm poked in the ER. He has orthopnea. He reports shortness of breath. Also has abdominal discomfort when he is lying back. No diarrhea or vomiting. Related Data Home Medications ?Medication ?Instructions ?Recorded ?Confirmed ?Last Taken ?Type aspirin 81 mg tablet,delayed 81 mg PO DAILY 03/23/24 09/21/24 09/21/24 History release (Adult Low Dose Aspirin) furosemide 40 mg tablet 40 mg PO DAILY 03/23/24 09/21/24 09/21/24 History hydroxyzine HCl 25 mg tablet 25 mg PO TID PRN anxiety 09/21/24 09/21/24 09/21/24 History trazodone 100 mg tablet 100 mg PO HS PRN insomnia 09/21/24 09/21/24 09/20/24 History Allergies Allergy/AdvReac Type Severity Reaction Status Date / Time cat dander Allergy Itching Verified 09/21/24 08:40 RAGWEED Allergy Mild Itching Uncoded 09/21/24 08:40 Review of Systems 2 Review of Systems: All systems reviewed & are unremarkable except as noted in HPI and below Constitutional: Constitutional: Reports no additional constitutional complaints ENT: Reports system reviewed and no additional complaints, except as documented Cardiovascular: Cardiovascular: Reports no additional cardiovascular complaints Gastrointestinal: Gastrointestinal: Reports no additional gastrointestinal complaints Genitourinary: Genitourinary: Reports no additional male genitourinary complaints Musculoskeletal: Musculoskeletal: Reports no additional musculoskeletal complaints [facility] Past Medical History Medical History (Updated 09/21/24 @ 18:37 by Brennan Murcia MD) Type 2 diabetes mellitus Pancreatitis Transient ischemic attack Hepatic steatosis (02/2024) Tobacco abuse disorder Asthma Kidney stones Morbid obesity with BMI of 40.0-44.9, adult Obstructive sleep apnea Patient never went and got a CPAP because he knew he could not afford it? Hypertensive cardiomyopathy Hypertensive heart disease Coronary artery disease Surgical History Surgical History Status post open reduction with internal fixation of fracture Left orbital fracture History of cardiac catheterization Family History Family History Mother Diabetes mellitus Social History Social History (Updated 09/21/24 @ 15:25 by Ana Paula Crain PA-C) Social History: Surrogate medical decision maker: Zahida Rome, mother. Code status: Full code. Smoking packs per day: 0.5 Smoking cigarettes per day: 10.0 Years smoked: 23 Smoking pack-years: 11.50 Smoking status: Current every day smoker Alcohol intake: never Drinks per week: 1 Substance use: never Do You Feel Safe in your Home?: Yes Lack of Transportation: YES Lack of Food: Often True Current Housing: I Do Not Have Housing Concerned About Future Housing: YES Difficulty Paying Gas/Electric Bills: YES Difficulty Paying for Meds: YES Currently Unemployed: YES Education: Bachelor's Degree Difficulty w/ Childcare or Family Care: No Additional living arrangements comments: Single. Moved to the area from [place] in mid 2023. Additional occupation/education comments: [employer] for 6 years. 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: No Exam 2 Narrative: GENERAL: Well-appearing, well-nourished, and in no acute distress. HEAD: Normocephalic, atraumatic. ENT: Mucous membranes moist. CHEST: Clear to auscultation. No respiratory distress. HEART: Regular rate and rhythm. Normal peripheral pulses. ABDOMEN: Soft, bilateral upper quadrant tenderness with palpation, nondistended. EXTREMITIES: Normal range of motion. No edema. SKIN: Warm, dry, no rash. NEURO: Alert and oriented x3. PSYCH: Normal mood and affect. Course Course Emergency Course: High risk chest pain. Admit to the hospitalist service. Hydralazine for uncontrolled hypertension. Patient did take his blood pressure medication. Vital Signs Vital signs: Vital Signs Temperature 97.7 F 09/21/24 07:59 Pulse Rate 92 09/21/24 07:59 Respiratory Rate 17 09/21/24 07:59 Blood Pressure 212/139 H 09/21/24 07:59 Pulse Oximetry 98 09/21/24 07:59 Oxygen Delivery Room Air 09/21/24 07:59 Temperature 97.3 F L 05/30/25 16:41 Pulse Rate 69 09/21/24 18:00 Respiratory Rate 24 H 09/21/24 16:41 Blood Pressure 170/103 H 09/21/24 16:41 Pulse Oximetry 97 09/21/24 16:41 Oxygen Delivery Room Air 09/21/24 16:00 MDM - Chest Pain Lab Data 09/21/24 08:28 09/21/24 08:28 Labs: Lab Results 09/21/24 09/21/24 Range/Units 08:28 11:14 WBC 10.1 H (4.5-10.0) K/mm3 RBC 5.22 (4.6-6.20) M/mm3 Hgb 13.1 L (14.0-18.0) g/dL Hct 43.9 (42.0-52.0) % MCV 84.1 (80-100) fl MCH 25.1 L (26-34) pg MCHC 29.8 L (32-36) g/dl RDW 15.2 H (11.5-14.5) % Plt Count 306 (150-375) k/mm3 MPV 10.7 H (7.4-10.4) fl Immature Gran % (Auto) 0.4 (0-0.5) % Neut % (Auto) 71.2 (45.5-73.1) % Lymph % (Auto) 14.6 L (18.3-44.2) % [place] % (Auto) 8.8 H (2.6-8.5) % Eos % (Auto) 4.5 H (0-4.4) % Baso % (Auto) 0.5 (0.2-1.2) % Lymph # (Auto) 1.48 (0.9-3.2) K/mm3 [place] # (Auto) 0.9 H (0.1-0.6) K/mm3 Eos # (Auto) 0.5 H (0-0.3) K/mm3 Baso # (Auto) 0.1 (0.0-0.1) K/mm3 Abs Immat Gran (auto) 0.04 H (0.00-0.031) K/mm3 Absolute Neuts (auto) 7.2 H (1.3-6.7) K/mm3 Absolute Nucleated RBC 0.000 (0.0-0.012) K/mm3 Band Neutrophils % Not Reportable Nucleated RBC % 0.0 (0.0-0.2) % Platelet Estimate Adequate (Adequate) Hypochromasia 1+ Anisocytosis 1+ Target Cells 1+ Bianka Cells 1+ Schistocytes None seen PT 14.1 (11.1-14.7) Seconds INR 1.1 APTT 26.2 (22.3-36.8) Seconds Sodium 139 (137-145) mmol/L Potassium 3.4 (3.4-5.0) mmol/L Chloride 103 (98-107) mmol/L Carbon Dioxide 28 (22-30) mmol/L Anion Gap 8 (4-12) mmol/L BUN 19 (9-20) mg/dL Creatinine 0.87 (0.7-1.3) mg/dL Estim Creat Clear Calc 174 ml/min Estimated GFR > 60 (59 - ) Glucose 160 H (65-110) mg/dL Hemoglobin A1c Pending Calcium 9.0 (8.4-10.2) mg/dL Total Bilirubin 1.1 (0.2-1.3) mg/dL AST 23 (17-59) U/L ALT 24 (6-50) U/L Alkaline Phosphatase 75 (38-126) U/L Troponin I < 0.012 < 0.012 (0.000-0.034) ng/mL NT-Pro-B Natriuret Pep 1870 H (19.9-100) pg/mL Total Protein 7.0 (6.3-8.2) g/dL Albumin 4.2 (3.5-5.1) g/dL Lipase 33 (23-300) U/L Imaging Data Radiologist's impression: ITS Impressions Chest X-Ray 09/21/24 08:46 IMPRESSION: No focal infiltrate or effusion. Chest/Abdomen/Pelvis CTA 09/21/24 09:55 IMPRESSION: 1. Normal caliber aorta with no dissection or other acute cardiopulmonary disease. 2. Enlargement of the central pulmonary arteries consistent with pulmonary arterial hypertension. 3. Diffuse hepatic steatosis. 4. Mild edematous-appearing gallbladder wall thickening versus trace amount of pericholecystic fluid with no gallbladder dilation nor evident cholelithiasis on recent MRI/MRCP to suggest acute cholecystitis. Differential would include chronic cholecystitis, liver, heart, renal disease or other generalized edema forming states. Upper Quadrant Ultrasound 09/21/24 11:10 Impression: No significant abnormality seen. Critical Care Time Critical Care Time Critical Care Time: Yes Total Critical Care Time: 35 Discharge Plan Discharge Clinical Impression: Chest pain, Hypertension, uncontrolled Patient Disposition: Still a Patient Condition: Stable
--- NOTE | 2024-09-21 11:06 | ECG_ITS ---
Test Date: 2024-09-21 11:18:17 Measurements Intervals [place] Rate: 75 P: 36 ME: 175 QRS: 2 QRSD: 101 T: 46 QT: 446 QTc: 500 Interpretive Statements SINUS RHYTHM POSSIBLE LEFT ATRIAL ENLARGEMENT [-0.1mV P-WAVE IN V1/V2] NONSPECIFIC ST AND T-WAVE ABNORMALITY PROLONGED QT INTERVAL Compared to ECG 09/21/2024 08:05:44 Prolonged QT interval now present Electronically Signed On 09-21-2024 15:09:03 CDT by Lima Garland M.D.
[2024-09-21 11:45] LABS: Troponin I < 0.012 ng/mL (0.000-0.034)
--- NOTE | 2024-09-21 13:04 | PC.NURSE ---
Provider aware of patient's BP
[2024-09-21] MEDS: hydrALAZINE HCL 20 MG/ML VIAL 10 MG IV PUSH ×2 (13:13→14:33)
--- NOTE | 2024-09-21 13:54 | PC.NURSE ---
Patient denies any chest pain, SOB, dizziness, or headache. Provider aware of patient's BP at this time. NO new orders.
--- NOTE | 2024-09-21 14:22 | ADMGEN ---
This patient, Daren Rome, was admitted to IMU Room 232-01. Patient/family oriented to hospital policies and general routines including ID bracelet, bed and alarms, visiting hours, pain management, procedures, bathroom and other care routines, personal items, smoking policy, room service/diet, and visiting hours. Information on how to activate the Rapid Response Team has been discussed. Patient/Family are encouraged to report perceived risks to care and to ask questions if they do not understand what they are told or what they should do.
--- NOTE | 2024-09-21 15:15 | PM.IMHP ---
H&P: HPI History of Present Illness Date/Time: 09/21/24 15:45 Chief Complaint: Chest pain. Narrative: This is a 39-year-old male with history of cerebrovascular accident and myocardial infarction due to hypertensive disease, historically poorly controlled hypertension, type 2 diabetes mellitus, untreated obstructive sleep apnea, pancreatitis, hepatic steatosis, morbid obesity, and anxiety who presented to the emergency department via EMS for evaluation of chest pain. His symptoms began about 3 hours prior to arrival while taking a shower. He describes a pushing sensation just left of the mid sternum radiating somewhat into the left arm and hand. He felt a bit short of breath with that and endorses nausea as well. The pain is not reproducible on palpation. He has not noticed any significant aggravating factors but reports that a GI cocktail helped immensely. With further questioning he reports having significant GERD symptoms, worse recently, for which he has been taking Tums often. He also endorses bloating and belching and frequent epigastric discomfort. He denies syncope, near syncope, pleuritic pain, palpitations, cough, hematemesis, melena, hematochezia, and calf pain. Of note the patient's nurse called me to report that the patient has been feeling increasingly depressed. He has no thoughts of suicide and no plan but is asking to see a psychiatrist while in the hospital. In the ED: Blood pressure was 212/139 on arrival. Labs were significant for WBC count of 10.1, hemoglobin 13.1, glucose 160, troponin less than 0.012, proBNP 1870. CT of the chest, abdomen, and pelvis showed no acute findings but did note enlargement of the central pulmonary arteries consistent with pulmonary arterial hypertension, diffuse hepatic steatosis, and mild edematous appearing gallbladder wall thickening versus trace amount of pericholecystic fluid. Right upper quadrant ultrasound was normal. EKG showed sinus rhythm with nonspecific ST T-wave abnormalities. He was given a GI cocktail and hydralazine 10 mg IV and he is being admitted in this setting for close monitoring. Review of Systems Review of Systems: 12 systems were reviewed and are negative except for as per HPI. FORMERLY [facility], [facility] Past Medical History Medical History Type 2 diabetes mellitus Pancreatitis Transient ischemic attack Hepatic steatosis (02/2024) Tobacco abuse disorder Asthma Kidney stones Morbid obesity with BMI of 40.0-44.9, adult Obstructive sleep apnea Patient never went and got a CPAP because he knew he could not afford it? Hypertensive cardiomyopathy Hypertensive heart disease Coronary artery disease Surgical History Surgical History Status post open reduction with internal fixation of fracture Left orbital fracture History of cardiac catheterization Family History Family History Mother Diabetes mellitus Social History Social History (Updated 09/21/24 @ 15:25 by Ana Paula Crain PA-C) Social History: Surrogate medical decision maker: Zahida Rome, mother. Code status: Full code. Smoking packs per day: 0.5 Smoking cigarettes per day: 10.0 Years smoked: 23 Smoking pack-years: 11.50 Smoking status: Current every day smoker Alcohol intake: never Drinks per week: 1 Substance use: never Do You Feel Safe in your Home?: Yes Lack of Transportation: YES Lack of Food: Often True Current Housing: I Do Not Have Housing Concerned About Future Housing: YES Difficulty Paying Gas/Electric Bills: YES Difficulty Paying for Meds: YES Currently Unemployed: YES Education: Bachelor's Degree Difficulty w/ Childcare or Family Care: No Additional living arrangements comments: Single. Moved to the area from [place] in mid 2023. Additional occupation/education comments: [employer] for 6 years. 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: No Meds Home Medications and Allergies Home Medications ?Medication ?Instructions ?Recorded ?Confirmed ?Type aspirin 81 mg tablet,delayed 81 mg PO DAILY 03/23/24 09/21/24 History release (Adult Low Dose Aspirin) furosemide 40 mg tablet 40 mg PO DAILY 03/23/24 09/21/24 History carvedilol 25 mg tablet (Coreg) 25 mg PO BIDWM #90 tabs 03/28/24 09/21/24 Rx lisinopril 10 mg tablet 20 mg (2 x 10 mg) PO DAILY #90 tabs 03/28/24 09/21/24 Rx metformin 500 mg tablet,extended 500 mg PO BID #90 tabs 03/28/24 09/21/24 Rx release 24 hr hydroxyzine HCl 25 mg tablet 25 mg PO TID PRN anxiety 05/30/25 05/30/25 History trazodone 100 mg tablet 100 mg PO HS PRN insomnia 09/21/24 09/21/24 History Allergies Allergy/AdvReac Type Severity Reaction Status Date / Time cat dander Allergy Itching Verified 09/21/24 08:40 RAGWEED Allergy Mild Itching Uncoded 09/21/24 08:40 Vital Signs Vital Signs - 24 hr 09/21/24 07:59 09/21/24 10:23 09/21/24 12:56 Temperature 97.7 F Pulse Rate 92 72 68 Respiratory Rate 17 18 18 Blood Pressure 212/139 H 198/128 H 187/119 H Pulse Oximetry 98 95 97 Oxygen Delivery Room Air 09/21/24 13:55 09/21/24 14:29 Temperature 97.7 F Pulse Rate 73 83 Respiratory Rate 18 22 H Blood Pressure 177/111 H 165/119 H Pulse Oximetry 100 98 Oxygen Delivery Exam Narrative: General: Well-developed, nontoxic-appearing male sitting up in bed in no acute distress. Weight: 174.5 kg. BMI: 42.3. HEENT: PERRL, EOMI. Sclera anicteric. Oral mucosa moist. Crowded oropharynx. Neck: Supple. Limited due to neck circumference. Respiratory: Lungs are clear to auscultation bilaterally. Cardiovascular: Regular rate and rhythm with S1-S2. No murmur, rub, or gallop. Gastrointestinal: Abdomen is soft, obese, nontender, and nondistended with positive bowel sounds. Skin: Warm and dry. No rash or lesions on limited exam. Extremities: No cyanosis or clubbing. 1+ bilateral lower extremity edema. No palpable knots or cords. Neurological: Alert. Cranial nerves 2-12 are grossly intact. No gross focal deficits to casual conversation. Psychiatric: Pleasant and cooperative with appropriate mood and depressed affect. H&P: Results Labs Labs: Short CBC 09/21/24 Range/Units 08:28 WBC 10.1 H (4.5-10.0) K/mm3 Hgb 13.1 L (14.0-18.0) g/dL Hct 43.9 (42.0-52.0) % Plt Count 306 (150-375) k/mm3 BMP 09/21/24 08:28 Sodium 139 Potassium 3.4 Chloride 103 Carbon Dioxide 28 BUN 19 Creatinine 0.87 Glucose 160 H Calcium 9.0 Cardiac Enzymes 09/21/24 09/21/24 Range/Units 08:28 11:14 Troponin I < 0.012 < 0.012 (0.000-0.034) ng/mL Liver Function 09/21/24 Range/Units 08:28 Total Bilirubin 1.1 (0.2-1.3) mg/dL AST 23 (17-59) U/L ALT 24 (6-50) U/L Alkaline Phosphatase 75 (38-126) U/L Albumin 4.2 (3.5-5.1) g/dL Imaging Chest X-Ray 09/21/24 08:46 IMPRESSION: 1. No focal infiltrate or effusion. Chest/Abdomen/Pelvis CTA 09/21/24 09:55 IMPRESSION: 1. Normal caliber aorta with no dissection or other acute cardiopulmonary disease. 2. Enlargement of the central pulmonary arteries consistent with pulmonary arterial hypertension. 3. Diffuse hepatic steatosis. 4. Mild edematous-appearing gallbladder wall thickening versus trace amount of pericholecystic fluid with no gallbladder dilation nor evident cholelithiasis on recent MRI/MRCP to suggest acute cholecystitis. Differential would include chronic cholecystitis, liver, heart, renal disease or other generalized edema forming states. Upper Quadrant Ultrasound 09/21/24 11:10 Impression: 1. No significant abnormality seen. Assessment and Plan Assessment and plan (1) Uncontrolled hypertension: Code(s): I10 - Essential (primary) hypertension Status: Acute (2) Chest pain: Code(s): R07.9 - Chest pain, unspecified Status: Acute (3) Enlarged pulmonary artery: Code(s): I28.8 - Other diseases of pulmonary vessels Status: Acute (4) Type 2 diabetes mellitus: Qualifiers: Diabetes mellitus complication status: with hyperglycemia Diabetes mellitus group home insulin use: without group home use Qualified Code(s): E11.65 - Type 2 diabetes mellitus with hyperglycemia Code(s): E11.9 - Type 2 diabetes mellitus without complications Status: Acute (5) Obstructive sleep apnea: Code(s): G47.33 - Obstructive sleep apnea (adult) (pediatric) Status: Acute (6) Tobacco abuse disorder: Code(s): Z72.0 - Tobacco use Status: Acute (7) Depression: Code(s): F32.A - Depression, unspecified Status: Acute Plan The patient presented to the emergency department with complaints of a pushing sensation to the left of the sternum associated with shortness of breath and sweats as detailed in HPI. Labs, imaging, EKG, and all reports were personally reviewed. Initial EKG did not show any concerning ST segment changes and initial troponin was within normal limits. Given his history and underlying risk factors, he is being admitted to the IMU for close monitoring and to rule out acute coronary syndrome. Chest pain could be due to uncontrolled hypertension however he states that his typical blood pressure is 160/110 and higher. Pancreatitis and cholecystitis have been ruled out. Cannot rule out underlying esophagitis, gastritis, or even peptic ulcer and I will ask GI to see him in consultation for possible upper endoscopy. He has been started on a PPI for now. Analgesics and antiemetics are available as needed. Continue hydralazine p.r.n.. He will likely need adjustments to his antihypertensive which can be made after we see how he trends overnight and into tomorrow. There are findings of pulmonary arterial hypertension on CT and an echocardiogram is pending. Check fasting lipids in a.m.. Initiate sliding scale insulin, Accu-Cheks, and hypoglycemic protocol. Hemoglobin A1c is pending. He needs to be compliant with his CPAP and stop smoking immediately. In regards to his depression, he is requesting to see a psychiatrist however I believe that the protocol is to consult crisis prior to that. He is not actively suicidal and has no plans. His home medications will be reviewed and resumed as appropriate. Findings and treatment plan were discussed with the patient. Questions were solicited and answered to satisfaction. The patient's medical management will be taken over by the hospitalist team in a.m. Quality VTE Prophylaxis VTE prophylaxis: pharmacologic ordered The patient has been admitted under observation status. Hospitalist MIPS Advance Care Plan I have confirmed that the patient's Advanced Care Plan is present, code status is documented, or surrogate decision maker is listed in patient medical record.: Yes Medication Reconciliation I have utilized all available resources to obtain, update and review the patients current medications (includes all prescriptions, OTC, herbals, cannabis, and nutritional supplements).: Yes
[2024-09-21] MEDS: hydrOXYzine HCL 25 MG TABLET PO (16:23)
[2024-09-21] MEDS: carvediloL 25 MG TABLET PO (16:23)
--- NOTE | 2024-09-21 18:09 | PCRCNOTE ---
Patient stated that he does not wear a CPAP at home and that he doesn't want one while here.
[2024-09-21 20:30] LABS: Hemoglobin A1C 7.4 % (<5.7)
[2024-09-21] MEDS: traZODone HCL 50 MG TABLET 100 MG PO (21:15)
[2024-09-21 21:17] LABS: Glucose Point of Care 153 mg/dl (65-105)
[2024-09-21] MEDS: MORPHINE SULFATE (*CRX) 4 MG/ML INJ IV PUSH (21:30)
[2024-09-22] VITALS (16 sets, daily range): BP systolic 157–178; BP diastolic 88–116; PULSE 53–82; RESP 18–24; TEMP 36.1–36.6; O2SAT 94–99
--- NOTE | 2024-09-22 | ECHO_ITS ---
Patient Info Name: Daren Rome Age: 39 years : 1985 Gender: Male Ht: 80 in Wt: 384 lbs BSA: 3.20 m2 HR: 65 bpm BP: 178 / 116 mmHg Technical Quality: Fair Exam Date: 09/22/2024 9:19 AM Patient Status: I Admit Date: 09/21/2024 Exam Type: CA echo dop color flow w con Complete two-dimensional, color flow and Doppler transthoracic echocardiogram is performed with contrast to opacify the left ventricle and to improve the deliniation of the left ventricle endocardial borders. Staff Referring Physician: Nikolas Webb Price Checker: Hannah Carrasco Attending Provider: Nikolas Webb Contrast/Agitated Saline Contrast/Ag. Saline: Definity Amount: 3.00 ml Existing IV Access: Yes IV Access Condition: patent with no signs of infiltration Summary 1. Left ventricular chamber dimension is normal. 2. Left ventricular systolic function is mildly reduced, estimated at 45-50. 3. There is moderate concentric increased left ventricular wall thickness. 4. The left ventricular diastolic function is grade IV diastolic dysfunction. 5. Definity contrast administered improved wall motion interpretation. 6. E/e' 18 is elevated. 7. Right ventricular chamber dimension is moderately enlarged. 8. Right ventricular systolic function is mildly reduced. 9. Left atrial chamber dimension is severely enlarged. 10. Right atrial chamber dimension is moderately enlarged. 11. There is trace aortic valve regurgitation. 12. There is severe mitral valve regurgitation. 13. There is moderate tricuspid valve regurgitation. 14. There is severe tricuspid valve calcification. 15. There is trace pulmonic regurgitation. Left Ventricle E/e' 18 is elevated. Left ventricular chamber dimension is normal. Left ventricular systolic function is mildly reduced, estimated at 45-50. There is moderate concentric increased left ventricular wall thickness. The left ventricular diastolic function is grade IV diastolic dysfunction. Definity contrast administered improved wall motion interpretation. Right Ventricle Right ventricular chamber dimension is moderately enlarged. Right ventricular systolic function is mildly reduced. Left Atria Left atrial chamber dimension is severely enlarged. Right Atria Right atrial chamber dimension is moderately enlarged. Aortic Valve The aortic valve is trileaflet. There is no aortic valve stenosis. There is trace aortic valve regurgitation. Pulmonic Valve There is trace pulmonic regurgitation. Mitral Valve There is no mitral valve stenosis. There is severe mitral valve regurgitation. Tricuspid Valve There is moderate tricuspid valve regurgitation. There is severe tricuspid valve calcification. Pericardium/Pleural There is no pericardial effusion. Inferior Vena Cava Normal inferior vena cava with >50% collapse upon inspiration consistent with normal right atrial pressure, 5 mmHg. Aorta The aortic root size at the sinus of Valsalva is normal. Left Ventricular Outflow Tract Name Value Normal LVOT 2D LVOT Diameter 2.5 cm LVOT Doppler LVOT Peak Velocity 90 cm/s LVOT Peak Gradient 3 mmHg LVOT Mean Gradient 2 mmHg LVOT VTI 19 cm LVOT VTI/AV VTI Ratio 0.7 LVOT Stroke Volume 92 ml LVOT CO 19.9 l/min LVOT CI 6.2 l/min/m2 Pulmonic Valve Name Value Normal PV Doppler PV Peak Velocity 102 cm/s PV Peak Gradient 4 mmHg Mitral Valve Name Value Normal MV Doppler MV Peak Gradient 13 mmHg MV Mean Gradient 4 mmHg MV Area (Cont Eq VTI) 2.2 cm2 MV Diastolic Function MV E Peak Velocity 129 cm/s MV A Peak Velocity 33 cm/s MV E/A 4.0 MV Decel Time (PW) 214 ms MV Annular TDI MV E/e' (Septal) 20.4 MV E/e' (Lateral) 16.9 MV E/e' (Average) 18.6 Tricuspid Valve Name Value Normal TV Regurgitation Doppler TR Peak Velocity 373 cm/s TR Peak Gradient 56 mmHg Estimated PAP/RSVP RA Pressure 5 mmHg <=5 PA Systolic Pressure 61 mmHg <36 RV Systolic Pressure 61 mmHg <36 TV Annular TDI TV Lateral Rebecca s' Velocity 13.5 cm/s >=9.5 Aorta Name Value Normal Ascending Aorta Ao Root Diameter (MM) 3.9 cm Ao Root Diam Index (MM) 1.2 cm/m2 Aortic Valve Name Value Normal AV Doppler AV Peak Velocity 136 cm/s AV Peak Gradient 7 mmHg AV Mean Gradient 5 mmHg AV VTI 29 cm AV Area (Cont Eq VTI) 3.2 cm2 >=3.0 AV Area (Cont Eq Jaime) 3.2 cm2 AV DI (Jaime) 0.67 AV Regurgitation 2D LVOT Area 4.7 cm2 Ventricles Name Value Normal LV Dimensions 2D/MM IVS Diastolic Thickness (2D) 1.6 cm 0.6-1.0 LVID Diastole (2D) 6.5 cm 4.2-5.8 LVIW Diastolic Thickness (2D) 1.5 cm 0.6-1.0 LVID Systole (2D) 5.0 cm 2.5-4.0 LVOT Diameter 2.5 cm LV Mass (2D Cubed) 502.52 g 88.00-224.00 LV Mass Index (2D Cubed) 157 g/m2 49-115 Relative Wall Thickness (2D) 0.46 <=0.42 LV Fractional Shortening/Ejection Fraction 2D/MM LV Fractional Shortening (2D) 23 % 25-43 LV EF (2D Teichholz) 46 % LV Diastolic Volume (4C MOD) 181 ml LV EF (4C MOD) 44 % LV Diastolic Volume (2C MOD) 187 ml LV EF (2C MOD) 45 % LV Diastolic Volume (BP MOD) 186 ml 62-150 LV Diastolic Volume Index (BP MOD) 58 ml/m2 34-74 LV Systolic Volume (BP MOD) 107 ml 21-61 LV Systolic Volume Index (BP MOD) 34 ml/m2 11-31 LV EF (BP MOD) 42 % 52-72 LV Diastolic Length (4C) 9.5 cm LV Systolic Length (4C) 8.0 cm LV Stroke Volume (4C MOD) 79 ml RV Dimensions 2D/MM RVID Diastole (2D) 5.4 cm 2.1-3.5 Atria Name Value Normal LA Dimensions LA Dimension (MM) 5.4 cm 3.0-4.0 LA Volume (4C A-L) 176 ml LA Volume (BP A-L) 190 ml RA Dimensions RA Systolic [place] Length (4C) 6.2 cm 2.1-2.7 RA Area (4C) 27.0 cm2 <=18.0 Report Signatures
[2024-09-22] MEDS: hydrALAZINE HCL 20 MG/ML VIAL 10 MG IV PUSH (04:35)
[2024-09-22] MEDS: HYDROcodone/acetaminophen (*CRX) 5-325 MG TABLET 1 TAB PO ×3 (04:37→20:32)
[2024-09-22] MEDS: hydrOXYzine HCL 25 MG TABLET PO ×2 (04:38→20:32)
[2024-09-22 04:56] LABS: Hematocrit 42.5 % (42.0-52.0); Hemoglobin 12.6 g/dL (14.0-18.0); Mean Corpuscular HGB Conc 29.6 g/dl (32-36); Mean Corpuscular Hemoglobin 25.3 pg (26-34); Mean Corpuscular Volume 85.3 fl (80-100); Mean Platelet Volume 10.5 fl (7.4-10.4); Platelet Count Result 278 k/mm3 (150-375); Red Blood Count 4.98 M/mm3 (4.6-6.20); Red Cell Distribution Width 15.4 % (11.5-14.5); White Blood Count 6.9 K/mm3 (4.5-10.0)
[2024-09-22 05:05] LABS: Anion Gap 6 mmol/L (4-12); Blood Urea Nitrogen 20 mg/dL (9-20); Calcium 9.1 mg/dL (8.4-10.2); Carbon Dioxide 29 mmol/L (22-30); Chloride 104 mmol/L (98-107); Cholesterol 123 mg/dL (0-200); Estimated CRCL calculation 155 ml/min; Estimated Glomerular Filt Rate > 60; Glucose 128 mg/dL (65-110); HDL Direct 23 mg/dL; Magnesium 2.3 mg/dL (1.6-2.3); Potassium 3.5 mmol/L (3.4-5.0); Sodium 139 mmol/L (137-145); Triglycerides 86 mg/dL (<150)
[2024-09-22 05:16] LABS: LDL Cholesterol Direct 72 mg/dL
[2024-09-22 08:20] LABS: Glucose Point of Care 140 mg/dl (65-105)
[2024-09-22] MEDS: FUROSEMIDE 40 MG TABLET PO (08:34)
[2024-09-22] MEDS: carvediloL 25 MG TABLET PO ×2 (08:34→16:30)
[2024-09-22] MEDS: PANTOPRAZOLE 40 MG TABLET PO (08:34)
[2024-09-22] MEDS: ENOXAPARIN 40 MG/0.4 ML SYRINGE SUB-Q (08:34)
[2024-09-22] MEDS: lisinopriL 20 MG TABLET PO (08:34)
[2024-09-22] MEDS: ASPIRIN 81 MG ENTERIC TABLET PO (08:35)
--- NOTE | 2024-09-22 08:58 | PM.IMPN ---
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 insulin use: without chcf use Diabetes mellitus complication status: with hyperglycemia Qualified Code(s): E11.65 - Type 2 diabetes mellitus with hyperglycemia Code(s): E11.9 - Type 2 diabetes mellitus without complications Status: Acute (5) Obstructive sleep apnea: Code(s): G47.33 - Obstructive sleep apnea (adult) (pediatric) Status: Acute (6) Tobacco abuse disorder: Code(s): Z72.0 - Tobacco use Status: Acute (7) Depression: Code(s): F32.A - Depression, unspecified Status: Acute Plan This is a 39-year-old male with history of cerebrovascular accident and myocardial infarction due to hypertensive disease, historically poorly controlled hypertension, type 2 diabetes mellitus, untreated obstructive sleep apnea, pancreatitis, hepatic steatosis, morbid obesity, and anxiety who presented to the emergency department via EMS for evaluation of chest pain. His symptoms began about 3 hours prior to arrival while taking a shower. He describes a pushing sensation just left of the mid sternum radiating somewhat into the left arm and hand. He felt a bit short of breath with that and endorses nausea as well. The pain is not reproducible on palpation. He has not noticed any significant aggravating factors but reports that a GI cocktail helped immensely. With further questioning he reports having significant GERD symptoms, worse recently, for which he has been taking Tums often. He also endorses bloating and belching and frequent epigastric discomfort. He denies syncope, near syncope, pleuritic pain, palpitations, cough, hematemesis, melena, hematochezia, and calf pain. Of note the patient's nurse called me to report that the patient has been feeling increasingly depressed. He has no thoughts of suicide and no plan but is asking to see a psychiatrist while in the hospital. In the ED: Blood pressure was 212/139 on arrival. Labs were significant for WBC count of 10.1, hemoglobin 13.1, glucose 160, troponin less than 0.012, proBNP 1870. CT of the chest, abdomen, and pelvis showed no acute findings but did note enlargement of the central pulmonary arteries consistent with pulmonary arterial hypertension, diffuse hepatic steatosis, and mild edematous appearing gallbladder wall thickening versus trace amount of pericholecystic fluid. Right upper quadrant ultrasound was normal. EKG showed sinus rhythm with nonspecific ST T-wave abnormalities. He was given a GI cocktail and hydralazine 10 mg IV and he is being admitted in this setting for close monitoring. Accelerated hypertension improved with p.r.n. hydralazine. Currently on lisinopril 20 mg carvedilol 25 mg b.i.d. Lasix 40 mg daily. Amlodipine was discontinued in the past due to leg swelling. Hydralazine was added which had helped. Will add back hydralazine. Does not seem to be on this medication anymore. His Atypical chest pain troponin trend negative echocardiogram pending. Suspected GI/GERD related. GI has been consulted. Right upper quadrant pain/discomfort. CTA showed some mildly edematous appearing gallbladder wall thickening versus trace amount of pericholecystic fluid with no gallbladder dilation not evident cholelithiasis on recent MRI/MRCP. Follow-up right upper quadrant ultrasound was unremarkable. Pulmonary arterial hypertension: Echo pending Type 2 diabetes on metformin Anxiety depression: Follow up with Psychiatry as outpatient basis. Crisis team to see prior to discharge. DVT prophylaxis Lovenox code status full code Subjective Date/time seen: 09/22/24 08:58 Interval history: Feels better. No chest pain. No shortness of breath. Review of Systems Review of Systems: All systems reviewed & are unremarkable except as noted in HPI and below Exam Narrative: General: Well-developed, nontoxic-appearing male sitting up in bed in no acute distress. HEENT: PERRL, EOMI. Sclera anicteric. Oral mucosa moist. Crowded oropharynx. Neck: Supple. Limited due to neck circumference. Respiratory: Lungs are clear to auscultation bilaterally. Cardiovascular: Regular rate and rhythm with S1-S2. No murmur, rub, or gallop. Gastrointestinal: Abdomen is soft, obese, nontender, and nondistended with positive bowel sounds. Skin: Warm and dry. No rash or lesions on limited exam. Extremities: No cyanosis or clubbing. 1+ bilateral lower extremity edema. No palpable knots or cords. Neurological: Alert. Cranial nerves 2-12 are grossly intact. No gross focal deficits to casual conversation. Psychiatric: Pleasant and cooperative with appropriate mood and depressed affect. Objective Data Vital Signs Vital Signs: Vital Signs - 24 hr 09/21/24 10:23 09/21/24 12:56 09/21/24 13:55 Temperature Pulse Rate 72 68 73 Respiratory Rate 18 18 18 Blood Pressure 198/128 H 187/119 H 177/111 H Pulse Oximetry 95 97 100 Oxygen Delivery 09/21/24 14:29 09/21/24 16:00 09/21/24 16:00 Temperature 97.7 F Pulse Rate 83 88 Respiratory Rate 22 H Blood Pressure 165/119 H Pulse Oximetry 98 97 Oxygen Delivery Room Air 09/21/24 16:23 09/21/24 16:41 09/21/24 18:00 Temperature 97.3 F L Pulse Rate 88 88 69 Respiratory Rate 24 H Blood Pressure 170/103 H Pulse Oximetry 97 Oxygen Delivery 09/21/24 20:00 09/21/24 20:00 09/21/24 21:02 Temperature 97.6 F Pulse Rate 73 61 73 Respiratory Rate 24 H 24 H Blood Pressure 157/113 H Pulse Oximetry 97 Oxygen Delivery Room Air 09/21/24 22:00 09/21/24 22:25 09/21/24 23:41 Temperature 97.7 F Pulse Rate 70 68 Respiratory Rate 24 H Blood Pressure 153/104 H Pulse Oximetry 97 97 Oxygen Delivery Room Air 09/21/24 23:50 09/22/24 00:00 09/22/24 01:50 Temperature Pulse Rate 68 67 68 Respiratory Rate 24 H Blood Pressure Pulse Oximetry 97 Oxygen Delivery Room Air 09/22/24 04:00 09/22/24 04:00 09/22/24 04:00 Temperature 97.8 F Pulse Rate 73 75 75 Respiratory Rate 24 H 24 H Blood Pressure 178/116 H Pulse Oximetry 94 94 Oxygen Delivery Room Air 09/22/24 05:16 09/22/24 08:00 09/22/24 08:34 Temperature Pulse Rate 67 68 Respiratory Rate Blood Pressure Pulse Oximetry 97 Oxygen Delivery Room Air 09/22/24 08:34 Temperature 97.5 F L Pulse Rate 62 Respiratory Rate 18 Blood Pressure 157/97 H Pulse Oximetry 97 Oxygen Delivery Intake/Output Intake/Output: Intake & Output 09/19/24 09/20/24 09/21/24 09/22/24 23:59 23:59 23:59 23:59 Intake Total 780 Output Total 200 Balance 780 -200 Meds/Results Medications: Active Medications Generic Name Dose Route Start Last Admin Trade Name Freq PRN Reason Stop Dose Admin Acetaminophen 650 mg 09/21/24 13:07 Acetaminophen 325 Mg Tablet PO Q4H PRN Mild Pain (1-3) or Fever Hydrocodone Bitart/Acetaminophen 1 tab 09/21/24 13:07 09/22/24 04:37 Hydrocodone/Acetaminophen (*Crx) 5-325 Mg Tablet PO 1 tab Q4H PRN Administration Pain Rated 4-6 Albuterol 2 puff 09/21/24 15:54 Albuterol Sulfate (*Sp) Aerosol 1 Puff INHALATION Q6HRT PRN Shortness Of Breath Aspirin 81 mg 09/22/24 09:00 09/22/24 08:35 Aspirin 81 Mg Enteric Tablet PO 81 mg DAILY VIKY Administration Carvedilol 25 mg 09/21/24 17:00 09/22/24 08:34 Carvedilol 25 Mg Tablet PO 25 mg BIDWM VIKY Administration Dextrose 12.5 gm 09/21/24 15:31 Dextrose 50% 25 Gm/50 Ml Syringe IV PUSH PRN PRN Hypoglycemia Protocol Enoxaparin Sodium 40 mg 09/22/24 09:00 09/22/24 08:34 Enoxaparin 40 Mg/0.4 Ml Syringe SUB-Q 40 mg DAILY VIKY Administration Furosemide 40 mg 09/22/24 09:00 09/22/24 08:34 Furosemide 40 Mg Tablet PO 40 mg DAILY VIKY Administration Glucagon 1 mg 09/21/24 15:31 Glucagon For Inj 1 Mg Vial IM PRN PRN Hypoglycemia Protocol Glucose 15 gm 09/21/24 15:31 Glucose Oral Gel 15 Gm Of Glucse In 37.5 Gm Tube PO PRN PRN Hypoglycemia Protocol Hydralazine HCl 10 mg 09/21/24 13:07 09/22/24 04:35 Hydralazine Hcl 20 Mg/Ml Vial IV PUSH 10 mg Q8H PRN Administration SBP > 165 or DBP > 105 Hydroxyzine HCl 25 mg 09/21/24 15:44 09/22/24 04:38 Hydroxyzine Hcl 25 Mg Tablet PO 25 mg TID PRN Administration anxiety Dextrose 1,000 mls @ 100 mls/hr 09/21/24 15:31 Dextrose 5% 1,000 Ml IVPB PRN PRN Hypoglycemia Protocol Insulin Aspart 3 - 6 units 09/21/24 17:00 09/22/24 08:32 Insulin Aspart (*Bkc) 100 Units/Ml SUB-Q Not Given TIDWM VIKY Protocol Insulin Aspart 1 - 3 units 09/21/24 21:00 09/21/24 21:15 Insulin Aspart (*Bkc) 100 Units/Ml SUB-Q Not Given HS VIKY Protocol Lisinopril 20 mg 09/22/24 09:00 09/22/24 08:34 Lisinopril 20 Mg Tablet PO 20 mg DAILY VIKY Administration Morphine Sulfate 4 mg 09/21/24 13:07 09/21/24 21:30 Morphine Sulfate (*Crx) 4 Mg/Ml Inj IV PUSH 4 mg Q2H PRN Administration Pain Rated 7-10 Ondansetron HCl 4 mg 09/21/24 13:07 09/21/24 21:39 Ondansetron Inj 4 Mg/2 Ml Vial IV PUSH 4 mg Q4H PRN Administration Nausea Pantoprazole Sodium 40 mg 09/22/24 09:00 09/22/24 08:34 Pantoprazole 40 Mg Tablet PO 40 mg QAM VIKY Administration Perflutren Lipid Microsphere 0 ml 09/21/24 15:31 Perflutren Lipid Microspheres 1.5 Ml Vial Diluted To 10 Ml Total Volume IV PUSH 09/24/24 15:31 ONCE PRN adequate visualization Protocol Trazodone HCl 100 mg 09/21/24 15:44 09/21/24 21:15 Trazodone Hcl 50 Mg Tablet PO 100 mg HS PRN Administration insomnia Radiology Results: ITS Impressions Chest X-Ray 09/21/24 08:46 IMPRESSION: No focal infiltrate or effusion. Chest/Abdomen/Pelvis CTA 09/21/24 09:55 IMPRESSION: 1. Normal caliber aorta with no dissection or other acute cardiopulmonary disease. 2. Enlargement of the central pulmonary arteries consistent with pulmonary arterial hypertension. 3. Diffuse hepatic steatosis. 4. Mild edematous-appearing gallbladder wall thickening versus trace amount of pericholecystic fluid with no gallbladder dilation nor evident cholelithiasis on recent MRI/MRCP to suggest acute cholecystitis. Differential would include chronic cholecystitis, liver, heart, renal disease or other generalized edema forming states. Upper Quadrant Ultrasound 09/21/24 11:10 Impression: No significant abnormality seen. Labs Labs: Laboratory Results - last 24 hr 09/21/24 09/21/24 09/21/24 08:28 11:14 21:15 WBC RBC Hgb Hct MCV MCH MCHC RDW Plt Count MPV Sodium Potassium Chloride Carbon Dioxide Anion Gap BUN Creatinine Estim Creat Clear Calc Estimated GFR Glucose POC Capillary Glucose 153 H Hemoglobin A1c 7.4 H Calcium Magnesium Troponin I < 0.012 Triglycerides Cholesterol LDL Cholesterol Direct HDL Direct 09/22/24 09/22/24 04:29 08:14 WBC 6.9 RBC 4.98 Hgb 12.6 L Hct 42.5 MCV 85.3 MCH 25.3 L MCHC 29.6 L RDW 15.4 H Plt Count 278 MPV 10.5 H Sodium 139 Potassium 3.5 Chloride 104 Carbon Dioxide 29 Anion Gap 6 BUN 20 Creatinine 1.00 Estim Creat Clear Calc 155 Estimated GFR > 60 Glucose 128 H POC Capillary Glucose 140 H Hemoglobin A1c Calcium 9.1 Magnesium 2.3 Troponin I Triglycerides 86 Cholesterol 123 LDL Cholesterol Direct 72 HDL Direct 23
[2024-09-22] MEDS: hydrALAZINE HCL 25 MG TABLET PO ×4 (10:10→20:32)
[2024-09-22] MEDS: PERFLUTREN LIPID MICROSPHERES 1.5 ML VIAL DILUTED TO 10 ML TOTAL VOLUME IV PUSH (10:26)
--- NOTE | 2024-09-22 10:27 | IVDEFINITY ---
Prior to administration of IV Definity the patient was educated on the risks and benefits of the imaging enhancing agent including potential adverse side effects. The patient verbalized understanding. Allergies were verified. No exclusion criteria were identified and at least one of the following inclusion criteria were met: 1) physician request, 2) patient technically difficult to image (per the [place] [employer]chocardi[employer] guidelines of two or more segments not discernable within the apical view), or 3) questionable left ventricular function. ?
--- NOTE | 2024-09-22 10:38 | PC.NURSE ---
Pt reports 6/10 headache localized behind left eye. States It feels like someone is stabbing me behind my left eye. Headache began abruptly after receiving contrast for echo. Reports associated blurred vision to both eyes. BP 164/104. PRN [place] given. Dr. Webb made aware. New orders for HCT.
[2024-09-22 11:49] LABS: Glucose Point of Care 149 mg/dl (65-105)
--- NOTE | 2024-09-22 12:26 | P.CONGI_ITS ---
Assessment and Plan Assessment and plan (1) Non-cardiac chest pain: Code(s): R07.89 - Other chest pain Status: Acute Assessment and Plan: had some epigastric pain but now resolved, cardiac work up negative if he goes home then we can set up EGD as outpatient since never had one no pancreatitis this time (normal liver enzymes and lipase)- he has been in the hospital previously with pancreatitis (2) Nausea: Code(s): R11.0 - Nausea Status: Acute Assessment and Plan: resolved (3) Uncontrolled hypertension: Code(s): I10 - Essential (primary) hypertension Status: Acute Assessment and Plan: by primary team (4) Hepatic steatosis: Onset Date: 02/2024 Code(s): K76.0 - Fatty (change of) liver, not elsewhere classified Status: Chronic Assessment and Plan: he can follow-up in office (5) Type 2 diabetes mellitus: Qualifiers: 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: without 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 use Diabetes mellitus complication status: with hyperglycemia Qualified Code(s): E11.65 - Type 2 diabetes mellitus with hyperglycemia Code(s): E11.9 - Type 2 diabetes mellitus without complications Status: Acute GI Consult Note Consult date/time: 09/22/24 12:26 Reason for consult: abdominal pain HPI: Daren Rome is a 39 year old male with history of cerebrovascular accident and myocardial infarction due to hypertensive disease,type 2 diabetes mellitus, hepatic steatosis, morbid obesity, previous hospitalization with pancreatitis and anxiety who came to the emergency department via EMS for evaluation of chest pain. This started 3 hours prior to arrival while taking a shower, pain describes as pushing sensation in chest and radiation into the left arm and hand and nausea. GI cocktail helped but also NTG and aspirin. Cardiac work up negative. He is back to his baseline and doing great. Also h/o GERD using tums but seldom, he is not using ppi and never had EGD. No weight loss, no h/o GIB. ER Labs WBC count of 10.1, hemoglobin 13.1, glucose 160, troponin less than 0.012, proBNP 1870. CT of the chest, abdomen, and pelvis showed no acute findings but did note enlargement of the central pulmonary arteries consistent with pulmonary arterial hypertension, diffuse hepatic steatosis, and mild edematous appearing gallbladder wall thickening versus trace amount of pericholecystic fluid. Right upper quadrant ultrasound was normal. Review of Systems 2 Constitutional: Constitutional: Denies headache(s) and Denies weakness Eyes: Eyes: Denies blurry vision ENT: Reports Normal hearing present, Denies headache(s) and Denies neck pain Cardiovascular: Cardiovascular: Reports chest pain Respiratory: Respiratory: Denies cough Gastrointestinal: Gastrointestinal: Reports abdominal pain Genitourinary: Genitourinary: Denies dysuria Musculoskeletal: Musculoskeletal: Denies neck pain Integumentary/Breasts: Skin/Breast: Denies dry skin Neurologic: Reports Normal hearing present, Denies headache(s) and Denies weakness Psychiatric: Psychiatric: Denies anxiety [facility] Past Medical History Medical History (Updated 09/22/24 @ 12:31 by Calos Adams MD) Nausea Non-cardiac chest pain Type 2 diabetes mellitus Pancreatitis Transient ischemic attack Hepatic steatosis (02/2024) Tobacco abuse disorder Asthma Kidney stones Morbid obesity with BMI of 40.0-44.9, adult Obstructive sleep apnea Patient never went and got a CPAP because he knew he could not afford it? Hypertensive cardiomyopathy Hypertensive heart disease Coronary artery disease Surgical History Surgical History Status post open reduction with internal fixation of fracture Left orbital fracture History of cardiac catheterization Family History Family History Mother Diabetes mellitus Social History Social History (Updated 09/21/24 @ 15:25 by Ana Paula Crain PA-C) Social History: Surrogate medical decision maker: Zahida Rome, mother. Code status: Full code. Smoking packs per day: 0.5 Smoking cigarettes per day: 10.0 Years smoked: 23 Smoking pack-years: 11.50 Smoking status: Current every day smoker Alcohol intake: never Drinks per week: 1 Substance use: never Do You Feel Safe in your Home?: Yes Lack of Transportation: YES Lack of Food: Often True Current Housing: I Do Not Have Housing Concerned About Future Housing: YES Difficulty Paying Gas/Electric Bills: YES Difficulty Paying for Meds: YES Currently Unemployed: YES Education: Bachelor's Degree Difficulty w/ Childcare or Family Care: No Additional living arrangements comments: Single. Moved to the area from [place] in mid 2023. Additional occupation/education comments: [email or web address] for 6 years. 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: No Meds Home Medications and Allergies Home Medications ?Medication ?Instructions ?Recorded ?Confirmed ?Type aspirin 81 mg tablet,delayed 81 mg PO DAILY 03/23/24 09/21/24 History release (Adult Low Dose Aspirin) furosemide 40 mg tablet 40 mg PO DAILY 03/23/24 09/21/24 History carvedilol 25 mg tablet (Coreg) 25 mg PO BIDWM #90 tabs 03/28/24 09/21/24 Rx lisinopril 10 mg tablet 20 mg (2 x 10 mg) PO DAILY #90 tabs 03/28/24 09/21/24 Rx metformin 500 mg tablet,extended 500 mg PO BID #90 tabs 03/28/24 09/21/24 Rx release 24 hr hydroxyzine HCl 25 mg tablet 25 mg PO TID PRN anxiety 09/21/24 09/21/24 History trazodone 100 mg tablet 100 mg PO HS PRN insomnia 09/21/24 09/21/24 History Allergies Allergy/AdvReac Type Severity Reaction Status Date / Time cat dander Allergy Itching Verified 09/21/24 08:40 RAGWEED Allergy Mild Itching Uncoded 09/21/24 08:40 Vital Signs Vital Signs - 24 hr 09/21/24 12:56 09/21/24 13:55 09/21/24 14:29 Temperature 97.7 F Pulse Rate 68 73 83 Respiratory Rate 18 18 22 H Blood Pressure 187/119 H 177/111 H 165/119 H Pulse Oximetry 97 100 98 Oxygen Delivery 09/21/24 16:00 09/21/24 16:00 09/21/24 16:23 Temperature Pulse Rate 88 88 Respiratory Rate Blood Pressure Pulse Oximetry 97 Oxygen Delivery Room Air 09/21/24 16:41 09/21/24 18:00 09/21/24 20:00 Temperature 97.3 F L 97.6 F Pulse Rate 88 69 73 Respiratory Rate 24 H 24 H Blood Pressure 170/103 H 157/113 H Pulse Oximetry 97 Oxygen Delivery 09/21/24 20:00 09/21/24 21:02 09/21/24 22:00 Temperature Pulse Rate 61 73 70 Respiratory Rate 24 H Blood Pressure Pulse Oximetry 97 Oxygen Delivery Room Air 09/21/24 22:25 09/21/24 23:41 09/21/24 23:50 Temperature 97.7 F Pulse Rate 68 68 Respiratory Rate 24 H 24 H Blood Pressure 153/104 H Pulse Oximetry 97 97 97 Oxygen Delivery Room Air Room Air 09/22/24 00:00 09/22/24 01:50 09/22/24 04:00 Temperature Pulse Rate 67 68 73 Respiratory Rate Blood Pressure Pulse Oximetry Oxygen Delivery 09/22/24 04:00 09/22/24 04:00 09/22/24 05:16 Temperature 97.8 F Pulse Rate 75 75 67 Respiratory Rate 24 H 24 H Blood Pressure 178/116 H Pulse Oximetry 94 94 Oxygen Delivery Room Air 09/22/24 08:00 09/22/24 08:00 09/22/24 08:34 Temperature Pulse Rate 56 L 68 Respiratory Rate Blood Pressure Pulse Oximetry 97 Oxygen Delivery Room Air 09/22/24 08:34 09/22/24 10:00 09/22/24 11:59 Temperature 97.5 F L 97.9 F Pulse Rate 62 69 74 Respiratory Rate 18 20 Blood Pressure 157/97 H 157/99 H Pulse Oximetry 97 96 Oxygen Delivery Exam 2 Const: General: comfortable and no acute distress Other: central obesity HENMT: Face/Nose/Sinus: Normal nares present Eyes: General: appearance normal, both eyes and all related structures Neck: Neck: supple Resp: Auscultation: clear to auscultation bilaterally Cardio: Rate: regular rate Rhythm: regular rhythm GI: Inspection: non-distended GI Palp: Yes Soft to palpation, No Tenderness to palpation present (GI) and No Guarding due to palpation present (GI) A uscultation: normal bowel sounds Skin: General skin exam: normal color Neuro: Speech: normal speech Motor exam (neuro): 5/5 motor strength present throughout Extrem: General: normal to inspection Psych: Mental Status: mental status grossly normal Results Labs 09/22/24 04:29 09/22/24 04:29 Labs: Short CBC 09/22/24 Range/Units 04:29 WBC 6.9 (4.5-10.0) K/mm3 Hgb 12.6 L (14.0-18.0) g/dL Hct 42.5 (42.0-52.0) % Plt Count 278 (150-375) k/mm3 BMP 09/22/24 04:29 Sodium 139 Potassium 3.5 Chloride 104 Carbon Dioxide 29 BUN 20 Creatinine 1.00 Glucose 128 H Calcium 9.1
[2024-09-22 16:52] LABS: Glucose Point of Care 201 mg/dl (65-105)
--- NOTE | 2024-09-22 17:01 | PC.NURSE ---
Transfer received per wheelchair from IMU.
[2024-09-22] MEDS: INSULIN ASPART (*BKC) 100 UNITS/ML SUB-Q (17:06)
--- NOTE | 2024-09-22 17:06 | PC.NURSE ---
This patient, Daren Rome, was transferred to [facility] on 09/22/24 at 1706. Personal belongings sent with patient. Report given to JACINTO Kaur. Appropriate documentation sent with patient.
[2024-09-22] MEDS: traZODone HCL 50 MG TABLET 100 MG PO (20:32)
[2024-09-22 21:08] LABS: Glucose Point of Care 155 mg/dl (65-105)
[2024-09-23] VITALS (11 sets, daily range): BP systolic 146–176; BP diastolic 76–105; PULSE 53–78; RESP 18–20; TEMP 36.1–36.6; O2SAT 95–100
[2024-09-23] MEDS: hydrALAZINE HCL 20 MG/ML VIAL 10 MG IV PUSH (00:30)
[2024-09-23 05:28] LABS: Basophils Absolute Auto 0.1 K/mm3 (0.0-0.1); Basophils Percent Auto 0.9 % (0.2-1.2); Eosinophils Absolute Auto 0.5 K/mm3 (0-0.3); Eosinophils Percent Auto 7.3 % (0-4.4); Hematocrit 45.3 % (42.0-52.0); Hemoglobin 13.2 g/dL (14.0-18.0); Immature Granulocyte Absolute 0.01 K/mm3 (0.00-0.031); Immature Granulocyte Percent A 0.1 % (0-0.5); Lymphocytes Absolute Auto 1.49 K/mm3 (0.9-3.2); Lymphocytes Percent Auto 22.1 % (18.3-44.2); Mean Corpuscular HGB Conc 29.1 g/dl (32-36); Mean Corpuscular Hemoglobin 25.2 pg (26-34); Mean Corpuscular Volume 86.6 fl (80-100); Mean Platelet Volume 10.7 fl (7.4-10.4); Monocytes Absolute Auto 0.6 K/mm3 (0.1-0.6); Monocytes Percent Auto 9.4 % (2.6-8.5); Neutrophils Absolute Auto 4.1 K/mm3 (1.3-6.7); Neutrophils Percent Auto 60.2 % (45.5-73.1); Platelet Count Result 289 k/mm3 (150-375); Red Blood Count 5.23 M/mm3 (4.6-6.20); Red Cell Distribution Width 15.4 % (11.5-14.5); White Blood Count 6.7 K/mm3 (4.5-10.0)
[2024-09-23 05:41] LABS: Alanine Aminotransferase 22 U/L (6-50); Alkaline Phosphatase 75 U/L (38-126); Anion Gap 8 mmol/L (4-12); Aspartate Amino Transferase 21 U/L (17-59); Bilirubin,Total 0.8 mg/dL (0.2-1.3); Blood Urea Nitrogen 25 mg/dL (9-20); Calcium 9.1 mg/dL (8.4-10.2); Carbon Dioxide 27 mmol/L (22-30); Chloride 103 mmol/L (98-107); Estimated CRCL calculation 160 ml/min; Estimated Glomerular Filt Rate > 60; Glucose 123 mg/dL (65-110); Magnesium 2.5 mg/dL (1.6-2.3); Potassium 3.6 mmol/L (3.4-5.0); Sodium 138 mmol/L (137-145)
[2024-09-23 06:00] LABS: Anisocytosis 1+; Burr Cells 1+; Ovalocytes 1+; Platelet Estimate Adequate (Adequate); Poikilocytosis 1+; Schistocytes None Seen
[2024-09-23] MEDS: HYDROcodone/acetaminophen (*CRX) 5-325 MG TABLET 1 TAB PO (06:02)
[2024-09-23] MEDS: ASPIRIN 81 MG ENTERIC TABLET PO (07:50)
[2024-09-23] MEDS: carvediloL 25 MG TABLET PO ×2 (07:50→16:33)
[2024-09-23] MEDS: FUROSEMIDE 40 MG TABLET PO (07:50)
[2024-09-23] MEDS: PANTOPRAZOLE 40 MG TABLET PO (07:50)
[2024-09-23] MEDS: ENOXAPARIN 40 MG/0.4 ML SYRINGE SUB-Q (07:50)
[2024-09-23] MEDS: hydrALAZINE HCL 25 MG TABLET PO ×4 (07:50→22:09)
[2024-09-23] MEDS: lisinopriL 20 MG TABLET PO (07:50)
[2024-09-23 08:15] LABS: Glucose Point of Care 134 mg/dl (65-105)
[2024-09-23 12:08] LABS: Glucose Point of Care 204 mg/dl (65-105)
[2024-09-23] MEDS: INSULIN ASPART (*BKC) 100 UNITS/ML SUB-Q (12:10)
--- NOTE | 2024-09-23 13:39 | PM.IMPN ---
Progress Note: A&P Assessment and Plan (1) Uncontrolled hypertension: Code(s): I10 - Essential (primary) hypertension Status: Acute (2) Chest pain: Code(s): R07.9 - Chest pain, unspecified Status: Acute (3) Enlarged pulmonary artery: Code(s): I28.8 - Other diseases of pulmonary vessels Status: Acute (4) Type 2 diabetes mellitus: Code(s): E11.9 - Type 2 diabetes mellitus without complications Status: Acute (5) Obstructive sleep apnea: Code(s): G47.33 - Obstructive sleep apnea (adult) (pediatric) Status: Acute (6) Tobacco abuse disorder: Code(s): Z72.0 - Tobacco use Status: Acute (7) Depression: Code(s): F32.A - Depression, unspecified Status: Acute Plan This is a 39-year-old male with history of cerebrovascular accident and myocardial infarction due to hypertensive disease, historically poorly controlled hypertension, type 2 diabetes mellitus, untreated obstructive sleep apnea, pancreatitis, hepatic steatosis, morbid obesity, and anxiety who presented to the emergency department via EMS for evaluation of chest pain. His symptoms began about 3 hours prior to arrival while taking a shower. He describes a pushing sensation just left of the mid sternum radiating somewhat into the left arm and hand. He felt a bit short of breath with that and endorses nausea as well. The pain is not reproducible on palpation. He has not noticed any significant aggravating factors but reports that a GI cocktail helped immensely. With further questioning he reports having significant GERD symptoms, worse recently, for which he has been taking Tums often. He also endorses bloating and belching and frequent epigastric discomfort. He denies syncope, near syncope, pleuritic pain, palpitations, cough, hematemesis, melena, hematochezia, and calf pain. Of note the patient's nurse called me to report that the patient has been feeling increasingly depressed. He has no thoughts of suicide and no plan but is asking to see a psychiatrist while in the hospital. In the ED: Blood pressure was 212/139 on arrival. Labs were significant for WBC count of 10.1, hemoglobin 13.1, glucose 160, troponin less than 0.012, proBNP 1870. CT of the chest, abdomen, and pelvis showed no acute findings but did note enlargement of the central pulmonary arteries consistent with pulmonary arterial hypertension, diffuse hepatic steatosis, and mild edematous appearing gallbladder wall thickening versus trace amount of pericholecystic fluid. Right upper quadrant ultrasound was normal. EKG showed sinus rhythm with nonspecific ST T-wave abnormalities. He was given a GI cocktail and hydralazine 10 mg IV and he is being admitted in this setting for close monitoring. Accelerated hypertension improved with p.r.n. hydralazine. Currently on lisinopril 20 mg carvedilol 25 mg b.i.d. Lasix 40 mg daily. Amlodipine was discontinued in the past due to leg swelling. Hydralazine was added which had helped. Will add back hydralazine. Does not seem to be on this medication anymore. Will also add spironolactone today Atypical chest pain troponin trend negative. Suspected GI/GERD related. GI has been consulted. potentially EGD on Tuesday Right upper quadrant pain/discomfort. CTA showed some mildly edematous appearing gallbladder wall thickening versus trace amount of pericholecystic fluid with no gallbladder dilation not evident cholelithiasis on recent MRI/MRCP. Follow-up right upper quadrant ultrasound was unremarkable. Pulmonary arterial hypertension: Echo with EF 45-50% severe MR moderate TR grade 4 diastolic dysfunction moderate concentric left ventricular thickness. Already on carvedilol and lisinopril. Add spironolactone. History of cardiomyopathy with ejection fraction less than 20% in the fast cardiac catheterization at that time showed no coronary artery disease. Been diagnosed with sleep apnea long time ago was suggested CPAP but not on treatment because of cost. Apnea /04/2024 with AHI 9.9. fu with pcp for sleepapnea testing and possibly start CPAP. Headache CT head was negative. Shows left maxillary sinusitis clinically no acute sinusitis. Will add Flonase Type 2 diabetes on metformin Anxiety depression: Follow up with Psychiatry as outpatient basis. Crisis team to see prior to discharge. DVT prophylaxis Lovenox code status full code Subjective Date/time seen: 09/23/24 13:39 Interval history: Complains of headache could not do sleep study at night. No chest pain or shortness of breath Review of Systems Review of Systems: All systems reviewed & are unremarkable except as noted in HPI and below Exam Narrative: General: Well-developed, nontoxic-appearing male sitting up in bed in no acute distress. HEENT: PERRL, EOMI. Sclera anicteric. Oral mucosa moist. Crowded oropharynx. Neck: Supple. Limited due to neck circumference. Respiratory: Lungs are clear to auscultation bilaterally. Cardiovascular: Regular rate and rhythm with S1-S2. No murmur, rub, or gallop. Gastrointestinal: Abdomen is soft, obese, nontender, and nondistended with positive bowel sounds. Skin: Warm and dry. No rash or lesions on limited exam. Extremities: No cyanosis or clubbing. 1+ bilateral lower extremity edema. No palpable knots or cords. Neurological: Alert. Cranial nerves 2-12 are grossly intact. No gross focal deficits to casual conversation. Psychiatric: Pleasant and cooperative with appropriate mood and depressed affect. Objective Data Vital Signs Vital Signs: Vital Signs - 24 hr 09/22/24 16:00 09/22/24 16:30 09/22/24 16:56 Temperature 97.6 F Pulse Rate 53 L 72 66 Respiratory Rate 22 H Blood Pressure 165/88 H Pulse Oximetry 97 Oxygen Delivery Oxygen Flow Rate Fraction of Inspired Oxygen 09/22/24 17:02 09/22/24 20:00 09/22/24 20:00 Temperature Pulse Rate 76 67 69 Respiratory Rate 20 Blood Pressure Pulse Oximetry 99 Oxygen Delivery Room Air Oxygen Flow Rate Fraction of Inspired Oxygen 09/22/24 20:35 09/22/24 21:31 09/23/24 00:00 Temperature 97 F L Pulse Rate 67 80 53 L Respiratory Rate 20 20 Blood Pressure 160/113 H Pulse Oximetry 99 98 Oxygen Delivery Nasal Cannula Oxygen Flow Rate 2 Fraction of Inspired Oxygen 28 09/23/24 00:09 09/23/24 04:00 09/23/24 04:00 Temperature 97 F L 97 F L Pulse Rate 67 69 57 L Respiratory Rate 18 18 Blood Pressure 176/105 H 164/101 H Pulse Oximetry 99 100 Oxygen Delivery Oxygen Flow Rate Fraction of Inspired Oxygen 09/23/24 07:50 09/23/24 08:00 09/23/24 08:00 Temperature 97.9 F Pulse Rate 58 L 72 Respiratory Rate 18 Blood Pressure 146/76 H Pulse Oximetry 99 Oxygen Delivery Room Air Oxygen Flow Rate Fraction of Inspired Oxygen 09/23/24 08:00 09/23/24 12:00 09/23/24 12:00 Temperature 97.7 F Pulse Rate 60 64 78 Respiratory Rate 18 Blood Pressure 154/96 H Pulse Oximetry 98 Oxygen Delivery Oxygen Flow Rate Fraction of Inspired Oxygen Intake/Output Intake/Output: Intake & Output 09/20/24 09/21/24 09/22/24 09/23/24 23:59 23:59 23:59 23:59 Intake Total 780 980 970 Output Total 450 Balance 780 530 970 Meds/Results Medications: Active Medications Generic Name Dose Route Start Last Admin Trade Name Freq PRN Reason Stop Dose Admin Acetaminophen 650 mg 09/21/24 13:07 Acetaminophen 325 Mg Tablet PO Q4H PRN Mild Pain (1-3) or Fever Hydrocodone Bitart/Acetaminophen 1 tab 09/21/24 13:07 09/23/24 06:02 Hydrocodone/Acetaminophen (*Crx) 5-325 Mg Tablet PO 1 tab Q4H PRN Administration Pain Rated 4-6 Albuterol 2 puff 09/21/24 15:54 Albuterol Sulfate (*Sp) Aerosol 1 Puff INHALATION Q6HRT PRN Shortness Of Breath Aspirin 81 mg 09/22/24 09:00 09/23/24 07:50 Aspirin 81 Mg Enteric Tablet PO 81 mg DAILY VIKY Administration Carvedilol 25 mg 09/21/24 17:00 09/23/24 07:50 Carvedilol 25 Mg Tablet PO 25 mg BIDWM VIKY Administration Dextrose 12.5 gm 09/21/24 15:31 Dextrose 50% 25 Gm/50 Ml Syringe IV PUSH PRN PRN Hypoglycemia Protocol Enoxaparin Sodium 40 mg 09/22/24 09:00 09/23/24 07:50 Enoxaparin 40 Mg/0.4 Ml Syringe SUB-Q 40 mg DAILY VIKY Administration Furosemide 40 mg 09/22/24 09:00 09/23/24 07:50 Furosemide 40 Mg Tablet PO 40 mg DAILY VIKY Administration Glucagon 1 mg 09/21/24 15:31 Glucagon For Inj 1 Mg Vial IM PRN PRN Hypoglycemia Protocol Glucose 15 gm 09/21/24 15:31 Glucose Oral Gel 15 Gm Of Glucse In 37.5 Gm Tube PO PRN PRN Hypoglycemia Protocol Hydralazine HCl 10 mg 09/21/24 13:07 09/23/24 00:30 Hydralazine Hcl 20 Mg/Ml Vial IV PUSH 10 mg Q8H PRN Administration SBP > 165 or DBP > 105 Hydralazine HCl 25 mg 09/22/24 09:00 09/23/24 12:16 Hydralazine Hcl 25 Mg Tablet PO 25 mg QID VIKY Administration Hydroxyzine HCl 25 mg 09/21/24 15:44 09/22/24 20:32 Hydroxyzine Hcl 25 Mg Tablet PO 25 mg TID PRN Administration anxiety Dextrose 1,000 mls @ 100 mls/hr 09/21/24 15:31 Dextrose 5% 1,000 Ml IVPB PRN PRN Hypoglycemia Protocol Insulin Aspart 3 - 6 units 09/21/24 17:00 09/23/24 12:10 Insulin Aspart (*Bkc) 100 Units/Ml SUB-Q 3 units TIDWM VIKY Administration Protocol Insulin Aspart 1 - 3 units 09/21/24 21:00 09/22/24 20:35 Insulin Aspart (*Bkc) 100 Units/Ml SUB-Q Not Given HS VIKY Protocol Lisinopril 20 mg 09/22/24 09:00 09/23/24 07:50 Lisinopril 20 Mg Tablet PO 20 mg DAILY VIKY Administration Morphine Sulfate 4 mg 09/21/24 13:07 09/21/24 21:30 Morphine Sulfate (*Crx) 4 Mg/Ml Inj IV PUSH 4 mg Q2H PRN Administration Pain Rated 7-10 Ondansetron HCl 4 mg 09/21/24 13:07 09/21/24 21:39 Ondansetron Inj 4 Mg/2 Ml Vial IV PUSH 4 mg Q4H PRN Administration Nausea Pantoprazole Sodium 40 mg 09/22/24 09:00 09/23/24 07:50 Pantoprazole 40 Mg Tablet PO 40 mg QAM VIKY Administration Trazodone HCl 100 mg 09/21/24 15:44 09/22/24 20:32 Trazodone Hcl 50 Mg Tablet PO 100 mg HS PRN Administration insomnia Radiology Results: ITS Impressions Chest X-Ray 09/21/24 08:46 IMPRESSION: No focal infiltrate or effusion. Chest/Abdomen/Pelvis CTA 09/21/24 09:55 IMPRESSION: 1. Normal caliber aorta with no dissection or other acute cardiopulmonary disease. 2. Enlargement of the central pulmonary arteries consistent with pulmonary arterial hypertension. 3. Diffuse hepatic steatosis. 4. Mild edematous-appearing gallbladder wall thickening versus trace amount of pericholecystic fluid with no gallbladder dilation nor evident cholelithiasis on recent MRI/MRCP to suggest acute cholecystitis. Differential would include chronic cholecystitis, liver, heart, renal disease or other generalized edema forming states. Upper Quadrant Ultrasound 09/21/24 11:10 Impression: No significant abnormality seen. Head CT 09/22/24 12:10 IMPRESSION: 1. No acute intracranial abnormality. 2: Moderate left maxillary sinusitis. Labs Labs: Laboratory Results - last 24 hr 09/22/24 09/22/24 09/23/24 15:37 20:34 04:47 WBC 6.7 RBC 5.23 Hgb 13.2 L Hct 45.3 MCV 86.6 MCH 25.2 L MCHC 29.1 L RDW 15.4 H Plt Count 289 MPV 10.7 H Immature Gran % (Auto) 0.1 Neut % (Auto) 60.2 Lymph % (Auto) 22.1 [place] % (Auto) 9.4 H Eos % (Auto) 7.3 H Baso % (Auto) 0.9 Lymph # (Auto) 1.49 [place] # (Auto) 0.6 Eos # (Auto) 0.5 H Baso # (Auto) 0.1 Abs Immat Gran (auto) 0.01 Absolute Neuts (auto) 4.1 Absolute Nucleated RBC 0.000 Band Neutrophils % Not Reportable Nucleated RBC % 0.0 Platelet Estimate Adequate Poikilocytosis 1+ Anisocytosis 1+ Ovalocytes 1+ Bianka Cells 1+ Schistocytes None seen Sodium 138 Potassium 3.6 Chloride 103 Carbon Dioxide 27 Anion Gap 8 BUN 25 H Creatinine 0.97 Estim Creat Clear Calc 160 Estimated GFR > 60 Glucose 123 H POC Capillary Glucose 201 H 155 H Calcium 9.1 Magnesium 2.5 H Total Bilirubin 0.8 AST 21 ALT 22 Alkaline Phosphatase 75 Total Protein 7.0 Albumin 4.0 09/23/24 09/23/24 08:10 12:01 WBC RBC Hgb Hct MCV MCH MCHC RDW Plt Count MPV Immature Gran % (Auto) Neut % (Auto) Lymph % (Auto) [place] % (Auto) Eos % (Auto) Baso % (Auto) Lymph # (Auto) [place] # (Auto) Eos # (Auto) Baso # (Auto) Abs Immat Gran (auto) Absolute Neuts (auto) Absolute Nucleated RBC Band Neutrophils % Nucleated RBC % Platelet Estimate Poikilocytosis Anisocytosis Ovalocytes [place] Cells Schistocytes Sodium Potassium Chloride Carbon Dioxide Anion Gap BUN Creatinine Estim Creat Clear Calc Estimated GFR Glucose POC Capillary Glucose 134 H 204 H Calcium Magnesium Total Bilirubin AST ALT Alkaline Phosphatase Total Protein Albumin
[2024-09-23] MEDS: SPIRONOLACTONE 25 MG TABLET PO (13:53)
--- NOTE | 2024-09-23 15:12 | P.PNGI_ITS ---
Progress Note: A&P Assessment and Plan (1) Non-cardiac chest pain: Code(s): R07.89 - Other chest pain Status: Acute Assessment and Plan: resolved will do egd tomorrow to rule out gi source he is comfortable now awaiting for psych evaluation (2) Nausea: Code(s): R11.0 - Nausea Status: Acute Assessment and Plan: resolved (3) Depression: Code(s): F32.A - Depression, unspecified Status: Acute (4) Hypertension, uncontrolled: Code(s): I10 - Essential (primary) hypertension Status: Acute Subjective Date/time seen: 09/23/24 15:12 Interval history: c/o headache, overall better Review of Systems Review of Systems: All systems reviewed & are unremarkable except as noted in HPI and below Exam Const: General: comfortable and no acute distress Other: central obesity HENMT: Face/Nose/Sinus: Normal nares present Eyes: General: appearance normal, both eyes and all related structures Neck: Neck: supple Resp: Auscultation: clear to auscultation bilaterally Cardio: Rate: regular rate Rhythm: regular rhythm GI: Inspection: non-distended GI Palp: Yes Soft to palpation, No Tenderness to palpation present (GI) and No Guarding due to palpation present (GI) Auscultation: normal bowel sounds Skin: General skin exam: normal color Neuro: Speech: normal speech Motor exam (neuro): 5/5 motor strength present throughout Extrem: General: normal to inspection Psych: Mental Status: mental status grossly normal Objective Data Vital Signs Vital Signs: Vital Signs - 24 hr 09/22/24 16:00 09/22/24 16:30 09/22/24 16:56 Temperature 97.6 F Pulse Rate 53 L 72 66 Respiratory Rate 22 H Blood Pressure 165/88 H Pulse Oximetry 97 Oxygen Delivery Oxygen Flow Rate Fraction of Inspired Oxygen 09/22/24 17:02 09/22/24 20:00 09/22/24 20:00 Temperature Pulse Rate 76 67 69 Respiratory Rate 20 Blood Pressure Pulse Oximetry 99 Oxygen Delivery Room Air Oxygen Flow Rate Fraction of Inspired Oxygen 09/22/24 20:35 09/22/24 21:31 09/23/24 00:00 Temperature 97 F L Pulse Rate 67 80 53 L Respiratory Rate 20 20 Blood Pressure 160/113 H Pulse Oximetry 99 98 Oxygen Delivery Nasal Cannula Oxygen Flow Rate 2 Fraction of Inspired Oxygen 28 09/23/24 00:09 09/23/24 04:00 09/23/24 04:00 Temperature 97 F L 97 F L Pulse Rate 67 69 57 L Respiratory Rate 18 18 Blood Pressure 176/105 H 164/101 H Pulse Oximetry 99 100 Oxygen Delivery Oxygen Flow Rate Fraction of Inspired Oxygen 09/23/24 07:50 09/23/24 08:00 09/23/24 08:00 Temperature 97.9 F Pulse Rate 58 L 72 Respiratory Rate 18 Blood Pressure 146/76 H Pulse Oximetry 99 Oxygen Delivery Room Air Oxygen Flow Rate Fraction of Inspired Oxygen 09/23/24 08:00 09/23/24 12:00 09/23/24 12:00 Temperature 97.7 F Pulse Rate 60 64 78 Respiratory Rate 18 Blood Pressure 154/96 H Pulse Oximetry 98 Oxygen Delivery Oxygen Flow Rate Fraction of Inspired Oxygen Intake/Output Intake/Output: Intake & Output 09/20/24 09/21/24 09/22/24 09/23/24 23:59 23:59 23:59 23:59 Intake Total 780 980 970 Output Total 450 Balance 780 530 970 Meds/Results Medications: Active Medications Generic Name Dose Route Start Last Admin Trade Name Freq PRN Reason Stop Dose Admin Acetaminophen 650 mg 09/21/24 13:07 Acetaminophen 325 Mg Tablet PO Q4H PRN Mild Pain (1-3) or Fever Hydrocodone Bitart/Acetaminophen 1 tab 09/21/24 13:07 09/23/24 06:02 Hydrocodone/Acetaminophen (*Crx) 5-325 Mg Tablet PO 1 tab Q4H PRN Administration Pain Rated 4-6 Albuterol 2 puff 09/21/24 15:54 Albuterol Sulfate (*Sp) Aerosol 1 Puff INHALATION Q6HRT PRN Shortness Of Breath Aspirin 81 mg 09/22/24 09:00 09/23/24 07:50 Aspirin 81 Mg Enteric Tablet PO 81 mg DAILY VIKY Administration Carvedilol 25 mg 09/21/24 17:00 09/23/24 07:50 Carvedilol 25 Mg Tablet PO 25 mg BIDWM VIKY Administration Dextrose 12.5 gm 09/21/24 15:31 Dextrose 50% 25 Gm/50 Ml Syringe IV PUSH PRN PRN Hypoglycemia Protocol Enoxaparin Sodium 40 mg 09/22/24 09:00 09/23/24 07:50 Enoxaparin 40 Mg/0.4 Ml Syringe SUB-Q 40 mg DAILY VIKY Administration Fluticasone Propionate 1 spray 09/23/24 21:00 Fluticasone Propionate 0.05% Na Spr 16 Gm Btl (*Bkc) NASAL Q12HR VIKY Furosemide 40 mg 09/22/24 09:00 09/23/24 07:50 Furosemide 40 Mg Tablet PO 40 mg DAILY VIKY Administration Glucagon 1 mg 09/21/24 15:31 Glucagon For Inj 1 Mg Vial IM PRN PRN Hypoglycemia Protocol Glucose 15 gm 09/21/24 15:31 Glucose Oral Gel 15 Gm Of Glucse In 37.5 Gm Tube PO PRN PRN Hypoglycemia Protocol Hydralazine HCl 10 mg 09/21/24 13:07 09/23/24 00:30 Hydralazine Hcl 20 Mg/Ml Vial IV PUSH 10 mg Q8H PRN Administration SBP > 165 or DBP > 105 Hydralazine HCl 25 mg 09/22/24 09:00 09/23/24 12:16 Hydralazine Hcl 25 Mg Tablet PO 25 mg QID VIKY Administration Hydroxyzine HCl 25 mg 09/21/24 15:44 09/22/24 20:32 Hydroxyzine Hcl 25 Mg Tablet PO 25 mg TID PRN Administration anxiety Dextrose 1,000 mls @ 100 mls/hr 09/21/24 15:31 Dextrose 5% 1,000 Ml IVPB PRN PRN Hypoglycemia Protocol Insulin Aspart 3 - 6 units 09/21/24 17:00 09/23/24 12:10 Insulin Aspart (*Bkc) 100 Units/Ml SUB-Q 3 units TIDWM VIKY Administration Protocol Insulin Aspart 1 - 3 units 09/21/24 21:00 09/22/24 20:35 Insulin Aspart (*Bkc) 100 Units/Ml SUB-Q Not Given HS VIKY Protocol Lisinopril 20 mg 09/22/24 09:00 09/23/24 07:50 Lisinopril 20 Mg Tablet PO 20 mg DAILY VIKY Administration Morphine Sulfate 4 mg 09/21/24 13:07 09/21/24 21:30 Morphine Sulfate (*Crx) 4 Mg/Ml Inj IV PUSH 4 mg Q2H PRN Administration Pain Rated 7-10 Ondansetron HCl 4 mg 09/21/24 13:07 09/21/24 21:39 Ondansetron Inj 4 Mg/2 Ml Vial IV PUSH 4 mg Q4H PRN Administration Nausea Pantoprazole Sodium 40 mg 09/22/24 09:00 09/23/24 07:50 Pantoprazole 40 Mg Tablet PO 40 mg QAM VIKY Administration Spironolactone 25 mg 09/23/24 13:40 09/23/24 13:53 Spironolactone 25 Mg Tablet PO 25 mg QAM VIKY Administration Trazodone HCl 100 mg 09/21/24 15:44 09/22/24 20:32 Trazodone Hcl 50 Mg Tablet PO 100 mg HS PRN Administration insomnia Radiology Results: ITS Impressions Chest X-Ray 09/21/24 08:46 IMPRESSION: No focal infiltrate or effusion. Chest/Abdomen/Pelvis CTA 09/21/24 09:55 IMPRESSION: 1. Normal caliber aorta with no dissection or other acute cardiopulmonary disease. 2. Enlargement of the central pulmonary arteries consistent with pulmonary arterial hypertension. 3. Diffuse hepatic steatosis. 4. Mild edematous-appearing gallbladder wall thickening versus trace amount of pericholecystic fluid with no gallbladder dilation nor evident cholelithiasis on recent MRI/MRCP to suggest acute cholecystitis. Differential would include chronic cholecystitis, liver, heart, renal disease or other generalized edema forming states. Upper Quadrant Ultrasound 09/21/24 11:10 Impression: No significant abnormality seen. Head CT 09/22/24 12:10 IMPRESSION: 1. No acute intracranial abnormality. 2: Moderate left maxillary sinusitis. Labs Labs: Laboratory Results - last 24 hr 09/22/24 09/22/24 09/23/24 15:37 20:34 04:47 WBC 6.7 RBC 5.23 Hgb 13.2 L Hct 45.3 MCV 86.6 MCH 25.2 L MCHC 29.1 L RDW 15.4 H Plt Count 289 MPV 10.7 H Immature Gran % (Auto) 0.1 Neut % (Auto) 60.2 Lymph % (Auto) 22.1 [place] % (Auto) 9.4 H Eos % (Auto) 7.3 H Baso % (Auto) 0.9 Lymph # (Auto) 1.49 [place] # (Auto) 0.6 Eos # (Auto) 0.5 H Baso # (Auto) 0.1 Abs Immat Gran (auto) 0.01 Absolute Neuts (auto) 4.1 Absolute Nucleated RBC 0.000 Band Neutrophils % Not Reportable Nucleated RBC % 0.0 Platelet Estimate Adequate Poikilocytosis 1+ Anisocytosis 1+ Ovalocytes 1+ Bianka Cells 1+ Schistocytes None seen Sodium 138 Potassium 3.6 Chloride 103 Carbon Dioxide 27 Anion Gap 8 BUN 25 H Creatinine 0.97 Estim Creat Clear Calc 160 Estimated GFR > 60 Glucose 123 H POC Capillary Glucose 201 H 155 H Calcium 9.1 Magnesium 2.5 H Total Bilirubin 0.8 AST 21 ALT 22 Alkaline Phosphatase 75 Total Protein 7.0 Albumin 4.0 09/23/24 09/23/24 08:10 12:01 WBC RBC Hgb Hct MCV MCH MCHC RDW Plt Count MPV Immature Gran % (Auto) Neut % (Auto) Lymph % (Auto) [place] % (Auto) Eos % (Auto) Baso % (Auto) Lymph # (Auto) [place] # (Auto) Eos # (Auto) Baso # (Auto) Abs Immat Gran (auto) Absolute Neuts (auto) Absolute Nucleated RBC Band Neutrophils % Nucleated RBC % Platelet Estimate Poikilocytosis Anisocytosis Ovalocytes [place] Cells Schistocytes Sodium Potassium Chloride Carbon Dioxide Anion Gap BUN Creatinine Estim Creat Clear Calc Estimated GFR Glucose POC Capillary Glucose 134 H 204 H Calcium Magnesium Total Bilirubin AST ALT Alkaline Phosphatase Total Protein Albumin
[2024-09-23 17:10] LABS: Glucose Point of Care 115 mg/dl (65-105)
[2024-09-23] MEDS: polyethylene glycoL 3350 17 GM POWD.PACK PO (18:42)
[2024-09-23 21:00] LABS: Glucose Point of Care 161 mg/dl (65-105)
[2024-09-23] MEDS: traZODone HCL 50 MG TABLET 100 MG PO (22:09)
[2024-09-23] MEDS: ACETAMINOPHEN 325 MG TABLET 650 MG PO (22:09)
[2024-09-23] MEDS: FLUTICASONE PROPIONATE 0.05% NA SPR 16 GM BTL (*BKC) 1 SPRAY NASAL (22:09)
[2024-09-23] MEDS: hydrOXYzine HCL 25 MG TABLET PO (22:10)
--- NOTE | 2024-09-23 22:59 | PCRCNOTE ---
Pt refused said he does not have a home CPAP/BIPAP.
[2024-09-24] VITALS (18 sets, daily range): BP systolic 168–194; BP diastolic 87–121; PULSE 65–83; RESP 12–25; TEMP 36–36.7; O2SAT 96–100
[2024-09-24] MEDS: hydrALAZINE HCL 20 MG/ML VIAL 10 MG IV PUSH ×3 (01:17→23:25)
[2024-09-24 05:26] LABS: Basophils Absolute Auto 0.1 K/mm3 (0.0-0.1); Basophils Percent Auto 0.9 % (0.2-1.2); Eosinophils Absolute Auto 0.4 K/mm3 (0-0.3); Eosinophils Percent Auto 6.1 % (0-4.4); Hematocrit 42.2 % (42.0-52.0); Hemoglobin 12.6 g/dL (14.0-18.0); Immature Granulocyte Absolute 0.02 K/mm3 (0.00-0.031); Immature Granulocyte Percent A 0.3 % (0-0.5); Lymphocytes Absolute Auto 1.27 K/mm3 (0.9-3.2); Lymphocytes Percent Auto 18.5 % (18.3-44.2); Mean Corpuscular HGB Conc 29.9 g/dl (32-36); Mean Corpuscular Hemoglobin 25.1 pg (26-34); Mean Corpuscular Volume 84.1 fl (80-100); Mean Platelet Volume 10.8 fl (7.4-10.4); Monocytes Absolute Auto 0.7 K/mm3 (0.1-0.6); Monocytes Percent Auto 10.5 % (2.6-8.5); Neutrophils Absolute Auto 4.4 K/mm3 (1.3-6.7); Neutrophils Percent Auto 63.7 % (45.5-73.1); Platelet Count Result 301 k/mm3 (150-375); Red Blood Count 5.02 M/mm3 (4.6-6.20); Red Cell Distribution Width 15.3 % (11.5-14.5); White Blood Count 6.9 K/mm3 (4.5-10.0)
[2024-09-24 05:41] LABS: Alanine Aminotransferase 21 U/L (6-50); Alkaline Phosphatase 74 U/L (38-126); Anion Gap 9 mmol/L (4-12); Aspartate Amino Transferase 20 U/L (17-59); Bilirubin,Total 0.7 mg/dL (0.2-1.3); Blood Urea Nitrogen 22 mg/dL (9-20); Carbon Dioxide 28 mmol/L (22-30); Chloride 101 mmol/L (98-107); Estimated CRCL calculation 157 ml/min; Estimated Glomerular Filt Rate > 60; Glucose 135 mg/dL (65-110); Magnesium 2.4 mg/dL (1.6-2.3); Potassium 3.4 mmol/L (3.4-5.0); Sodium 138 mmol/L (137-145)
--- NOTE | 2024-09-24 07:10 | PC.NURSE ---
Patient off floor to GI lab via wheelchair.
[2024-09-24 07:22] LABS: Glucose Point of Care 140 mg/dl (65-105)
[2024-09-24] MEDS: LACTATED RINGERS 1,000 ML 150 ML IV CONT (07:23)
--- NOTE | 2024-09-24 07:43 | P.PNAN_ITS ---
Anes - Initial Pre Proc Eval Procedure: Operation Date: 09/24/24 15:00 Proposed Procedures p Esophagogastroduodenoscopy - Calos Adams MD Date/Time: 09/24/24 07:43 Surgeon: Nikolas Webb MD Pre Op Diagnosis: uncontrolled htn, chest pain Patient Data Age: 39 Gender: M Height: 2.03 m Weight: 179 kg Last Vital Signs Temp 36.0 C L 09/24/24 07:10 Pulse 74 09/24/24 07:10 Resp 20 09/24/24 07:10 BP 194/113 H 09/24/24 07:10 Pulse Ox 99 09/24/24 07:10 O2 Del Method Room Air 09/24/24 07:10 O2 Flow Rate 2 09/22/24 21:31 FiO2 21 09/23/24 21:16 Allergies Allergy/AdvReac Type Severity Reaction Status Date / Time cat dander Allergy Itching Verified 09/24/24 07:20 RAGWEED Allergy Mild Itching Uncoded 09/24/24 07:20 Home Medications ?Medication ?Instructions ?Recorded ?Confirmed ?Type aspirin 81 mg tablet,delayed 81 mg PO DAILY 03/23/24 09/21/24 History release (Adult Low Dose Aspirin) furosemide 40 mg tablet 40 mg PO DAILY 03/23/24 09/21/24 History carvedilol 25 mg tablet (Coreg) 25 mg PO BIDWM #90 tabs 03/28/24 09/21/24 Rx lisinopril 10 mg tablet 20 mg (2 x 10 mg) PO DAILY #90 tabs 03/28/24 09/21/24 Rx metformin 500 mg tablet,extended 500 mg PO BID #90 tabs 03/28/24 09/21/24 Rx release 24 hr hydroxyzine HCl 25 mg tablet 25 mg PO TID PRN anxiety 09/21/24 09/21/24 History trazodone 100 mg tablet 100 mg PO HS PRN insomnia 09/21/24 09/21/24 History Laboratory Tests 09/23/24 09/23/24 09/23/24 08:10 12:01 17:05 WBC RBC Hgb Hct MCV MCH MCHC RDW Plt Count MPV Immature Gran % (Auto) Neut % (Auto) Lymph % (Auto) [place] % (Auto) Eos % (Auto) Baso % (Auto) Lymph # (Auto) [place] # (Auto) Eos # (Auto) Baso # (Auto) Abs Immat Gran (auto) Absolute Neuts (auto) Absolute Nucleated RBC Nucleated RBC % Sodium Potassium Chloride Carbon Dioxide Anion Gap BUN Creatinine Estim Creat Clear Calc Estimated GFR Glucose POC Capillary Glucose 134 H mg/dl 204 H mg/dl 115 H mg/dl (65-105) (65-105) (65-105) Calcium Magnesium Total Bilirubin AST ALT Alkaline Phosphatase Total Protein Albumin 09/23/24 09/24/24 09/24/24 20:39 04:35 07:16 WBC 6.9 K/mm3 (4.5-10.0) RBC 5.02 M/mm3 (4.6-6.20) Hgb 12.6 L g/dL (14.0-18.0) Hct 42.2 % (42.0-52.0) MCV 84.1 fl (80-100) MCH 25.1 L pg (26-34) MCHC 29.9 L g/dl (32-36) RDW 15.3 H % (11.5-14.5) Plt Count 301 k/mm3 (150-375) MPV 10.8 H fl (7.4-10.4) Immature Gran % (Auto) 0.3 % (0-0.5) Neut % (Auto) 63.7 % (45.5-73.1) Lymph % (Auto) 18.5 % (18.3-44.2) [place] % (Auto) 10.5 H % (2.6-8.5) Eos % (Auto) 6.1 H % (0-4.4) Baso % (Auto) 0.9 % (0.2-1.2) Lymph # (Auto) 1.27 K/mm3 (0.9-3.2) [place] # (Auto) 0.7 H K/mm3 (0.1-0.6) Eos # (Auto) 0.4 H K/mm3 (0-0.3) Baso # (Auto) 0.1 K/mm3 (0.0-0.1) Abs Immat Gran (auto) 0.02 K/mm3 (0.00-0.031) Absolute Neuts (auto) 4.4 K/mm3 (1.3-6.7) Absolute Nucleated RBC 0.000 K/mm3 (0.0-0.012) Nucleated RBC % 0.0 % (0.0-0.2) Sodium 138 mmol/L (137-145) Potassium 3.4 mmol/L (3.4-5.0) Chloride 101 mmol/L (98-107) Carbon Dioxide 28 mmol/L (22-30) Anion Gap 9 mmol/L (4-12) BUN 22 H mg/dL (9-20) Creatinine 1.00 mg/dL (0.7-1.3) Estim Creat Clear Calc 157 ml/min Estimated GFR > 60 (59 - ) Glucose 135 H mg/dL (65-110) POC Capillary Glucose 161 H mg/dl 140 H mg/dl (65-105) (65-105) Calcium 9.0 mg/dL (8.4-10.2) Magnesium 2.4 H mg/dL (1.6-2.3) Total Bilirubin 0.7 mg/dL (0.2-1.3) AST 20 U/L (17-59) ALT 21 U/L (6-50) Alkaline Phosphatase 74 U/L (38-126) Total Protein 7.0 g/dL (6.3-8.2) Albumin 4.0 g/dL (3.5-5.1) Patient hx anesthesia problems: none Family hx anesthesia problems: none Results Review: All pre-operative results and documents have been reviewed as part of the pre- operative evaluation. [facility] Past Medical History Medical History Nausea Non-cardiac chest pain Type 2 diabetes mellitus Pancreatitis Transient ischemic attack Hepatic steatosis (02/2024) Tobacco abuse disorder Asthma Kidney stones Morbid obesity with BMI of 40.0-44.9, adult Obstructive sleep apnea Patient never went and got a CPAP because he knew he could not afford it? Hypertensive cardiomyopathy Hypertensive heart disease Coronary artery disease Surgical History Surgical History Status post open reduction with internal fixation of fracture Left orbital fracture History of cardiac catheterization Family History Family History Mother Diabetes mellitus Social History Social History Social History: Surrogate medical decision maker: Zahida Rome, mother. Code status: Full code. Smoking packs per day: 0.5 Smoking cigarettes per day: 10.0 Years smoked: 23 Smoking pack-years: 11.50 Smoking status: Current every day smoker Alcohol intake: never Drinks per week: 1 Substance use: never Do You Feel Safe in your Home?: Yes Lack of Transportation: YES Lack of Food: Often True Current Housing: I Do Not Have Housing Concerned About Future Housing: YES Difficulty Paying Gas/Electric Bills: YES Difficulty Paying for Meds: YES Currently Unemployed: YES Education: Bachelor's Degree Difficulty w/ Childcare or Family Care: No Additional living arrangements comments: Single. Moved to the area from [place] in mid 2023. Additional occupation/education comments: [employer] for 6 years. 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: No Anes - Eval Final PreProcedure Day of Procedure 09/24/24 07:43 Patient weight: morbidly obese Heart: regular rate and rhythm Lungs: clear to auscultation Airway: Mallampati scale class II Neurological: alert and oriented Last oral intake: >/= 8 hours ASA classification: IV Emergent: no Anesthetic plan: proceed Anesthesia type and monitoring: general GIVS and standard monitoring Results Review: All pre-operative results and documents have been reviewed as part of the pre- operative evaluation. Informed Consent: The patient's anesthetic plan and its attendant risks and benefits were discusse d with the patient/family/POA. Questions were solicited and answers provided to the satisfaction of the patient/family/POA.
[2024-09-24] MEDS: BENZOCAINE (*SP) 60 ML SPRAY CAN (HURRICAINE) 1 SPRAY MUCOUS MEM (08:25)
--- NOTE | 2024-09-24 08:30 | S_PTH ---
PATIENT: Daren Rome LOC: ANHICU U#:[id number] AGE/SX: 39/M ROOM: ICU RE09/25/[address]: Nikolas Webb MD : 1985 BED: 3 DIS: 09/25/2024 SPEC #: [id number] RECD: 09/24/24 10:25 STATUS: CHRIS REElliot #: [id number] CHIQUI: 09/24/24 08:[address]: Calos Adams DEPT: [facility] Surgical RECD BY: Lynne Sorensen ENTERED: 09/24/24 10:26 SP TYPE: Surgical OTHR DR: Tammy Ac, SPEEDER WORKER-C Emmanuel Sesay, TOOTH INSPECTOR Nikolas Webb MD Tissues: A - Small Bowel Bx B - Gastric Biopsy Procedures: Hematoxylin and Eosin Stain Gross and Microscopic Level 4
--- NOTE | 2024-09-24 08:55 | SUR.PHASEII ---
patients blood pressure was addressed with charge nurse. Patient was asked if he had any chest pain or symptoms and stated no. Floor nurse will be notified on patients blood pressure when returned to floor.
--- NOTE | 2024-09-24 09:00 | PC.NURSE ---
Patient returned to floor following EGD via stretcher. No patient complaints at this time.
[2024-09-24] MEDS: PANTOPRAZOLE 40 MG TABLET PO (09:05)
[2024-09-24] MEDS: SPIRONOLACTONE 25 MG TABLET PO (09:05)
[2024-09-24] MEDS: polyethylene glycoL 3350 17 GM POWD.PACK PO (09:05)
[2024-09-24] MEDS: hydrALAZINE HCL 25 MG TABLET PO ×4 (09:05→20:17)
[2024-09-24] MEDS: ASPIRIN 81 MG ENTERIC TABLET PO (09:05)
[2024-09-24] MEDS: FUROSEMIDE 40 MG TABLET PO (09:05)
[2024-09-24] MEDS: carvediloL 25 MG TABLET PO ×2 (09:05→16:36)
[2024-09-24] MEDS: lisinopriL 20 MG TABLET PO ×2 (09:05→09:52)
[2024-09-24] MEDS: FLUTICASONE PROPIONATE 0.05% NA SPR 16 GM BTL (*BKC) 1 SPRAY NASAL ×2 (09:06→20:21)
--- NOTE | 2024-09-24 10:23 | PM.CNCAR ---
Assessment and Plan Assessment and plan (1) Uncontrolled hypertension: Code(s): I10 - Essential (primary) hypertension Status: Acute Assessment and Plan: Presented with BP 212/139 mmHg. Gradually improving. Continue lisinopril 40mg daily Continue coreg 25mg b.i.d. Because of his diastolic dysfunction will add spironolactone 25mg daily. Could consider shifting lisinopril to Entresto if he could afford it Can also add amlodipine, but will assess his response to spironolactone first Avoid significant decrease in BP, gradually add agents to lower BP to goal (2) CHF (congestive heart failure): Code(s): I50.9 - Heart failure, unspecified Status: Acute Assessment and Plan: Does not appear to be in decompensated heart failure at this time. As above, adding spironolactone. (3) Chest pain: Code(s): R07.9 - Chest pain, unspecified Status: Acute Assessment and Plan: Atypical chest pain, resolved. Serial troponin levels negative. No ischemic changes on EKG, but prolonged QTc on most recent EKG, will repeat. Reportedly had LHC less than a year ago with no obstructive disease. History of Present Illness History of Present Illness Consult date/time: 09/24/24 10:23 Requesting physician: Nikolas Webb MD Consult reason: hypertension and congestive heart failure Reason For Visit: uncontrolled htn, chest pain Narrative: Daren Rome is a 39 year old male with hypertension, coronary artery disease, and diastolic heart failure. He comes to the hospital with a chief complaint of chest pain. He states he was showering and felt like someone was doing a finger stand on the center of his chest. His chest pain resolved with a GI cocktail in the ER. His cardiac history is a little unclear as he states he can't remember details and his medical care was received at a hospital in [place], but he can't remember which one. He does report that he had a coronary angiogram in February of 2024, but apparently no significant disease was found therefore he did not receive any stents. He also reports during his hospitalization his heart stopped for 14 seconds and a LifeVest was recommended but he was unable to afford it. He currently does not have any chest pain, shortness of breath, palpitations. Does report past episodes of syncope, the most recent of which occurred he estimates in May of this year. At the time of my evaluation he is resting comfortably in bed and has no complaints. Review of Systems Constitutional: Constitutional: Denies chills, Denies fever(s), Reports headache(s) and Denies malaise Eyes: Eyes: Denies change in vision ENT: Reports Normal hearing present, Denies dizziness, Denies headache(s) and Denies hearing loss Cardiovascular: Cardiovascular: Reports chest pain, Reports chest pain at rest, Denies chest pain with activity, Denies syncope, Denies leg edema, Denies palpitations, Reports dyspnea and Denies dyspnea on exertion Respiratory: Respiratory: Denies cough, Denies dyspnea, Denies dyspnea on exertion and Denies wheezing Gastrointestinal: Gastrointestinal: Denies abdominal pain, Denies constipation and Denies diarrhea Genitourinary: Genitourinary: Denies hematuria and Denies dysuria Musculoskeletal: Musculoskeletal: Denies myalgias, Denies arthralgias and Denies muscle cramps Integumentary/Breasts: Skin/Breast: Denies wounds Neurologic: Reports Normal hearing present, Denies confusion, Denies dizziness, Reports syncope and Denies headache(s) Psychiatric: Psychiatric: Denies anxiety, Denies confusion and Denies depression Endocrine: Endocrine: Denies cold intolerance, Denies flushing, Denies heat intolerance and Denies palpitations Hematologic/Lymphatic: Hematologic/Lymphatic: Denies easy bleeding and Denies easy bruising Allergic/Immunologic: Allergic/Immunologic: Denies wheezing PMFSH Past Medical History Medical History Nausea Non-cardiac chest pain Type 2 diabetes mellitus Pancreatitis Transient ischemic attack Hepatic steatosis (02/2024) Tobacco abuse disorder Asthma Kidney stones Morbid obesity with BMI of 40.0-44.9, adult Obstructive sleep apnea Patient never went and got a CPAP because he knew he could not afford it? Hypertensive cardiomyopathy Hypertensive heart disease Coronary artery disease Surgical History Surgical History Status post open reduction with internal fixation of fracture Left orbital fracture History of cardiac catheterization Family History Family History Mother Diabetes mellitus Social History Social History Social History: Surrogate medical decision maker: Zahida Rome, mother. Code status: Full code. Smoking packs per day: 0.5 Smoking cigarettes per day: 10.0 Years smoked: 23 Smoking pack-years: 11.50 Smoking status: Current every day smoker Alcohol intake: never Drinks per week: 1 Substance use: never Do You Feel Safe in your Home?: Yes Lack of Transportation: YES Lack of Food: Often True Current Housing: I Do Not Have Housing Concerned About Future Housing: YES Difficulty Paying Gas/Electric Bills: YES Difficulty Paying for Meds: YES Currently Unemployed: YES Education: Bachelor's Degree Difficulty w/ Childcare or Family Care: No Additional living arrangements comments: Single. Moved to the area from [place] in mid 2023. 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: No Meds Home Medications and Allergies Home Medications ?Medication ?Instructions ?Recorded ?Confirmed ?Type aspirin 81 mg tablet,delayed 81 mg PO DAILY 03/23/24 09/21/24 History release (Adult Low Dose Aspirin) furosemide 40 mg tablet 40 mg PO DAILY 03/23/24 09/21/24 History carvedilol 25 mg tablet (Coreg) 25 mg PO BIDWM #90 tabs 03/28/24 09/21/24 Rx lisinopril 10 mg tablet 20 mg (2 x 10 mg) PO DAILY #90 tabs 03/28/24 09/21/24 Rx metformin 500 mg tablet,extended 500 mg PO BID #90 tabs 03/28/24 09/21/24 Rx release 24 hr hydroxyzine HCl 25 mg tablet 25 mg PO TID PRN anxiety 09/21/24 09/21/24 History trazodone 100 mg tablet 100 mg PO HS PRN insomnia 09/21/24 09/21/24 History Allergies Allergy/AdvReac Type Severity Reaction Status Date / Time cat dander Allergy Itching Verified 09/24/24 07:20 RAGWEED Allergy Mild Itching Uncoded 09/24/24 07:20 Vital Signs Vital Signs - 24 hr 09/23/24 12:00 09/23/24 12:00 09/23/24 16:00 Temperature 36.5 C Pulse Rate 64 78 74 Respiratory Rate 18 Blood Pressure 154/96 H Pulse Oximetry 98 Oxygen Delivery Fraction of Inspired Oxygen 09/23/24 16:00 09/23/24 16:33 09/23/24 20:00 Temperature 36.3 C L Pulse Rate 67 74 60 Respiratory Rate 18 20 Blood Pressure 154/99 H Pulse Oximetry 100 95 Oxygen Delivery Room Air Fraction of Inspired Oxygen 21 09/23/24 20:00 09/23/24 20:30 09/23/24 21:16 Temperature 36.3 C L Pulse Rate 67 66 60 Respiratory Rate 18 20 Blood Pressure 158/94 H Pulse Oximetry 97 95 Oxygen Delivery Room Air Fraction of Inspired Oxygen 21 09/24/24 00:00 09/24/24 00:40 09/24/24 04:00 Temperature 36.4 C L Pulse Rate 70 71 68 Respiratory Rate 16 Blood Pressure 172/100 H Pulse Oximetry 100 Oxygen Delivery Fraction of Inspired Oxygen 09/24/24 05:30 09/24/24 07:10 09/24/24 08:00 Temperature 36.4 C L 36.0 C L Pulse Rate 66 74 72 Respiratory Rate 20 20 Blood Pressure 172/95 H 194/113 H Pulse Oximetry 96 99 Oxygen Delivery Room Air Fraction of Inspired Oxygen 09/24/24 08:35 09/24/24 08:45 09/24/24 08:55 Temperature Pulse Rate 83 81 75 Respiratory Rate 25 H 20 19 Blood Pressure 191/121 H 186/119 H 183/118 H Pulse Oximetry 99 99 99 Oxygen Delivery Room Air Room Air Room Air Fraction of Inspired Oxygen 09/24/24 09:05 09/24/24 09:05 Temperature Pulse Rate 75 Respiratory Rate Blood Pressure Pulse Oximetry Oxygen Delivery Room Air Fraction of Inspired Oxygen Exam Const: General: comfortable, no acute distress, alert and awake Orientation/consciousness: patient oriented x3 HENMT: Head: normal to inspection Eyes: General: appearance normal, both eyes and all related structures Pupils: Equal, round and reactive pupils present Neck: Neck: normal visual inspection, supple and no JVD Carotids: normal carotid upstroke Resp: Effort & Inspection: normal respiratory effort Auscultation: clear to auscultation bilaterally and diminished lung sounds Cardio: Rate: regular rate Rhythm: regular rhythm Heart sounds: S1 normal heart sound present, S2 normal heart sound present and no murmurs GI: Auscultation: normal bowel sounds Skin: General skin exam: normal color Neuro: General: patient oriented x3 Cranial nerves: Yes Equal, round and reactive pupils present Extrem: General: normal to inspection Psych: Appearance: grossly normal Mental Status: mental status grossly normal Results Labs and Meds 09/24/24 04:35 09/24/24 04:35 Lab results: Cardiac Enzymes 09/24/24 Range/Units 04:35 AST 20 (17-59) U/L CBC 09/24/24 Range/Units 04:35 WBC 6.9 (4.5-10.0) K/mm3 RBC 5.02 (4.6-6.20) M/mm3 Hgb 12.6 L (14.0-18.0) g/dL Hct 42.2 (42.0-52.0) % Plt Count 301 (150-375) k/mm3 Lymph # (Auto) 1.27 (0.9-3.2) K/mm3 [place] # (Auto) 0.7 H (0.1-0.6) K/mm3 Eos # (Auto) 0.4 H (0-0.3) K/mm3 Baso # (Auto) 0.1 (0.0-0.1) K/mm3 Comprehensive Metabolic Panel 09/24/24 Range/Units 04:35 Sodium 138 (137-145) mmol/L Potassium 3.4 (3.4-5.0) mmol/L Chloride 101 (98-107) mmol/L Carbon Dioxide 28 (22-30) mmol/L BUN 22 H (9-20) mg/dL Creatinine 1.00 (0.7-1.3) mg/dL Glucose 135 H (65-110) mg/dL Calcium 9.0 (8.4-10.2) mg/dL AST 20 (17-59) U/L ALT 21 (6-50) U/L Alkaline Phosphatase 74 (38-126) U/L Total Protein 7.0 (6.3-8.2) g/dL Albumin 4.0 (3.5-5.1) g/dL Intake and Output 09/23/24 09/24/24 09/24/24 23:59 07:59 15:59 Intake Total 360 600 480 Balance 360 600 480 Intake: IV 0 Lactated Ringers 1,000 ml @ 150 0 mls/hr IV CONT .[id number] [facility] Rx# :[id number] Oral 360 [id number] Other: # Unmeasured Voids 3 1 Patient Weight 09/24/24 23:59 Weight 179 kg
--- NOTE | 2024-09-24 10:57 | PC.NURSE ---
DEBORA Goss updated on BP and patient requesting medication for restless leg.
--- NOTE | 2024-09-24 12:28 | ECG_ITS ---
Test Date: 2024-09-24 12:59:58 Measurements Intervals [place] Rate: 71 P: 46 MI: 177 QRS: -1 QRSD: 101 T: -21 QT: 433 QTc: 473 Interpretive Statements SINUS RHYTHM BORDERLINE ST-T WAVE ABNORMALITY- INF/HIGH LAT LEADS BORDERLINE ECG Compared to ECG 09/21/2024 11:18:17 Prolonged QT interval no longer present T-wave abnormality still present Electronically Signed On 09-24-2024 15:25:10 CDT by Per Restrepo D.O.
[2024-09-24 12:39] LABS: Glucose Point of Care 172 mg/dl (65-105)
--- NOTE | 2024-09-24 13:58 | PM.IMPN ---
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: without mcfp use Diabetes mellitus complication status: with hyperglycemia Qualified Code(s): E11.65 - Type 2 diabetes mellitus with hyperglycemia Code(s): E11.9 - Type 2 diabetes mellitus without complications Status: Acute (5) Obstructive sleep apnea: Code(s): G47.33 - Obstructive sleep apnea (adult) (pediatric) Status: Acute (6) Tobacco abuse disorder: Code(s): Z72.0 - Tobacco use Status: Acute (7) Depression: Code(s): F32.A - Depression, unspecified Status: Acute Plan This is a 39-year-old male with history of cerebrovascular accident and myocardial infarction due to hypertensive disease, historically poorly controlled hypertension, type 2 diabetes mellitus, untreated obstructive sleep apnea, pancreatitis, hepatic steatosis, morbid obesity, and anxiety who presented to the emergency department via EMS for evaluation of chest pain. His symptoms began about 3 hours prior to arrival while taking a shower. He describes a pushing sensation just left of the mid sternum radiating somewhat into the left arm and hand. He felt a bit short of breath with that and endorses nausea as well. The pain is not reproducible on palpation. He has not noticed any significant aggravating factors but reports that a GI cocktail helped immensely. With further questioning he reports having significant GERD symptoms, worse recently, for which he has been taking Tums often. He also endorses bloating and belching and frequent epigastric discomfort. He denies syncope, near syncope, pleuritic pain, palpitations, cough, hematemesis, melena, hematochezia, and calf pain. Of note the patient's nurse called me to report that the patient has been feeling increasingly depressed. He has no thoughts of suicide and no plan but is asking to see a psychiatrist while in the hospital. In the ED: Blood pressure was 212/139 on arrival. Labs were significant for WBC count of 10.1, hemoglobin 13.1, glucose 160, troponin less than 0.012, proBNP 1870. CT of the chest, abdomen, and pelvis showed no acute findings but did note enlargement of the central pulmonary arteries consistent with pulmonary arterial hypertension, diffuse hepatic steatosis, and mild edematous appearing gallbladder wall thickening versus trace amount of pericholecystic fluid. Right upper quadrant ultrasound was normal. EKG showed sinus rhythm with nonspecific ST T-wave abnormalities. He was given a GI cocktail and hydralazine 10 mg IV and he is being admitted in this setting for close monitoring. Accelerated hypertension improved with p.r.n. hydralazine. Currently on lisinopril 20 mg carvedilol 25 mg b.i.d. Lasix 40 mg daily. Amlodipine was discontinued in the past due to leg swelling. Hydralazine was added which had helped. Added back hydralazine. Does not seem to be on spironolactone anymore. Added spironolactone 25 mg daily. Echo reviewed. Up titrate lisinopril to 40 mg daily. Atypical chest pain troponin trend negative. Suspected GI/GERD related. GI has been consulted. potentially EGD on Tuesday Right upper quadrant pain/discomfort. CTA showed some mildly edematous appearing gallbladder wall thickening versus trace amount of pericholecystic fluid with no gallbladder dilation not evident cholelithiasis on recent MRI/MRCP. Follow-up right upper quadrant ultrasound was unremarkable. EGD came back normal 09/24/2024 Pulmonary arterial hypertension: Echo with EF 45-50% severe MR moderate TR grade 4 diastolic dysfunction moderate concentric left ventricular thickness. Already on carvedilol and lisinopril. Add spironolactone. History of cardiomyopathy with ejection fraction less than 20% in the fast cardiac catheterization at that time showed no coronary artery disease. Been diagnosed with sleep apnea long time ago was suggested CPAP but not on treatment because of cost. Apnea 04/2024 with AHI 9.9. fu with pcp for sleepapnea testing and possibly start CPAP. Headache CT head was negative. Shows left maxillary sinusitis clinically no acute sinusitis. Added Flonase Type 2 diabetes on metformin Anxiety depression: Follow up with Psychiatry as outpatient basis. Crisis team to see prior to discharge. DVT prophylaxis Lovenox code status full code Subjective Date/time seen: 09/24/24 13:58 Interval history: Underwent EGD today. This was unremarkable. Blood pressure still not optimal. Review of Systems Review of Systems: All systems reviewed & are unremarkable except as noted in HPI and below Exam Narrative: General: Well-developed, nontoxic-appearing male sitting up in bed in no acute distress. HEENT: PERRL, EOMI. Sclera anicteric. Oral mucosa moist. Crowded oropharynx. Neck: Supple. Limited due to neck circumference. Respiratory: Lungs are clear to auscultation bilaterally. Cardiovascular: Regular rate and rhythm with S1-S2. No murmur, rub, or gallop. Gastrointestinal: Abdomen is soft, obese, nontender, and nondistended with positive bowel sounds. Skin: Warm and dry. No rash or lesions on limited exam. Extremities: No cyanosis or clubbing. 1+ bilateral lower extremity edema. No palpable knots or cords. Neurological: Alert. Cranial nerves 2-12 are grossly intact. No gross focal deficits to casual conversation. Psychiatric: Pleasant and cooperative with appropriate mood and depressed affect. Objective Data Vital Signs Vital Signs: Vital Signs - 24 hr 09/23/24 16:00 09/23/24 16:00 09/23/24 16:33 Temperature 97.4 F L Pulse Rate 74 67 74 Respiratory Rate 18 Blood Pressure 154/99 H Pulse Oximetry 100 Oxygen Delivery Fraction of Inspired Oxygen 09/23/24 20:00 09/23/24 20:00 09/23/24 20:30 Temperature 97.4 F L Pulse Rate 60 67 66 Respiratory Rate 20 18 Blood Pressure 158/94 H Pulse Oximetry 95 97 Oxygen Delivery Room Air Fraction of Inspired Oxygen 09/23/24 21:16 09/24/24 00:00 09/24/24 00:40 Temperature 97.5 F L Pulse Rate 60 70 71 Respiratory Rate 20 16 Blood Pressure 172/100 H Pulse Oximetry 95 100 Oxygen Delivery Room Air Fraction of Inspired Oxygen 09/24/24 04:00 09/24/24 05:30 09/24/24 07:10 Temperature 97.5 F L 96.8 F L Pulse Rate 68 66 74 Respiratory Rate 20 20 Blood Pressure 172/95 H 194/113 H Pulse Oximetry 96 99 Oxygen Delivery Room Air Fraction of Inspired Oxygen 09/24/24 08:00 09/24/24 08:35 09/24/24 08:45 Temperature Pulse Rate 72 83 81 Respiratory Rate 25 H 20 Blood Pressure 191/121 H 186/119 H Pulse Oximetry 99 99 Oxygen Delivery Room Air Room Air Fraction of Inspired Oxygen 09/24/24 08:55 09/24/24 09:05 09/24/24 09:05 Temperature Pulse Rate 75 75 Respiratory Rate 19 Blood Pressure 183/118 H Pulse Oximetry 99 Oxygen Delivery Room Air Room Air Fraction of Inspired Oxygen 09/24/24 12:00 09/24/24 12:40 Temperature 98.1 F Pulse Rate 77 66 Respiratory Rate 18 Blood Pressure 168/87 H Pulse Oximetry 96 Oxygen Delivery Fraction of Inspired Oxygen Intake/Output Intake/Output: Intake & Output 09/21/24 09/22/24 09/23/24 09/24/24 23:59 23:59 23:59 23:59 Intake Total 975 426 3916 1080 Output Total 450 Balance 102 843 7574 1080 Meds/Results Medications: Active Medications Generic Name Dose Route Start Last Admin Trade Name Freq PRN Reason Stop Dose Admin Acetaminophen 650 mg 09/21/24 13:07 09/23/24 22:09 Acetaminophen 325 Mg Tablet PO 650 mg Q4H PRN Administration Mild Pain (1-3) or Fever Hydrocodone Bitart/Acetaminophen 1 tab 09/21/24 13:07 09/23/24 06:02 Hydrocodone/Acetaminophen (*Crx) 5-325 Mg Tablet PO 1 tab Q4H PRN Administration Pain Rated 4-6 Albuterol 2 puff 09/21/24 15:54 Albuterol Sulfate (*Sp) Aerosol 1 Puff INHALATION Q6HRT PRN Shortness Of Breath Aspirin 81 mg 09/22/24 09:00 09/24/24 09:05 Aspirin 81 Mg Enteric Tablet PO 81 mg DAILY VIKY Administration Carvedilol 25 mg 09/21/24 17:00 09/24/24 09:05 Carvedilol 25 Mg Tablet PO 25 mg BIDWM VIKY Administration Dextrose 12.5 gm 09/21/24 15:31 Dextrose 50% 25 Gm/50 Ml Syringe IV PUSH PRN PRN Hypoglycemia Protocol Enoxaparin Sodium 40 mg 09/22/24 09:00 09/24/24 09:05 Enoxaparin 40 Mg/0.4 Ml Syringe SUB-Q Not Given DAILY VIKY Fluticasone Propionate 1 spray 09/23/24 21:00 09/24/24 09:06 Fluticasone Propionate 0.05% Na Spr 16 Gm Btl (*Bkc) NASAL 1 spray Q12HR VIKY Administration Furosemide 40 mg 09/22/24 09:00 09/24/24 09:05 Furosemide 40 Mg Tablet PO 40 mg DAILY VIKY Administration Glucagon 1 mg 09/21/24 15:31 Glucagon For Inj 1 Mg Vial IM PRN PRN Hypoglycemia Protocol Glucose 15 gm 09/21/24 15:31 Glucose Oral Gel 15 Gm Of Glucse In 37.5 Gm Tube PO PRN PRN Hypoglycemia Protocol Hydralazine HCl 10 mg 09/21/24 13:07 09/24/24 01:17 Hydralazine Hcl 20 Mg/Ml Vial IV PUSH 10 mg Q8H PRN Administration SBP > 165 or DBP > 105 Hydralazine HCl 25 mg 09/22/24 09:00 09/24/24 12:03 Hydralazine Hcl 25 Mg Tablet PO 25 mg QID VIKY Administration Hydroxyzine HCl 25 mg 09/21/24 15:44 09/23/24 22:10 Hydroxyzine Hcl 25 Mg Tablet PO 25 mg TID PRN Administration anxiety Dextrose 1,000 mls @ 100 mls/hr 09/21/24 15:31 Dextrose 5% 1,000 Ml IVPB PRN PRN Hypoglycemia Protocol Insulin Aspart 3 - 6 units 09/21/24 17:00 09/24/24 12:02 Insulin Aspart (*Bkc) 100 Units/Ml SUB-Q Not Given TIDWM [facility] Protocol Insulin Aspart 1 - 3 units 09/21/24 21:00 09/23/24 22:10 Insulin Aspart (*Bkc) 100 Units/Ml SUB-Q Not Given HS [facility] Protocol Lisinopril 40 mg 09/25/24 09:00 Lisinopril 20 Mg Tablet PO DAILY [facility] Morphine Sulfate 4 mg 09/21/24 13:07 09/21/24 21:30 Morphine Sulfate (*Crx) 4 Mg/Ml Inj IV PUSH 4 mg Q2H PRN Administration Pain Rated 7-10 Ondansetron HCl 4 mg 09/21/24 13:07 09/21/24 21:39 Ondansetron Inj 4 Mg/2 Ml Vial IV PUSH 4 mg Q4H PRN Administration Nausea Pantoprazole Sodium 40 mg 09/22/24 09:00 09/24/24 09:05 Pantoprazole 40 Mg Tablet PO 40 mg QAM VIKY Administration Polyethylene Glycol 17 gm 09/23/24 18:25 09/24/24 09:05 Polyethylene Glycol 3350 17 Gm Powd.Pack PO 17 gm QAM VIKY Administration Spironolactone 25 mg 09/23/24 13:40 09/24/24 09:05 Spironolactone 25 Mg Tablet PO 25 mg QAM VIKY Administration Spironolactone 25 mg 09/25/24 09:00 Spironolactone 25 Mg Tablet PO QAM VIKY Trazodone HCl 100 mg 09/21/24 15:44 09/23/24 22:09 Trazodone Hcl 50 Mg Tablet PO 100 mg HS PRN Administration insomnia Radiology Results: ITS Impressions Chest X-Ray 09/21/24 08:46 IMPRESSION: No focal infiltrate or effusion. Chest/Abdomen/Pelvis CTA 09/21/24 09:55 IMPRESSION: 1. Normal caliber aorta with no dissection or other acute cardiopulmonary disease. 2. Enlargement of the central pulmonary arteries consistent with pulmonary arterial hypertension. 3. Diffuse hepatic steatosis. 4. Mild edematous-appearing gallbladder wall thickening versus trace amount of pericholecystic fluid with no gallbladder dilation nor evident cholelithiasis on recent MRI/MRCP to suggest acute cholecystitis. Differential would include chronic cholecystitis, liver, heart, renal disease or other generalized edema forming states. ADDENDUM: 09/24/24 1252 ADDENDUM: There is some concern for renal artery stenosis. There is no evident atherosclerotic plaque or stenosis in the abdominal aorta, the bilateral renal arteries, celiac axis, superior or inferior mesenteric arteries. Upper Quadrant Ultrasound 09/21/24 11:10 Impression: No significant abnormality seen. Head CT 09/22/24 12:10 IMPRESSION: 1. No acute intracranial abnormality. 2: Moderate left maxillary sinusitis. Labs Labs: Laboratory Results - last 24 hr 09/23/24 09/23/24 09/24/24 17:05 20:39 04:35 WBC 6.9 RBC 5.02 Hgb 12.6 L Hct 42.2 MCV 84.1 MCH 25.1 L MCHC 29.9 L RDW 15.3 H Plt Count 301 MPV 10.8 H Immature Gran % (Auto) 0.3 Neut % (Auto) 63.7 Lymph % (Auto) 18.5 [place] % (Auto) 10.5 H Eos % (Auto) 6.1 H Baso % (Auto) 0.9 Lymph # (Auto) 1.27 [place] # (Auto) 0.7 H Eos # (Auto) 0.4 H Baso # (Auto) 0.1 Abs Immat Gran (auto) 0.02 Absolute Neuts (auto) 4.4 Absolute Nucleated RBC 0.000 Nucleated RBC % 0.0 Sodium 138 Potassium 3.4 Chloride 101 Carbon Dioxide 28 Anion Gap 9 BUN 22 H Creatinine 1.00 Estim Creat Clear Calc 157 Estimated GFR > 60 Glucose 135 H POC Capillary Glucose 115 H 161 H Calcium 9.0 Magnesium 2.4 H Total Bilirubin 0.7 AST 20 ALT 21 Alkaline Phosphatase 74 Total Protein 7.0 Albumin 4.0 09/24/24 09/24/24 07:16 11:51 WBC RBC Hgb Hct MCV MCH MCHC RDW Plt Count MPV Immature Gran % (Auto) Neut % (Auto) Lymph % (Auto) [place] % (Auto) Eos % (Auto) Baso % (Auto) Lymph # (Auto) [place] # (Auto) Eos # (Auto) Baso # (Auto) Abs Immat Gran (auto) Absolute Neuts (auto) Absolute Nucleated RBC Nucleated RBC % Sodium Potassium Chloride Carbon Dioxide Anion Gap BUN Creatinine Estim Creat Clear Calc Estimated GFR Glucose POC Capillary Glucose 140 H 172 H Calcium Magnesium Total Bilirubin AST ALT Alkaline Phosphatase Total Protein Albumin
[2024-09-24 16:31] LABS: Glucose Point of Care 150 mg/dl (65-105)
--- NOTE | 2024-09-24 16:42 | PC.NURSE ---
Spoke with Dr. Webb regarding pt coming to unit for SI precautions. Clarified inpatient status. stated that patient was not an ICU status patient, that he just needs suicide precautions initiated. Asked to place order for transfer to medical/surg then with tele orders which patient already had. said yes.
--- NOTE | 2024-09-24 17:55 | PC.NURSE ---
This patient, Daren Rome, was transferred to ICU on 09/24/24 at 1755. Personal belongings sent with patient. Report given to Slime CASEY. Appropriate documentation sent with patient.
--- NOTE | 2024-09-24 17:58 | PC.NURSE ---
Patient transfered from room 260 to ICU 4 per wheelchair. Suicide precautions in place. Sitter at bedside. Rules and Policies explained to patient.
[2024-09-24] MEDS: traZODone HCL 50 MG TABLET 100 MG PO (20:17)
[2024-09-24] MEDS: hydrOXYzine HCL 25 MG TABLET PO (20:21)
[2024-09-24 20:27] LABS: Glucose Point of Care 133 mg/dl (65-105)
--- NOTE | 2024-09-24 21:19 | PC.NURSE ---
DEBORA Goss updated on patient BP and anti-hypertensives given.
[2024-09-25] VITALS (8 sets, daily range): BP systolic 147–214; BP diastolic 72–119; PULSE 70–80; RESP 15–21; TEMP 36.5–36.6; O2SAT 98–100
[2024-09-25] MEDS: LORazepam INJ (*CRX) 2 MG/ML VIAL 1 MG IV PUSH (02:05)
[2024-09-25 04:17] LABS: Basophils Absolute Auto 0.1 K/mm3 (0.0-0.1); Eosinophils Absolute Auto 0.4 K/mm3 (0-0.3); Eosinophils Percent Auto 5.3 % (0-4.4); Hematocrit 42.1 % (42.0-52.0); Hemoglobin 12.7 g/dL (14.0-18.0); Immature Granulocyte Absolute 0.01 K/mm3 (0.00-0.031); Immature Granulocyte Percent A 0.1 % (0-0.5); Lymphocytes Absolute Auto 1.27 K/mm3 (0.9-3.2); Lymphocytes Percent Auto 18.8 % (18.3-44.2); Mean Corpuscular HGB Conc 30.2 g/dl (32-36); Mean Corpuscular Hemoglobin 25.2 pg (26-34); Mean Corpuscular Volume 83.5 fl (80-100); Mean Platelet Volume 10.4 fl (7.4-10.4); Monocytes Absolute Auto 0.6 K/mm3 (0.1-0.6); Monocytes Percent Auto 9.3 % (2.6-8.5); Neutrophils Absolute Auto 4.4 K/mm3 (1.3-6.7); Neutrophils Percent Auto 65.5 % (45.5-73.1); Platelet Count Result 293 k/mm3 (150-375); Red Blood Count 5.04 M/mm3 (4.6-6.20); Red Cell Distribution Width 15.3 % (11.5-14.5); White Blood Count 6.8 K/mm3 (4.5-10.0)
[2024-09-25 04:32] LABS: Alanine Aminotransferase 20 U/L (6-50); Albumin Level 3.9 g/dL (3.5-5.1); Alkaline Phosphatase 74 U/L (38-126); Anion Gap 6 mmol/L (4-12); Aspartate Amino Transferase 21 U/L (17-59); Bilirubin,Total 0.8 mg/dL (0.2-1.3); Blood Urea Nitrogen 17 mg/dL (9-20); Calcium 9.1 mg/dL (8.4-10.2); Carbon Dioxide 29 mmol/L (22-30); Chloride 104 mmol/L (98-107); Estimated CRCL calculation 183 ml/min; Estimated Glomerular Filt Rate > 60; Glucose 128 mg/dL (65-110); Magnesium 2.3 mg/dL (1.6-2.3); Potassium 3.4 mmol/L (3.4-5.0); Sodium 139 mmol/L (137-145)
[2024-09-25] MEDS: hydrALAZINE HCL 20 MG/ML VIAL 10 MG IV PUSH (05:32)
[2024-09-25] MEDS: ASPIRIN 81 MG ENTERIC TABLET PO (05:42)
[2024-09-25] MEDS: lisinopriL 20 MG TABLET 40 MG PO (05:43)
[2024-09-25] MEDS: SPIRONOLACTONE 25 MG TABLET PO ×2 (05:43→05:44)
[2024-09-25] MEDS: hydrALAZINE HCL 25 MG TABLET PO ×4 (05:44→20:07)
[2024-09-25] MEDS: FUROSEMIDE 40 MG TABLET PO (05:44)
[2024-09-25] MEDS: carvediloL 25 MG TABLET PO ×2 (05:44→16:11)
[2024-09-25 07:47] LABS: Glucose Point of Care 149 mg/dl (65-105)
[2024-09-25] MEDS: FLUTICASONE PROPIONATE 0.05% NA SPR 16 GM BTL (*BKC) 1 SPRAY NASAL (08:37)
[2024-09-25] MEDS: metFORMIN HCL 500 MG TABLET PO ×2 (08:37→16:11)
[2024-09-25] MEDS: polyethylene glycoL 3350 17 GM POWD.PACK PO (08:37)
[2024-09-25] MEDS: PANTOPRAZOLE 40 MG TABLET PO (08:37)
[2024-09-25] MEDS: ENOXAPARIN 40 MG/0.4 ML SYRINGE SUB-Q (08:37)
--- NOTE | 2024-09-25 09:02 | P.PNIM_ITS ---
Progress Note: A&P Assessment and Plan (1) Uncontrolled hypertension: Code(s): I10 - Essential (primary) hypertension Status: Acute Assessment and Plan: Blood pressure is elevated through the night. He was given his p.o. medications in the morning Continue Coreg lisinopril spironolactone hydralazine, Lasix Monitor and adjust blood pressure (2) Chest pain: Code(s): R07.9 - Chest pain, unspecified Status: Acute Assessment and Plan: Atypical chest pain troponin trend negative. No ischemic changes on EKG. Evaluated by Cardiology. No further recommendations. CTA showed some mildly edematous appearing gallbladder wall thickening versus trace amount of pericholecystic fluid with no gallbladder dilation not evident cholelithiasis on recent MRI/MRCP. Follow-up right upper quadrant ultrasound was unremarkable. EGD came back normal 09/24/2024 (3) Enlarged pulmonary artery: Code(s): I28.8 - Other diseases of pulmonary vessels Status: Acute Assessment and Plan: Pulmonary hypertension on echocardiogram (4) Type 2 diabetes mellitus: Qualifiers: Diabetes mellitus terminal system operator insulin use: without terminal system operator use Diabetes mellitus complication status: with hyperglycemia Qualified Code(s): E11.65 - Type 2 diabetes mellitus with hyperglycemia Code(s): E11.9 - Type 2 diabetes mellitus without complications Status: Acute Assessment and Plan: Continue sliding scale insulin Resume metformin (5) Obstructive sleep apnea: Code(s): G47.33 - Obstructive sleep apnea (adult) (pediatric) Status: Acute Assessment and Plan: Supplemental oxygen. Patient will need evaluation as an outpatient (6) Tobacco abuse disorder: Code(s): Z72.0 - Tobacco use Status: Acute (7) Depression: Code(s): F32.A - Depression, unspecified Status: Acute Assessment and Plan: Patient exhibited suicidal ideation to the provider yesterday. Now he is drowsy and unable to provide any further history. He will be under one-to-one observation. Once his medical issues are improved I will consult Psychiatry as he is currently not on any treatment. Plan DVT prophylaxis Lovenox code status full code Subjective Date/time seen: 09/25/24 Patient was transferred last night to IMU for one-to-one monitoring as patient mentioned suicidal ideation to the provider yesterday. Patient also stated that he was unable to sleep and was given Ativan. He also had elevated blood pressure. This morning when I saw him he is drowsy and sleepy but easily arousable and answer some questions. He states he has headache which has been going on since he came to the hospital. He rates at 8/10. He wakes up follows commands answer some questions and falls back to sleep. He denies any chest pain shortness a breath nausea vomiting. Noted dizziness lightheadedness. Review of system is positive for restless legs. All other systems were reviewed and were negative Review of Systems Review of Systems: All systems reviewed & are unremarkable except as noted in HPI and below (HPI) Exam Narrative: General: Well-developed, nontoxic-appearing male sleeping HEENT: PERRL, EOMI. Sclera anicteric. Oral mucosa moist. Crowded oropharynx. Neck: Supple. Limited due to neck circumference. Respiratory: Lungs are clear to auscultation bilaterally. Cardiovascular: Regular rate and rhythm with S1-S2. No murmur, rub, or gallop. Gastrointestinal: Abdomen is soft, obese, nontender, and nondistended with positive bowel sounds. Skin: Warm and dry. No rash or lesions on limited exam. Extremities: No cyanosis or clubbing. 1+ bilateral lower extremity edema. No palpable knots or cords. Neurological: He is drowsy has has he received Ativan but easily arousable and follows commands with all 4 extremities.. No facial asymmetry, PERRL Psychiatric: Unable to assess at this time as patient is drowsy. Objective Data Vital Signs Vital Signs: Vital Signs - 24 hr 09/24/24 09:05 09/24/24 09:05 09/24/24 12:00 Temperature Pulse Rate 75 77 Respiratory Rate Blood Pressure Pulse Oximetry Oxygen Delivery Room Air Fraction of Inspired Oxygen 09/24/24 12:40 09/24/24 16:00 09/24/24 16:36 Temperature 36.7 C Pulse Rate 66 65 74 Respiratory Rate 18 Blood Pressure 168/87 H Pulse Oximetry 96 Oxygen Delivery Fraction of Inspired Oxygen 09/24/24 16:59 09/24/24 18:03 09/24/24 20:00 Temperature 36.3 C L 36.5 C Pulse Rate 69 69 74 Respiratory Rate 16 12 12 Blood Pressure 174/105 H 183/112 H 174/109 H Pulse Oximetry 99 99 97 Oxygen Delivery Fraction of Inspired Oxygen 09/24/24 20:00 09/24/24 20:00 09/24/24 20:59 Temperature Pulse Rate 74 72 Respiratory Rate 12 Blood Pressure Pulse Oximetry 97 97 Oxygen Delivery Room Air Room Air Fraction of Inspired Oxygen 21 21 09/25/24 00:00 09/25/24 00:00 09/25/24 04:00 Temperature 36.5 C Pulse Rate 72 72 75 Respiratory Rate 15 Blood Pressure 173/104 H Pulse Oximetry 98 Oxygen Delivery Fraction of Inspired Oxygen 09/25/24 05:32 09/25/24 05:44 09/25/24 07:00 Temperature 36.5 C Pulse Rate 78 76 73 Respiratory Rate 18 Blood Pressure 214/119 H 147/72 H Pulse Oximetry 100 Oxygen Delivery Fraction of Inspired Oxygen 09/25/24 08:00 09/25/24 08:00 09/25/24 08:00 Temperature Pulse Rate 70 75 Respiratory Rate 16 Blood Pressure 147/72 H Pulse Oximetry Oxygen Delivery Room Air Fraction of Inspired Oxygen Intake/Output Intake/Output: Intake & Output 09/22/24 09/23/24 09/24/24 09/25/24 23:59 23:59 23:59 23:59 Intake Total 980 1330 1680 750 Output Total 450 800 Balance 530 1330 1680 -50 Meds/Results Medications: Active Medications Generic Name Dose Route Start Last Admin Trade Name Freq PRN Reason Stop Dose Admin Acetaminophen 650 mg 09/21/24 13:07 09/23/24 22:09 Acetaminophen 325 Mg Tablet PO 650 mg Q4H PRN Administration Mild Pain (1-3) or Fever Hydrocodone Bitart/Acetaminophen 1 tab 09/21/24 13:07 09/23/24 06:02 Hydrocodone/Acetaminophen (*Crx) 5-325 Mg Tablet PO 1 tab Q4H PRN Administration Pain Rated 4-6 Albuterol 2 puff 09/21/24 15:54 Albuterol Sulfate (*Sp) Aerosol 1 Puff INHALATION Q6HRT PRN Shortness Of Breath Aspirin 81 mg 09/22/24 09:00 09/25/24 05:42 Aspirin 81 Mg Enteric Tablet PO 81 mg DAILY VIKY Administration Carvedilol 25 mg 09/21/24 17:00 09/25/24 05:44 Carvedilol 25 Mg Tablet PO 25 mg BIDWM VIKY Administration Dextrose 12.5 gm 09/21/24 15:31 Dextrose 50% 25 Gm/50 Ml Syringe IV PUSH PRN PRN Hypoglycemia Protocol Enoxaparin Sodium 40 mg 09/22/24 09:00 09/25/24 08:37 Enoxaparin 40 Mg/0.4 Ml Syringe SUB-Q 40 mg DAILY VIKY Administration Fluticasone Propionate 1 spray 09/23/24 21:00 09/25/24 08:37 Fluticasone Propionate 0.05% Na Spr 16 Gm Btl (*Bkc) NASAL 1 spray Q12HR VIKY Administration Furosemide 40 mg 09/22/24 09:00 09/25/24 05:44 Furosemide 40 Mg Tablet PO 40 mg DAILY VIKY Administration Glucagon 1 mg 09/21/24 15:31 Glucagon For Inj 1 Mg Vial IM PRN PRN Hypoglycemia Protocol Glucose 15 gm 09/21/24 15:31 Glucose Oral Gel 15 Gm Of Glucse In 37.5 Gm Tube PO PRN PRN Hypoglycemia Protocol Hydralazine HCl 25 mg 09/22/24 09:00 09/25/24 05:44 Hydralazine Hcl 25 Mg Tablet PO 25 mg QID VIKY Administration Hydralazine HCl 10 mg 09/24/24 23:01 09/25/24 05:32 Hydralazine Hcl 20 Mg/Ml Vial IV PUSH 10 mg Q4H PRN Administration SBP > 165 or DBP > 105 Hydroxyzine HCl 25 mg 09/21/24 15:44 09/24/24 20:21 Hydroxyzine Hcl 25 Mg Tablet PO 25 mg TID PRN Administration anxiety Dextrose 1,000 mls @ 100 mls/hr 09/21/24 15:31 Dextrose 5% 1,000 Ml IVPB PRN PRN Hypoglycemia Protocol Insulin Aspart 3 - 6 units 09/21/24 17:00 09/25/24 07:51 Insulin Aspart (*Bkc) 100 Units/Ml SUB-Q Not Given TIDWM [facility] Protocol Insulin Aspart 1 - 3 units 09/21/24 21:00 09/24/24 20:58 Insulin Aspart (*Bkc) 100 Units/Ml SUB-Q Not Given HS VIKY Protocol Lisinopril 40 mg 09/25/24 09:00 09/25/24 05:43 Lisinopril 20 Mg Tablet PO 40 mg DAILY VIKY Administration Metformin HCl 500 mg 09/25/24 08:00 09/25/24 08:37 Metformin Hcl 500 Mg Tablet PO 500 mg BIDWM VIKY Administration Morphine Sulfate 4 mg 09/21/24 13:07 09/21/24 21:30 Morphine Sulfate (*Crx) 4 Mg/Ml Inj IV PUSH 4 mg Q2H PRN Administration Pain Rated 7-10 Ondansetron HCl 4 mg 09/21/24 13:07 09/21/24 21:39 Ondansetron Inj 4 Mg/2 Ml Vial IV PUSH 4 mg Q4H PRN Administration Nausea Pantoprazole Sodium 40 mg 09/22/24 09:00 09/25/24 08:37 Pantoprazole 40 Mg Tablet PO 40 mg QAM VIKY Administration Polyethylene Glycol 17 gm 09/23/24 18:25 09/25/24 08:37 Polyethylene Glycol 3350 17 Gm Powd.Pack PO 17 gm QAM VIKY Administration Spironolactone 25 mg 09/25/24 09:00 09/25/24 05:44 Spironolactone 25 Mg Tablet PO 25 mg QAM VIKY Administration Trazodone HCl 100 mg 09/21/24 15:44 09/24/24 20:17 Trazodone Hcl 50 Mg Tablet PO 100 mg HS PRN Administration insomnia Radiology Results: ITS Impressions Chest X-Ray 09/21/24 08:46 IMPRESSION: No focal infiltrate or effusion. Chest/Abdomen/Pelvis CTA 09/21/24 09:55 IMPRESSION: 1. Normal caliber aorta with no dissection or other acute cardiopulmonary disease. 2. Enlargement of the central pulmonary arteries consistent with pulmonary arterial hypertension. 3. Diffuse hepatic steatosis. 4. Mild edematous-appearing gallbladder wall thickening versus trace amount of pericholecystic fluid with no gallbladder dilation nor evident cholelithiasis on recent MRI/MRCP to suggest acute cholecystitis. Differential would include chronic cholecystitis, liver, heart, renal disease or other generalized edema forming states. ADDENDUM: 09/24/24 1252 ADDENDUM: There is some concern for renal artery stenosis. There is no evident atherosclerotic plaque or stenosis in the abdominal aorta, the bilateral renal arteries, celiac axis, superior or inferior mesenteric arteries. Upper Quadrant Ultrasound 09/21/24 11:10 Impression: No significant abnormality seen. Head CT 09/22/24 12:10 IMPRESSION: 1. No acute intracranial abnormality. 2: Moderate left maxillary sinusitis. Labs Labs: Laboratory Results - last 24 hr 0609/24/24 09/24/24 11:51 16:29 20:22 WBC RBC Hgb Hct MCV MCH MCHC RDW Plt Count MPV Immature Gran % (Auto) Neut % (Auto) Lymph % (Auto) [place] % (Auto) Eos % (Auto) Baso % (Auto) Lymph # (Auto) [place] # (Auto) Eos # (Auto) Baso # (Auto) Abs Immat Gran (auto) Absolute Neuts (auto) Absolute Nucleated RBC Nucleated RBC % Sodium Potassium Chloride Carbon Dioxide Anion Gap BUN Creatinine Estim Creat Clear Calc Estimated GFR Glucose POC Capillary Glucose 172 H 150 H 133 H Calcium Magnesium Total Bilirubin AST ALT Alkaline Phosphatase Total Protein Albumin 09/25/24 09/25/24 04:07 07:40 WBC 6.8 RBC 5.04 Hgb 12.7 L Hct 42.1 MCV 83.5 MCH 25.2 L MCHC 30.2 L RDW 15.3 H Plt Count 293 MPV 10.4 Immature Gran % (Auto) 0.1 Neut % (Auto) 65.5 Lymph % (Auto) 18.8 [place] % (Auto) 9.3 H Eos % (Auto) 5.3 H Baso % (Auto) 1.0 Lymph # (Auto) 1.27 [place] # (Auto) 0.6 Eos # (Auto) 0.4 H Baso # (Auto) 0.1 Abs Immat Gran (auto) 0.01 Absolute Neuts (auto) 4.4 Absolute Nucleated RBC 0.000 Nucleated RBC % 0.0 Sodium 139 Potassium 3.4 Chloride 104 Carbon Dioxide 29 Anion Gap 6 BUN 17 Creatinine 0.85 Estim Creat Clear Calc 183 Estimated GFR > 60 Glucose 128 H POC Capillary Glucose 149 H Calcium 9.1 Magnesium 2.3 Total Bilirubin 0.8 AST 21 ALT 20 Alkaline Phosphatase 74 Total Protein 7.0 Albumin 3.9 Quality VTE Prophylaxis VTE prophylaxis: pharmacologic ordered
--- NOTE | 2024-09-25 09:06 | P.PNCA_ITS ---
Progress Note: A&P Assessment and Plan (1) Uncontrolled hypertension: Code(s): I10 - Essential (primary) hypertension Status: Acute Assessment and Plan: Presented with BP 212/139 mmHg. Gradually improving. * Continue lisinopril 40mg daily * Continue coreg 25mg b.i.d. * Because of his diastolic dysfunction, added spironolactone 25mg daily. * Could consider shifting lisinopril to Entresto if he could afford it * Can also add amlodipine, but will assess his response to spironolactone first * Avoid significant decrease in BP, gradually add agents to lower BP to goal (2) CHF (congestive heart failure): Code(s): I50.9 - Heart failure, unspecified Status: Acute Assessment and Plan: Does not appear to be in decompensated heart failure at this time. As above, adding spironolactone. (3) Chest pain: Code(s): R07.9 - Chest pain, unspecified Status: Acute Assessment and Plan: Atypical chest pain, resolved. Serial troponin levels negative. No ischemic changes on EKG, but prolonged QTc on most recent EKG, will repeat. Reportedly had LHC less than a year ago with no obstructive disease. (4) Syncope: Code(s): R55 - Syncope and collapse Status: Acute Assessment and Plan: Reports history of syncope and apparently LifeVest was recommended in the past - assume for some type of ventricular arrhythmia. Has not had syncope since he estimates May of this year. Will have 30 day tele placed at discharge. Subjective Date/time seen: 09/25/24 09:06 Interval history: Cardiology follow up visit Transferred to ICU yesterday because of suicidal ideations. He has agreed to be admitted to [place] for inpatient mental health treatment. Denies any chest pain, shortness of breath, palpitations. Feeling much better after getting some sleep last night. Review of Systems 2 Constitutional: Constitutional: Denies chills, Denies fever(s), Denies headache(s) and Denies malaise Eyes: Eyes: Denies change in vision ENT: Reports Normal hearing present, Denies dizziness, Denies headache(s) and Denies hearing loss Cardiovascular: Cardiovascular: Reports chest pain, Reports chest pain at rest, Denies chest pain with activity, Reports syncope, Denies leg edema, Denies palpitations, Denies dyspnea and Denies dyspnea on exertion Respiratory: Respiratory: Denies cough, Denies dyspnea, Denies dyspnea on exertion and Denies wheezing Gastrointestinal: Gastrointestinal: Denies abdominal pain, Denies constipation and Denies diarrhea Genitourinary: Genitourinary: Denies hematuria and Denies dysuria Musculoskeletal: Musculoskeletal: Denies myalgias, Denies arthralgias and Denies muscle cramps Integumentary/Breasts: Skin/Breast: Denies wounds Neurologic: Reports Normal hearing present, Denies confusion, Denies dizziness, Reports syncope and Denies headache(s) Psychiatric: Psychiatric: Denies anxiety, Denies confusion and Denies de pression Endocrine: Endocrine: Denies cold intolerance, Denies flushing, Denies heat intolerance and Denies palpitations Hematologic/Lymphatic: Hematologic/Lymphatic: Denies easy bleeding and Denies easy bruising Allergic/Immunologic: Allergic/Immunologic: Denies wheezing Exam Const: General: comfortable, no acute distress, alert and awake; No confusion Orientation/consciousness: patient oriented x3 and No confusion HENMT: Head: normal to inspection Eyes: General: appearance normal, both eyes and all related structures Pupils: Equal, round and reactive pupils present Neck: Neck: normal visual inspection, supple and no JVD Carotids: normal carotid upstroke Resp: Effort & Inspection: normal respiratory effort Auscultation: clear to auscultation bilaterally and diminished lung sounds Cardio: Rate: regular rate Rhythm: regular rhythm Heart sounds: S1 normal heart sound present, S2 normal heart sound present and no murmurs GI: Auscultation: normal bowel sounds Skin: General skin exam: normal color Neuro: General: patient oriented x3 and No confusion Cranial nerves: Yes Equal, round and reactive pupils present and Yes Normal hearing present Extrem: General: normal to inspection Psych: Appearance: grossly normal Mental Status: mental status grossly normal Objective Data Vital Signs Vital Signs: Vital Signs - 24 hr 09/24/24 12:00 09/24/24 12:40 09/24/24 16:00 Temperature 36.7 C Pulse Rate 77 66 65 Respiratory Rate 18 Blood Pressure 168/87 H Pulse Oximetry 96 Oxygen Delivery Fraction of Inspired Oxygen 09/24/24 16:36 09/24/24 16:59 09/24/24 18:03 Temperature 36.3 C L Pulse Rate 74 69 69 Respiratory Rate 16 12 Blood Pressure 174/105 H 183/112 H Pulse Oximetry 99 99 Oxygen Delivery Fraction of Inspired Oxygen 09/24/24 20:00 09/24/24 20:00 09/24/24 20:00 Temperature 36.5 C Pulse Rate 74 74 72 Respiratory Rate 12 12 Blood Pressure 174/109 H Pulse Oximetry 97 97 Oxygen Delivery Room Air Fraction of Inspired Oxygen 21 09/24/24 20:59 09/25/24 00:00 09/25/24 00:00 Temperature 36.5 C Pulse Rate 72 72 Respiratory Rate 15 Blood Pressure 173/104 H Pulse Oximetry 97 98 Oxygen Delivery Room Air Fraction of Inspired Oxygen 21 09/25/24 04:00 09/25/24 05:32 09/25/24 05:44 Temperature 36.5 C Pulse Rate 75 78 76 Respiratory Rate 18 Blood Pressure 214/119 H Pulse Oximetry 100 Oxygen Delivery Fraction of Inspired Oxygen 09/25/24 07:00 09/25/24 08:00 09/25/24 08:00 Temperature Pulse Rate 73 70 Respiratory Rate 16 Blood Pressure 147/72 H 147/72 H Pulse Oximetry Oxygen Delivery Room Air Fraction of Inspired Oxygen 09/25/24 08:00 Temperature Pulse Rate 75 Respiratory Rate Blood Pressure Pulse Oximetry Oxygen Delivery Fraction of Inspired Oxygen Intake/Output Intake/Output: Intake & Output 09/22/24 09/23/24 09/24/24 09/25/24 23:59 23:59 23:59 23:59 Intake Total 980 1330 1680 750 Output Total 450 800 Balance 530 1330 1680 -50 Meds/Results Medications: Active Medications Generic Name Dose Route Start Last Admin Trade Name Freq PRN Reason Stop Dose Admin Acetaminophen 650 mg 09/21/24 13:07 09/23/24 22:09 Acetaminophen 325 Mg Tablet PO 650 mg Q4H PRN Administration Mild Pain (1-3) or Fever Hydrocodone Bitart/Acetaminophen 1 tab 09/21/24 13:07 09/23/24 06:02 Hydrocodone/Acetaminophen (*Crx) 5-325 Mg Tablet PO 1 tab Q4H PRN Administration Pain Rated 4-6 Albuterol 2 puff 09/21/24 15:54 Albuterol Sulfate (*Sp) Aerosol 1 Puff INHALATION Q6HRT PRN Shortness Of Breath Aspirin 81 mg 09/22/24 09:00 09/25/24 05:42 Aspirin 81 Mg Enteric Tablet PO 81 mg DAILY VIKY Administration Carvedilol 25 mg 09/21/24 17:00 09/25/24 05:44 Carvedilol 25 Mg Tablet PO 25 mg BIDWM VIKY Administration Dextrose 12.5 gm 09/21/24 15:31 Dextrose 50% 25 Gm/50 Ml Syringe IV PUSH PRN PRN Hypoglycemia Protocol Enoxaparin Sodium 40 mg 09/22/24 09:00 09/25/24 08:37 Enoxaparin 40 Mg/0.4 Ml Syringe SUB-Q 40 mg DAILY VIKY Administration Fluticasone Propionate 1 spray 09/23/24 21:00 09/25/24 08:37 Fluticasone Propionate 0.05% Na Spr 16 Gm Btl (*Bkc) NASAL 1 spray Q12HR VIKY Administration Furosemide 40 mg 09/22/24 09:00 09/25/24 05:44 Furosemide 40 Mg Tablet PO 40 mg DAILY VIKY Administration Glucagon 1 mg 09/21/24 15:31 Glucagon For Inj 1 Mg Vial IM PRN PRN Hypoglycemia Protocol Glucose 15 gm 09/21/24 15:31 Glucose Oral Gel 15 Gm Of Glucse In 37.5 Gm Tube PO PRN PRN Hypoglycemia Protocol Hydralazine HCl 25 mg 09/22/24 09:00 09/25/24 05:44 Hydralazine Hcl 25 Mg Tablet PO 25 mg QID VIKY Administration Hydralazine HCl 10 mg 09/24/24 23:01 09/25/24 05:32 Hydralazine Hcl 20 Mg/Ml Vial IV PUSH 10 mg Q4H PRN Administration SBP > 165 or DBP > 105 Hydroxyzine HCl 25 mg 09/21/24 15:44 09/24/24 20:21 Hydroxyzine Hcl 25 Mg Tablet PO 25 mg TID PRN Administration anxiety Dextrose 1,000 mls @ 100 mls/hr 09/21/24 15:31 Dextrose 5% 1,000 Ml IVPB PRN PRN Hypoglycemia Protocol Insulin Aspart 3 - 6 units 09/21/24 17:00 09/25/24 07:51 Insulin Aspart (*Bkc) 100 Units/Ml SUB-Q Not Given TIDWM VIKY Protocol Insulin Aspart 1 - 3 units 09/21/24 21:00 09/24/24 20:58 Insulin Aspart (*Bkc) 100 Units/Ml SUB-Q Not Given HS [facility] Protocol Lisinopril 40 mg 09/25/24 09:00 09/25/24 05:43 Lisinopril 20 Mg Tablet PO 40 mg DAILY VIKY Administration Metformin HCl 500 mg 09/25/24 08:00 09/25/24 08:37 Metformin Hcl 500 Mg Tablet PO 500 mg BIDWM VIKY Administration Morphine Sulfate 4 mg 09/21/24 13:07 09/21/24 21:30 Morphine Sulfate (*Crx) 4 Mg/Ml Inj IV PUSH 4 mg Q2H PRN Administration Pain Rated 7-10 Ondansetron HCl 4 mg 09/21/24 13:07 09/21/24 21:39 Ondansetron Inj 4 Mg/2 Ml Vial IV PUSH 4 mg Q4H PRN Administration Nausea Pantoprazole Sodium 40 mg 09/22/24 09:00 09/25/24 08:37 Pantoprazole 40 Mg Tablet PO 40 mg QAM VIKY Administration Polyethylene Glycol 17 gm 09/23/24 18:25 09/25/24 08:37 Polyethylene Glycol 3350 17 Gm Powd.Pack PO 17 gm QAM VIKY Administration Spironolactone 25 mg 09/25/24 09:00 09/25/24 05:44 Spironolactone 25 Mg Tablet PO 25 mg QAM VIKY Administration Trazodone HCl 100 mg 09/21/24 15:44 09/24/24 20:17 Trazodone Hcl 50 Mg Tablet PO 100 mg HS PRN Administration insomnia Radiology Results: ITS Impressions Chest X-Ray 09/21/24 08:46 IMPRESSION: No focal infiltrate or effusion. Chest/Abdomen/Pelvis CTA 09/21/24 09:55 IMPRESSION: 1. Normal caliber aorta with no dissection or other acute cardiopulmonary disease. 2. Enlargement of the central pulmonary arteries consistent with pulmonary arterial hypertension. 3. Diffuse hepatic steatosis. 4. Mild edematous-appearing gallbladder wall thickening versus trace amount of pericholecystic fluid with no gallbladder dilation nor evident cholelithiasis on recent MRI/MRCP to suggest acute cholecystitis. Differential would include chronic cholecystitis, liver, heart, renal disease or other generalized edema forming states. ADDENDUM: 09/24/24 9275 ADDENDUM: There is some concern for renal artery stenosis. There is no evident atherosclerotic plaque or stenosis in the abdominal aorta, the bilateral renal arteries, celiac axis, superior or inferior mesenteric arteries. Upper Quadrant Ultrasound 09/21/24 11:10 Impression: No significant abnormality seen. Head CT 09/22/24 12:10 IMPRESSION: 1. No acute intracranial abnormality. 2: Moderate left maxillary sinusitis. Labs Labs: Laboratory Results - last 24 hr 09/24/24 09/24/24 09/24/24 11:51 16:29 20:22 WBC RBC Hgb Hct MCV MCH MCHC RDW Plt Count MPV Immature Gran % (Auto) Neut % (Auto) Lymph % (Auto) [place] % (Auto) Eos % (Auto) Baso % (Auto) Lymph # (Auto) [place] # (Auto) Eos # (Auto) Baso # (Auto) Abs Immat Gran (auto) Absolute Neuts (auto) Absolute Nucleated RBC Nucleated RBC % Sodium Potassium Chloride Carbon Dioxide Anion Gap BUN Creatinine Estim Creat Clear Calc Estimated GFR Glucose POC Capillary Glucose 172 H 150 H 133 H Calcium Magnesium Total Bilirubin AST ALT Alkaline Phosphatase Total Protein Albumin 09/25/24 09/25/24 04:07 07:40 WBC 6.8 RBC 5.04 Hgb 12.7 L Hct 42.1 MCV 83.5 MCH 25.2 L MCHC 30.2 L RDW 15.3 H Plt Count 293 MPV 10.4 Immature Gran % (Auto) 0.1 Neut % (Auto) 65.5 Lymph % (Auto) 18.8 [place] % (Auto) 9.3 H Eos % (Auto) 5.3 H Baso % (Auto) 1.0 Lymph # (Auto) 1.27 [place] # (Auto) 0.6 Eos # (Auto) 0.4 H Baso # (Auto) 0.1 Abs Immat Gran (auto) 0.01 Absolute Neuts (auto) 4.4 Absolute Nucleated RBC 0.000 Nucleated RBC % 0.0 Sodium 139 Potassium 3.4 Chloride 104 Carbon Dioxide 29 Anion Gap 6 BUN 17 Creatinine 0.85 Estim Creat Clear Calc 183 Estimated GFR > 60 Glucose 128 H POC Capillary Glucose 149 H Calcium 9.1 Magnesium 2.3 Total Bilirubin 0.8 AST 21 ALT 20 Alkaline Phosphatase 74 Total Protein 7.0 Albumin 3.9
[2024-09-25] MEDS: hydrOXYzine HCL 25 MG TABLET PO ×2 (10:33→16:11)
[2024-09-25 12:42] LABS: Glucose Point of Care 139 mg/dl (65-105)
--- NOTE | 2024-09-25 15:58 | PC.NURSE ---
1442: Patient restless and aggravated. Removed IV, pulled off tele leads and demanded to leave. Dr. Arellano at bedside; discussed why the patient must stay in the hospital, the course and plan. 1500: Patient unhappy and frustrated. Patient refused tele leads and IV at this time. Call placed to Dr. Webb; Ok to make Patient med/surg and leave IV out at this time.
--- NOTE | 2024-09-25 16:19 | P.PNIM_ITS ---
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 insulin use: without residential use Diabetes mellitus complication status: with hyperglycemia Qualified Code(s): E11.65 - Type 2 diabetes mellitus with hyperglycemia Code(s): E11.9 - Type 2 diabetes mellitus without complications Status: Acute (5) Obstructive sleep apnea: Code(s): G47.33 - Obstructive sleep apnea (adult) (pediatric) Status: Acute (6) Tobacco abuse disorder: Code(s): Z72.0 - Tobacco use Status: Acute (7) Depression: Code(s): F32.A - Depression, unspecified Status: Acute Plan This is a 39-year-old male with history of cerebrovascular accident and myocardial infarction due to hypertensive disease, historically poorly controlled hypertension, type 2 diabetes mellitus, untreated obstructive sleep apnea, pancreatitis, hepatic steatosis, morbid obesity, and anxiety who presented to the emergency department via EMS for evaluation of chest pain. His symptoms began about 3 hours prior to arrival while taking a shower. He describes a pushing sensation just left of the mid sternum radiating somewhat into the left arm and hand. He felt a bit short of breath with that and endorses nausea as well. The pain is not reproducible on palpation. He has not noticed any significant aggravating factors but reports that a GI cocktail helped immensely. With further questioning he reports having significant GERD symptoms, worse recently, for which he has been taking Tums often. He also endorses bloating and belching and frequent epigastric discomfort. He denies syncope, near syncope, pleuritic pain, palpitations, cough, hematemesis, melena, hematochezia, and calf pain. Of note the patient's nurse called me to report that the patient has been feeling increasingly depressed. He has no thoughts of suicide and no plan but is asking to see a psychiatrist while in the hospital. In the ED: Blood pressure was 212/139 on arrival. Labs were significant for WBC count of 10.1, hemoglobin 13.1, glucose 160, troponin less than 0.012, proBNP 1870. CT of the chest, abdomen, and pelvis showed no acute findings but did note enlargement of the central pulmonary arteries consistent with pulmonary arterial hypertension, diffuse hepatic steatosis, and mild edematous appearing gallbladder wall thickening versus trace amount of pericholecystic fluid. Right upper quadrant ultrasound was normal. EKG showed sinus rhythm with nonspecific ST T-wave abnormalities. He was given a GI cocktail and hydralazine 10 mg IV and he is being admitted in this setting for close monitoring. Accelerated hypertension improved with p.r.n. hydralazine. Currently on lisinopril 20 mg carvedilol 25 mg b.i.d. Lasix 40 mg daily. Amlodipine was discontinued in the past due to leg swelling. Hydralazine was added which had helped. Added back hydralazine. Does not seem to be on spironolactone anymore. Added spironolactone 25 mg daily. Echo reviewed. Up titrate lisinopril to 40 mg daily. Continue to monitor and adjust blood pressure medication as needed. Atypical chest pain troponin trend negative. Suspected GI/GERD related. GI has been consulted. potentially EGD on Tuesday Right upper quadrant pain/discomfort. CTA showed some mildly edematous appearing gallbladder wall thickening versus trace amount of pericholecystic fluid with no gallbladder dilation not evident cholelithiasis on recent MRI/MRCP. Follow-up right upper quadrant ultrasound was unremarkable. EGD came back normal 09/24/2024 Pulmonary arterial hypertension: Echo with EF 45-50% severe MR moderate TR grade 4 diastolic dysfunction moderate concentric left ventricular thickness. Already on carvedilol and lisinopril. Add spironolactone. History of cardiomyopathy with ejection fraction less than 20% in the fast cardiac catheterization at that time showed no coronary artery disease. Been diagnosed with sleep apnea long time ago was suggested CPAP but not on treatment because of cost. Apnea 04/2024 with AHI 9.9. fu with pcp for sleepapnea testing and possibly start CPAP. Headache CT head was negative. Shows left maxillary sinusitis clinically no acute sinusitis. Added Flonase Type 2 diabetes on metformin Anxiety depression: Follow up with Psychiatry as outpatient basis. Crisis team to see prior to discharge. Suicide attempt/suicidal thought: Currently on 04/25. Crisis team to see when stable DVT prophylaxis Lovenox code status full code Subjective Date/time seen: 09/25/24 16:19 Interval history: Overnight events noted. Denies suicidal thought. Blood pressure has been elev ated. Received IV p.r.n. Review of Systems Review of Systems: All systems reviewed & are unremarkable except as noted in HPI and below (HPI) Exam Narrative: General: Well-developed, nontoxic-appearing male sitting up in bed in no acute distress. HEENT: PERRL, EOMI. Sclera anicteric. Oral mucosa moist. Crowded oropharynx. Neck: Supple. Limited due to neck circumference. Respiratory: Lungs are clear to auscultation bilaterally. Cardiovascular: Regular rate and rhythm with S1-S2. No murmur, rub, or gallop. Gastrointestinal: Abdomen is soft, obese, nontender, and nondistended with positive bowel sounds. Skin: Warm and dry. No rash or lesions on limited exam. Extremities: No cyanosis or clubbing. 1+ bilateral lower extremity edema. No palpable knots or cords. Neurological: Alert. Cranial nerves 2-12 are grossly intact. No gross focal deficits to casual conversation. Psychiatric: Pleasant and cooperative with appropriate mood and depressed affect. Objective Data Vital Signs Vital Signs: Vital Signs - 24 hr 09/24/24 16:36 09/24/24 16:59 09/24/24 18:03 Temperature 97.4 F L Pulse Rate 74 69 69 Respiratory Rate 16 12 Blood Pressure 174/105 H 183/112 H Pulse Oximetry 99 99 Oxygen Delivery Fraction of Inspired Oxygen 09/24/24 20:00 09/24/24 20:00 09/24/24 20:00 Temperature 97.7 F Pulse Rate 74 74 72 Respiratory Rate 12 12 Blood Pressure 174/109 H Pulse Oximetry 97 97 Oxygen Delivery Room Air Fraction of Inspired Oxygen 21 09/24/24 20:59 09/25/24 00:00 09/25/24 00:00 Temperature 97.7 F Pulse Rate 72 72 Respiratory Rate 15 Blood Pressure 173/104 H Pulse Oximetry 97 98 Oxygen Delivery Room Air Fraction of Inspired Oxygen 09/25/24 04:00 09/25/24 05:32 09/25/24 05:44 Temperature 97.7 F Pulse Rate 75 78 76 Respiratory Rate 18 Blood Pressure 214/119 H Pulse Oximetry 100 Oxygen Delivery Fraction of Inspired Oxygen 09/25/24 07:00 09/25/24 08:00 09/25/24 08:00 Temperature Pulse Rate 73 70 Respiratory Rate 16 Blood Pressure 147/72 H 147/72 H Pulse Oximetry Oxygen Delivery Room Air Fraction of Inspired Oxygen 09/25/24 08:00 09/25/24 12:00 09/25/24 12:00 Temperature 97.9 F Pulse Rate 75 74 74 Respiratory Rate 21 H Blood Pressure 150/80 H Pulse Oximetry Oxygen Delivery Fraction of Inspired Oxygen Intake/Output Intake/Output: Intake & Output 09/22/24 09/23/24 09/24/24 09/25/24 23:59 23:59 23:59 23:59 Intake Total 980 1330 1680 1100 Output Total 450 800 Balance 530 1330 1680 300 Meds/Results Medications: Active Medications Generic Name Dose Route Start Last Admin Trade Name Freq PRN Reason Stop Dose Admin Acetaminophen 650 mg 09/21/24 13:07 09/23/24 22:09 Acetaminophen 325 Mg Tablet PO 650 mg Q4H PRN Administration Mild Pain (1-3) or Fever Hydrocodone Bitart/Acetaminophen 1 tab 09/21/24 13:07 09/23/24 06:02 Hydrocodone/Acetaminophen (*Crx) 5-325 Mg Tablet PO 1 tab Q4H PRN Administration Pain Rated 4-6 Albuterol 2 puff 09/21/24 15:54 Albuterol Sulfate (*Sp) Aerosol 1 Puff INHALATION Q6HRT PRN Shortness Of Breath Aspirin 81 mg 09/22/24 09:00 09/25/24 05:42 Aspirin 81 Mg Enteric Tablet PO 81 mg DAILY VIKY Administration Carvedilol 25 mg 09/21/24 17:00 09/25/24 16:11 Carvedilol 25 Mg Tablet PO 25 mg BIDWM VIKY Administration Dextrose 12.5 gm 09/21/24 15:31 Dextrose 50% 25 Gm/50 Ml Syringe IV PUSH PRN PRN Hypoglycemia Protocol Enoxaparin Sodium 40 mg 09/22/24 09:00 09/25/24 08:37 Enoxaparin 40 Mg/0.4 Ml Syringe SUB-Q 40 mg DAILY VIKY Administration Fluticasone Propionate 1 spray 09/23/24 21:00 09/25/24 08:37 Fluticasone Propionate 0.05% Na Spr 16 Gm Btl (*Bkc) NASAL 1 spray Q12HR VIKY Administration Furosemide 40 mg 09/22/24 09:00 09/25/24 05:44 Furosemide 40 Mg Tablet PO 40 mg DAILY VIKY Administration Glucagon 1 mg 09/21/24 15:31 Glucagon For Inj 1 Mg Vial IM PRN PRN Hypoglycemia Protocol Glucose 15 gm 09/21/24 15:31 Glucose Oral Gel 15 Gm Of Glucse In 37.5 Gm Tube PO PRN PRN Hypoglycemia Protocol Hydralazine HCl 25 mg 09/22/24 09:00 09/25/24 16:11 Hydralazine Hcl 25 Mg Tablet PO 25 mg QID VIKY Administration Hydralazine HCl 10 mg 09/24/24 23:01 09/25/24 05:32 Hydralazine Hcl 20 Mg/Ml Vial IV PUSH 10 mg Q4H PRN Administration SBP > 165 or DBP > 105 Hydroxyzine HCl 25 mg 09/21/24 15:44 09/25/24 16:11 Hydroxyzine Hcl 25 Mg Tablet PO 25 mg TID PRN Administration anxiety Dextrose 1,000 mls @ 100 mls/hr 09/21/24 15:31 Dextrose 5% 1,000 Ml IVPB PRN PRN Hypoglycemia Protocol Insulin Aspart 3 - 6 units 09/21/24 17:00 09/25/24 16:10 Insulin Aspart (*Bkc) 100 Units/Ml SUB-Q Not Given TIDWM [facility] Protocol Insulin Aspart 1 - 3 units 09/21/24 21:00 09/24/24 20:58 Insulin Aspart (*Bkc) 100 Units/Ml SUB-Q Not Given HS [facility] Protocol Lisinopril 40 mg 09/25/24 09:00 09/25/24 05:43 Lisinopril 20 Mg Tablet PO 40 mg DAILY VIKY Administration Metformin HCl 500 mg 09/25/24 08:00 09/25/24 16:11 Metformin Hcl 500 Mg Tablet PO 500 mg BIDWM VIKY Administration Morphine Sulfate 4 mg 09/21/24 13:07 09/21/24 21:30 Morphine Sulfate (*Crx) 4 Mg/Ml Inj IV PUSH 4 mg Q2H PRN Administration Pain Rated 7-10 Ondansetron HCl 4 mg 09/21/24 13:07 09/21/24 21:39 Ondansetron Inj 4 Mg/2 Ml Vial IV PUSH 4 mg Q4H PRN Administration Nausea Pantoprazole Sodium 40 mg 09/22/24 09:00 09/25/24 08:37 Pantoprazole 40 Mg Tablet PO 40 mg QAM VIKY Administration Polyethylene Glycol 17 gm 09/23/24 18:25 09/25/24 08:37 Polyethylene Glycol 3350 17 Gm Powd.Pack PO 17 gm QAM VIKY Administration Spironolactone 25 mg 09/25/24 09:00 09/25/24 05:44 Spironolactone 25 Mg Tablet PO 25 mg QAM VIKY Administration Trazodone HCl 100 mg 09/21/24 15:44 09/24/24 20:17 Trazodone Hcl 50 Mg Tablet PO 100 mg HS PRN Administration insomnia Radiology Results: ITS Impressions Chest X-Ray 09/21/24 08:46 IMPRESSION: No focal infiltrate or effusion. Chest/Abdomen/Pelvis CTA 09/21/24 09:55 IMPRESSION: 1. Normal caliber aorta with no dissection or other acute cardiopulmonary disease. 2. Enlargement of the central pulmonary arteries consistent with pulmonary arterial hypertension. 3. Diffuse hepatic steatosis. 4. Mild edematous-appearing gallbladder wall thickening versus trace amount of pericholecystic fluid with no gallbladder dilation nor evident cholelithiasis on recent MRI/MRCP to suggest acute cholecystitis. Differential would include c hronic cholecystitis, liver, heart, renal disease or other generalized edema forming states. ADDENDUM: 09/24/24 1252 ADDENDUM: There is some concern for renal artery stenosis. There is no evident atherosclerotic plaque or stenosis in the abdominal aorta, the bilateral renal arteries, celiac axis, superior or inferior mesenteric arteries. Upper Quadrant Ultrasound 09/21/24 11:10 Impression: No significant abnormality seen. Head CT 09/22/24 12:10 IMPRESSION: 1. No acute intracranial abnormality. 2: Moderate left maxillary sinusitis. Labs Labs: Laboratory Results - last 24 hr 09/24/24 09/24/24 09/25/24 16:29 20:22 04:07 WBC 6.8 RBC 5.04 Hgb 12.7 L Hct 42.1 MCV 83.5 MCH 25.2 L MCHC 30.2 L RDW 15.3 H Plt Count 293 MPV 10.4 Immature Gran % (Auto) 0.1 Neut % (Auto) 65.5 Lymph % (Auto) 18.8 [place] % (Auto) 9.3 H Eos % (Auto) 5.3 H Baso % (Auto) 1.0 Lymph # (Auto) 1.27 [place] # (Auto) 0.6 Eos # (Auto) 0.4 H Baso # (Auto) 0.1 Abs Immat Gran (auto) 0.01 Absolute Neuts (auto) 4.4 Absolute Nucleated RBC 0.000 Nucleated RBC % 0.0 Sodium 139 Potassium 3.4 Chloride 104 Carbon Dioxide 29 Anion Gap 6 BUN 17 Creatinine 0.85 Estim Creat Clear Calc 183 Estimated GFR > 60 Glucose 128 H POC Capillary Glucose 150 H 133 H Calcium 9.1 Magnesium 2.3 Total Bilirubin 0.8 AST 21 ALT 20 Alkaline Phosphatase 74 Total Protein 7.0 Albumin 3.9 09/25/24 09/25/24 07:40 12:13 WBC RBC Hgb Hct MCV MCH MCHC RDW Plt Count MPV Immature Gran % (Auto) Neut % (Auto) Lymph % (Auto) [place] % (Auto) Eos % (Auto) Baso % (Auto) Lymph # (Auto) [place] # (Auto) Eos # (Auto) Baso # (Auto) Abs Immat Gran (auto) Absolute Neuts (auto) Absolute Nucleated RBC Nucleated RBC % Sodium Potassium Chloride Carbon Dioxide Anion Gap BUN Creatinine Estim Creat Clear Calc Estimated GFR Glucose POC Capillary Glucose 149 H 139 H Calcium Magnesium Total Bilirubin AST ALT Alkaline Phosphatase Total Protein Albumin
[2024-09-25 16:31] LABS: Glucose Point of Care 168 mg/dl (65-105)
--- NOTE | 2024-09-25 17:27 | PC.NURSE ---
1700: Patient became very upset when told he could not have his t-shirt. Yelling I want out of here and My blood pressure will never get better when I'm this worked up over having to stay here. This Rn observed the patient pacing the room, pushing tray table, and bouncing his legs when sitting. Patient polite but frustrated. Attempted verbal de-escalation using calm, clear communication. Provided reorientation and reassurance. Ensured environment was safe. Notified charge nurseDeisy and attempted to call awaiting return call. Frequent checks for safety and circulation. Sitter bedside 1720: cell tender spoke with Dr. Webb, explained the situation. MD stated he will come bedside and assess the patient.
--- NOTE | 2024-09-25 19:24 | P.DS_ITS ---
DS: Admitting Diagnosis Discharge Date 09/25/24 Admitting Diagnosis 10/05/2024 DS: Discharge Diagnosis Discharge Diagnosis (1) Uncontrolled hypertension: Code(s): I10 - Essential (primary) hypertension Status: Acute (2) Chest pain: Code(s): R07.9 - Chest pain, unspecified Status: Acute (3) Enlarged pulmonary artery: Code(s): I28.8 - Other diseases of pulmonary vessels Status: Acute (4) Type 2 diabetes mellitus: Qualifiers: Diabetes mellitus long term care phlebotomist insulin use: without alf use Diabetes mellitus complication status: with hyperglycemia Qualified Code(s): E11.65 - Type 2 diabetes mellitus with hyperglycemia Code(s): E11.9 - Type 2 diabetes mellitus without complications Status: Acute (5) Obstructive sleep apnea: Code(s): G47.33 - Obstructive sleep apnea (adult) (pediatric) Status: Acute (6) Tobacco abuse disorder: Code(s): Z72.0 - Tobacco use Status: Acute (7) Depression: Code(s): F32.A - Depression, unspecified Status: Acute DS: Summary Hospital Course Hospital Course: This is a 39-year-old male with history of cerebrovascular accident and myocardial infarction due to hypertensive disease, historically poorly controlled hypertension, type 2 diabetes mellitus, untreated obstructive sleep apnea, pancreatitis, hepatic steatosis, morbid obesity, and anxiety who presented to the emergency department via EMS for evaluation of chest pain. His symptoms began about 3 hours prior to arrival while taking a shower. He describes a pushing sensation just left of the mid sternum radiating somewhat into the left arm and hand. He felt a bit short of breath with that and endorses nausea as well. The pain is not reproducible on palpation. He has not noticed any significant aggravating factors but reports that a GI cocktail helped immensely. With further questioning he reports having significant GERD symptoms, worse recently, for which he has been taking Tums often. He also endorses bloating and belching and frequent epigastric discomfort. He denies syncope, near syncope, pleuritic pain, palpitations, cough, hematemesis, melena, hematochezia, and calf pain. Of note the patient's nurse called me to report that the patient has been feeling increasingly depressed. He has no thoughts of suicide and no plan but is asking to see a psychiatrist while in the hospital. In the ED: Blood pressure was 212/139 on arrival. Labs were significant for WBC count of 10.1, hemoglobin 13.1, glucose 160, troponin less than 0.012, proBNP 1870. CT of the chest, abdomen, and pelvis showed no acute findings but did note enlargement of the central pulmonary arteries consistent with pulmonary arterial hypertension, diffuse hepatic steatosis, and mild edematous appearing gallbladder wall thickening versus trace amount of pericholecystic fluid. Right upper quadrant ultrasound was normal. EKG showed sinus rhythm with nonspecific ST T-wave abnormalities. He was given a GI cocktail and hydralazine 10 mg IV and he is being admitted in this setting for close monitoring. Accelerated hypertension improved with p.r.n. hydralazine. Currently on lisinopril 20 mg carvedilol 25 mg b.i.d. Lasix 40 mg daily. Amlodipine was discontinued in the past due to leg swelling. Hydralazine was added which had helped. Added back hydralazine. Does not seem to be on spironolactone anymore. Added spironolactone 25 mg daily. Echo reviewed. Up titrate lisinopril to 40 mg daily. Continue to monitor and adjust blood pressure medication as needed. Atypical chest pain troponin trend negative. Suspected GI/GERD related. GI has been consulted. potentially EGD on Tuesday Right upper quadrant pain/discomfort. CTA showed some mildly edematous appearing gallbladder wall thickening versus trace amount of pericholecystic fluid with no gallbladder dilation not evident cholelithiasis on recent MRI/MRCP. Follow-up right upper quadrant ultrasound was unremarkable. EGD came back normal 09/24/2024 Pulmonary arterial hypertension: Echo with EF 45-50% severe MR moderate TR grade 4 diastolic dysfunction moderate concentric left ventricular thickness. Already on carvedilol and lisinopril. Add spironolactone. History of cardiomyopathy with ejection fraction less than 20% in the fast cardiac catheterization at that time showed no coronary artery disease. Been diagnosed with sleep apnea long time ago was suggested CPAP but not on treatment because of cost. Apnea 04/2024 with AHI 9.9. fu with pcp for sleepapnea testing and possibly start CPAP. Headache CT head was negative. Shows left maxillary sinusitis clinically no acute sinusitis. Added Flonase Type 2 diabetes on metformin Anxiety depression: Follow up with Psychiatry as outpatient basis. Crisis team seen prior to discharge and plan follow-up as an outpatient basis. Suicide attempt/suicidal thought: Was placed on 1 on 1 Crisis team evaluated and planned follow-up as an outpatient basis. DVT prophylaxis Lovenox code status full code Time Spent with Patient Time attestation: Total time spent providing and/or coordinating discharge services: 45 minutes Exam Narrative: General: Well-developed, nontoxic-appearing male sitting up in bed in no acute distress. HEENT: PERRL, EOMI. Sclera anicteric. Oral mucosa moist. Crowded oropharynx. Neck: Supple. Limited due to neck circumference. Respiratory: Lungs are clear to auscultation bilaterally. Cardiovascular: Regular rate and rhythm with S1-S2. No murmur, rub, or gallop. Gastrointestinal: Abdomen is soft, obese, nontender, and nondistended with positive bowel sounds. Skin: Warm and dry. No rash or lesions on limited exam. Extremities: No cyanosis or clubbing. 1+ bilateral lower extremity edema. No palpable knots or cords. Neurological: Alert. Cranial nerves 2-12 are grossly intact. No gross focal deficits to casual conversation. Psychiatric: Pleasant and cooperative with appropriate mood and depressed affect. DS: Data Data Completed and Pending Completed studies during hospitalization: Pending at discharge 09/24/24 08:30 Surgical [PTH] Routine Imaging Radiologist's impression: ITS Impressions Chest X-Ray 09/21/24 08:46 IMPRESSION: No focal infiltrate or effusion. Chest/Abdomen/Pelvis CTA 09/21/24 09:55 IMPRESSION: 1. Normal caliber aorta with no dissection or other acute cardiopulmonary disease. 2. Enlargement of the central pulmonary arteries consistent with pulmonary arterial hypertension. 3. Diffuse hepatic steatosis. 4. Mild edematous-appearing gallbladder wall thickening versus trace amount of pericholecystic fluid with no gallbladder dilation nor evident cholelithiasis on recent MRI/MRCP to suggest acute cholecystitis. Differential would include chronic cholecystitis, liver, heart, renal disease or other generalized edema forming states. ADDENDUM: 09/24/24 4582 ADDENDUM: There is some concern for renal artery stenosis. There is no evident atherosclerotic plaque or stenosis in the abdominal aorta, the bilateral renal arteries, celiac axis, superior or inferior mesenteric arteries. Upper Quadrant Ultrasound 09/21/24 11:10 Impression: No significant abnormality seen. Head CT 09/22/24 12:10 IMPRESSION: 1. No acute intracranial abnormality. 2: Moderate left maxillary sinusitis. Discharge Plan Discharge Attending physician on discharge: Nikolas Webb Consulting providers: Tammy Ac; Calos Adams; Praflu Sullivan; Lima Garland; Ana Paula Crain; Per Restrepo; Daren King; Mina Arellano; Rayne Llamas; Michael Washington; Berhane Sam; Antwan Muniz Discharging Clinician: Nikolas Webb Anticipated Discharge Date/Time: 09/25/24 18:11 Patient Disposition: Home Activity: as tolerated Diet: heart healthy Patient Instructions: Antibiotic Form Patient Language: Moldovan Stand Alone Forms: General Discharge Information Follow-up/Referrals: Tammy Ac, [employer] JOINTER-C [Advanced Practice Nurse] - 4 Weeks Shama,Emmanuel Lindsay NP [Primary Care Provider] - 1 Week Discharge Medications: New lisinopril 20 mg Tablet 40 mg PO DAILY Qty: 60 0RF hydralazine 25 mg Tablet 25 mg PO QID Qty: 120 0RF spironolactone 25 mg Tablet 25 mg PO QAM Qty: 30 0RF pantoprazole 40 mg Tablet,Delayed Release (Dr/Ec) 40 mg PO QAM Qty: 30 0RF metformin 500 mg tablet 500 mg PO BIDWMEAL Qty: 60 0RF Continued furosemide 40 mg Tablet 40 mg PO DAILY aspirin [Adult Low Dose Aspirin] 81 mg Tablet,Delayed Release (Dr/Ec) 81 mg PO DAILY metformin 500 mg tablet extended release 24 hr 500 mg PO BID Qty: 90 0RF Rx Instructions: take 500 mg daily for 1 week, then increase to twice day carvedilol [Coreg] 25 mg Tablet 25 mg PO BIDWM Qty: 90 0RF trazodone 100 mg tablet 100 mg PO HS PRN (Reason: insomnia) hydroxyzine HCl 25 mg tablet 25 mg PO TID PRN (Reason: anxiety) Discontinued lisinopril 10 mg Tablet 20 mg PO DAILY Qty: 90 0RF Date of admission: 09/25/24 08:03 Primary Care Provider: ShamaEmmanuel Admitting Provider: Nikolas Webb Attending physician on admission: Nikolas Webb Condition: Stable
== END 2024-09-25 20:17 | disposition home or self-care (01) | DRG 194 ==
LOC: ANHED 08:31 → ANHIMU 14:06 → ANH2MED 09-22 17:02 → ANHICU 09-24 17:48
PROVIDERS: Internal Medicine Gastroenterology; Physician Assistant; Admitting Provider Internal Medicine; Emergency Provider Emergency Medicine; PCP Nurse Practitioner Family; Visit Provider Internal Medicine
PROC: 0DJ08ZZ Inspection of Upper Intestinal Tract, Via Natural or Artificial Opening Endoscopic (ICD-10-PCS; principal; 2024-09-24 15:00)
DX: I11.0 Hypertensive heart disease with heart failure (principal); R07.89 Other chest pain; K21.9 Gastro-esophageal reflux disease without esophagitis; E11.9 Type 2 diabetes mellitus without complications; E66.01 Morbid (severe) obesity due to excess calories; G47.33 Obstructive sleep apnea (adult) (pediatric); E11.65 Type 2 diabetes mellitus with hyperglycemia; I25.5 Ischemic cardiomyopathy; I25.10 Atherosclerotic heart disease of native coronary artery without angina pectoris; I43 Cardiomyopathy in diseases classified elsewhere; R45.851 Suicidal ideations; I50.30 Unspecified diastolic (congestive) heart failure; K76.0 Fatty (change of) liver, not elsewhere classified; F41.8 Other specified anxiety disorders; J32.0 Chronic maxillary sinusitis; F17.210 Nicotine dependence, cigarettes, uncomplicated; Z86.73 Personal history of transient ischemic attack (TIA), and cerebral infarction without residual deficits; I25.2 Old myocardial infarction; Z79.84 Long term (current) use of oral hypoglycemic drugs; Z68.41 Body mass index [BMI] 40.0-44.9, adult
CPT/HCPCS: 36415; 70450; 71045; 71275; 74174; 76705; 80048; 80053; 80061; 82948; 83036; 83690; 83735; 83880; 84484; 85025; 85027; 85610; 85730; 88305; 93005; 94762; 96374; 96375; 96376; 99285; A9270; C8929; G0378; J0360; J1650; J1815; J2003; J2060; J2270; J2405; J2704; J7120; Q9957; Q9967